=== PATIENT | female | born 1990 | race Caucasian/White ===

== ENCOUNTER 2018-08-28 08:22 | Inpatient (IN) | payer OTHER ==
[2018-08-28 08:51] VITALS: BMI 23.5
--- NOTE | 2018-08-28 10:36 | HP ---
COWS - Scale Resting Pulse: 0= [place] 80 or Below Sweatin= Chills/Flushing Restless Observation: 3= Extraneous Movement Pupil Size: 0= Normal to Room Light Bone or Joint Aches: 4=Acute Joint/Muscle Pain Runny Nose/ Eye Tearin= Runny Nose/Eyes GI Upset > 30mins: 2= Nausea/Diarrhea Tremor Observation: 0= None Yawning Observation: 0= None Anxiety or Irritability: 2=Irritable/Anxious Goose Flesh Skin: 0=Smooth Skin COWS Score: 14 CIWA Score - Admission Criteria OASAS Guidelines: Admission for Medically Managed Detox: Requires at least one of the followin. CIWA greater than 12 2. Seizures within the past 24 hours 3. Delirium tremens within the past 24 hours 4. Hallucinations within the past 24 hours 5. Acute intervention needed for co occurring medical disorder 6. Acute intervention needed for co occurring psychiatric disorder 7. Severe withdrawal that cannot be handled at a lower level of care (continued vomiting, continued diarrhea, abnormal vital signs) requiring intravenous medication and/or fluids 8. Admission ROS [facility] Allergies/Adverse Reactions: Allergies Allergy/AdvReac Type Severity Reaction Status Date / Time No Known Allergies Allergy Verified 08/28/18 09:57 History of Present Illness: patient here requesting detox from heroin use, reports 8 bags/day denies ivdu , first use October 2017 , prior use of Percocet x 4 years taking 10 x 10 mg each daily , switched to heroin this year . Denies other illicits . This is the patient's first detox , not in outpatient program . utox + bzo, + fen, + mop denies benzo , fentanyl use tobacco - denies etoh - denies PMHX : denies PShx : C-sx x 2 ( 9&6 ) , cyrus( 9 yrs ago ) Psych : anxiety , depression , PTSD . SHx : children w/ bio father in [place] . Lives in rented room , 6 weeks ago opiate OD , witnessed by pt . 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 Legal : family court re : custody i-stop : Patient Name: Chiquita Hernandez Date: 1990 Address: [address] [place] [address] Sex: Female Rx Written Rx Dispensed Drug Quantity Days Supply Prescriber Name 03/02/2018 03/04/2018 alprazolam 0.25 mg tablet 10 10 Ella Dodson MD 03/01/2018 03/01/2018 alprazolam 0.25 mg tablet 6 3 Aby Weaver MD Patient Name: Chiquita Hughes Date: 1990 Address: [address] [place] [address] Sex: Female Rx Written Rx Dispensed Drug Quantity Days Supply Prescriber Name 09/08/2017 09/10/2017 oxycodone-acetaminophen 10-325 mg tab 60 30 Shetty, Cy Patient Name: Chiquita Hernandez Date: 1990 Address: [address] [place] [address] Sex: Female Rx Written Rx Dispensed Drug Quantity Days Supply Prescriber Name 09/06/2017 09/06/2017 oxycodone-acetaminophen 10-325 mg tab 60 30 [place], [place]isa, N Exam Limitations: Clinical Condition - Ebola screening Have you traveled outside of the country in the last 21 days: No Have you had contact with anyone from an Ebola affected area: No Have you been sick,other than usual withdrawal symptoms: No - Review of Systems Constitutional: See HPI EENT: reports: Tearing Respiratory: reports: No Symptoms reported Cardiac: reports: No Symptoms Reported GI: reports: Diarrhea, Nausea : reports: No Symptoms Reported Musculoskeletal: reports: Joint Pain, Muscle Pain Integumentary: reports: No Symptoms Reported Neuro: reports: No Symptoms reported Endocrine: reports: No Symptoms Reported Psychiatric: reports: Orientated x3, Agitated, Anxious Patient History - Patient Medical History Hx Asthma: No Hx Chronic Obstructive Pulmonary Disease (COPD): No Hx Cardiac Disorders: No Hx Hypertension: No Hx Seizures: No Hx Diabetes: No Hx Gastrointestinal Disorders: No Hx Genitourinary Disorders: No Hx Sexually Transmitted Disorders: No Hx Renal Disease (ESRD): No Hx Depression: Yes Hx Suicide Attempt: No Hx Schizophrenia: No - Patient Surgical History Past Surgical History: Yes Hx Neurologic Surgery: No Hx Cataract Extraction: No Hx Cardiac Surgery: No Hx Lung Surgery: No Hx Breast Surgery: No Hx Breast Biopsy: No Hx Abdominal Surgery: No Hx Appendectomy: No Hx Cholecystectomy: Yes (in 2010) Hx Genitourinary Surgery: No Hx Section: Yes (x2) Hx Orthopedic Surgery: No Anesthesia Reaction: No - PPD History Previous Implant?: Yes Documented Results: Negative w/o proof Implanted On Prior [facility] Admission?: No - Reproductive History Last Menstrual Period: 08/17/18 Patient : No - Smoking Cessation Smoking history: Never smoked Have you smoked in the past 12 months: No Hx Chewing Tobacco Use: No Initiated information on smoking cessation: No - Substances Abused Heroin Route: Inhalation Frequency: Daily Amount used: 8 bags Age of first use: 27 Date of Last Use: 08/27/18 Family Disease History - Family Disease History Family Disease History: Other: Father (cocaine sober 12 y) Admission Physical Exam BHS - Vital Signs Vital Signs: Vital Signs - 24 hr 08/28/18 08:41 Temperature 97.7 F Pulse Rate 71 Respiratory 18 Rate Blood Pressure 125/78 - Physical General Appearance: Yes: Moderate Distress, Anxious HEENTM: Yes: Hearing grossly Normal, Normocephalic, Normal Voice, Pharynx Normal Respiratory: Yes: Chest Non-Tender, Lungs Clear, Normal Breath Sounds Neck: Yes: No masses,lesions,Nodules, Trachea in good position Breast: Yes: Breast Exam Deferred Cardiology: Yes: Regular Rhythm, Regular Rate, S1, S2 Abdominal: Yes: Normal Bowel Sounds, Soft Genitourinary: Yes: Within Normal Limits Back: Yes: Normal Inspection Musculoskeletal: Yes: full range of Motion, Gait Steady Extremities: Yes: Normal Capillary Refill, Normal Inspection, Normal Range of Motion Neurological: Yes: Fully Oriented, Alert, Motor Strength 5/5 Integumentary: Yes: Normal Color, Dry, Warm - Diagnostic (1) Opiate dependence Current Visit: Yes Status: Acute Qualifiers: Substance use status: in withdrawal Qualified Code(s): F11.23 - Opioid dependence with withdrawal BHS Breath Alcohol Content Breath Alcohol Content: 0 Urine Pregancy Test - Result Urine Test Results: Negative- NO Line Present Urine Drug Screen - Results Drug Screen Negative: No Urine Drug Screen Results: OPI-Opiates, BZO-Benzodiazepines, FEN-Fentanyl
[2018-08-28] MEDS ORDERED: P-EPHED 60MG/TRIPROLIDI 2.5MG TABLET PO PRN (10:43)
[2018-08-28] MEDS ORDERED: MENTHOL/PHENOL 1 EACH UD MM PRN (10:43)
[2018-08-28] MEDS ORDERED: guaiFENesin/D-METHORPHAN HB 10 ML UNIT-DOSE CUPS PO PRN (10:43)
[2018-08-28] MEDS ORDERED: ACETAMINOPHEN 325 MG TABLET (FP) PO PRN (10:43)
[2018-08-28] MEDS ORDERED: MAGNESIUM CITRATE 300 ML BOTTLE PO PRN (10:43)
[2018-08-28] MEDS ORDERED: MAGNESIUM HYDROX 2400MG/30ML ORAL SUSPENSION 30 ML CUP PO PRN (10:43)
[2018-08-28] MEDS ORDERED: MAG HYDROX/AL HYDROX/SIMETH 30 ML UNIT-DOSE CUP PO PRN (10:43)
[2018-08-28] MEDS ORDERED: METHADONE HCL 10 MG TABLET (FOR DETOX USE ONLY) PO ONE ×2 (11:15→23:00)
--- NOTE | 2018-08-28 18:13 | PN ---
S Progress Note Note: pt was assessed and appeared with high anxiety, shakes, sweats. valium 10mg q4hrs for three days ordered. RN was advised to give pt valium prn.
[2018-08-28] MEDS: diazePAM 5 MG TABLET PO PRN ×2 (18:24→22:05)
[2018-08-28] MEDS: THIAMINE HCL 100 MG TABLET (FP) PO SCH (22:04)
[2018-08-28] MEDS: MELATONIN 5 MG TABLETS PO PRN (22:05)
[2018-08-28] MEDS: IBUPROFEN 400 MG TABLET (FP) PO PRN (22:05)
[2018-08-29] MEDS ORDERED: METHADONE HCL 10 MG TABLET (FOR DETOX USE ONLY) PO ONE (10:00)
[2018-08-29 10:01] LABS: HEMATOCRIT 41.5 % (32.4-45.2); HEMOGLOBIN 13.5 GM/dL (10.7-15.3); MCH 27.6 pg (25.7-33.7); MCHC 32.5 g/dl (32.0-36.0); MEAN CELL VOLUME 84.9 fl (80-96); PLATELET COUNT 300 K/MM3 (134-434); RBC 4.89 M/mm3 (3.60-5.2); WHITE BLOOD COUNT 6.3 K/mm3 (4.0-10.0)
[2018-08-29] MEDS: diazePAM 5 MG TABLET PO PRN ×3 (10:37→22:19)
[2018-08-29] MEDS: PRENATAL VITAMINS W/ FOLIC ACID TABLET (FP) PO SCH (10:37)
[2018-08-29 10:52] LABS: ALBUMIN 3.7 g/dl (3.4-5.0); ALK PHOS 66 U/L (45-117); ANION GAP 9 MMOL/L (8-16); BILIRUBIN,TOTAL 0.6 mg/dL (0.2-1); BLOOD UREA NITROGEN 8 mg/dL (7-18); CALCIUM 8.9 mg/dL (8.5-10.1); CHLORIDE 103 mmol/L (98-107); CO2 26 mmol/L (21-32); CREATININE 0.7 mg/dL (0.55-1.3); GLUCOSE,RANDOM 86 mg/dL (74-106); POTASSIUM 3.7 mmol/L (3.5-5.1); SGOT/AST 33 U/L (15-37); SGPT/ALT 36 U/L (13-61); SODIUM 138 mmol/L (136-145); TOT PROT 6.8 g/dl (6.4-8.2)
--- NOTE | 2018-08-29 11:25 | PN ---
BHS COWS - Scale Resting Pulse: 0= [place] 80 or Below Sweatin=Flushed/Facial Moisture Restless Observation: 1= Difficult to Sit Still Pupil Size: 0= Normal to Room Light Bone or Joint Aches: 2= Severe Diffuse Aches Runny Nose/ Eye Tearin= Nasal Congestion GI Upset > 30mins: 0= None Tremor Observation of Outstretched Hands: 2= Slight Tremor Visible Yawning Observation: 2= >3x During Session Anxiety or Irritability: 2=Irritable/Anxious Goose Flesh Skin: 3=Piloerection COWS Score: 15 BHS Progress Note (SOAP) Subjective: depressed sweats shakes anxiety interrupted sleep Objective: 08/29/18 11:26 Vital Signs Temperature 98.4 F 08/29/18 09:21 Pulse Rate 63 08/29/18 09:21 Respiratory Rate 18 08/29/18 09:21 Blood Pressure 115/65 08/29/18 09:21 O2 Sat by Pulse Oximetry (%) Laboratory Tests 08/29/18 08/29/18 08/29/18 07:00 07:00 07:00 WBC 6.3 RBC 4.89 Hgb 13.5 Hct 41.5 MCV 84.9 MCH 27.6 MCHC 32.5 RDW 13.0 Plt Count 300 MPV 10.0 Sodium 138 Potassium 3.7 Chloride 103 Carbon Dioxide 26 Anion Gap 9 BUN 8 Creatinine 0.7 Creat Clearance w eGFR > 60 Random Glucose 86 Calcium 8.9 Total Bilirubin 0.6 AST 33 ALT 36 Alkaline Phosphatase 66 Total Protein 6.8 Albumin 3.7 HIV 1&2 Antibody Screen Negative HIV P24 Antigen Negative labs noted aaox3 ambulating no acute distress Assessment: 08/29/18 11:27 withdrawal sx Plan: continue detox increase fluids psych ordered
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
[2018-08-29] MEDS: hydrOXYzine PAMOATE 50 MG CAPSULE (FP) PO PRN ×2 (14:06→22:19)
[2018-08-29] MEDS: traZODone HCL 100 MG TABLET (FP) PO SCH (22:18)
[2018-08-29] MEDS: THIAMINE HCL 100 MG TABLET (FP) PO SCH (22:18)
[2018-08-30] MEDS ORDERED: METHADONE HCL 5 MG TABLET (FOR DETOX USE ONLY) PO ONE (10:00)
[2018-08-30] MEDS: PRENATAL VITAMINS W/ FOLIC ACID TABLET (FP) PO SCH (10:45)
[2018-08-30] MEDS: diazePAM 5 MG TABLET PO PRN ×3 (10:47→22:04)
[2018-08-30] MEDS: hydrOXYzine PAMOATE 50 MG CAPSULE (FP) PO PRN ×2 (10:48→22:04)
[2018-08-30] MEDS: IBUPROFEN 400 MG TABLET (FP) PO PRN (12:59)
--- NOTE | 2018-08-30 13:06 | PN ---
BHS COWS - Scale Resting Pulse: 0= [place] 80 or Below Sweatin=Flushed/Facial Moisture Restless Observation: 1= Difficult to Sit Still Pupil Size: 0= Normal to Room Light Bone or Joint Aches: 1= Mild Discomfort Runny Nose/ Eye Tearin= Runny Nose/Eyes GI Upset > 30mins: 0= None Tremor Observation of Outstretched Hands: 2= Slight Tremor Visible Yawning Observation: 2= >3x During Session Anxiety or Irritability: 1=Feels Anxious/Irritable Goose Flesh Skin: 0=Smooth Skin COWS Score: 11 BHS Progress Note (SOAP) Subjective: sweats feeling better little anxiety body aches Objective: 08/30/18 13:05 Vital Signs Temperature 96.6 F L 08/30/18 09:27 Pulse Rate 63 08/30/18 09:27 Respiratory Rate 18 08/30/18 09:27 Blood Pressure 112/72 08/30/18 09:27 O2 Sat by Pulse Oximetry (%) Laboratory Tests 08/29/18 08/29/18 08/29/18 07:00 07:00 07:00 WBC 6.3 RBC 4.89 Hgb 13.5 Hct 41.5 MCV 84.9 MCH 27.6 MCHC 32.5 RDW 13.0 Plt Count 300 MPV 10.0 Sodium 138 Potassium 3.7 Chloride 103 Carbon Dioxide 26 Anion Gap 9 BUN 8 Creatinine 0.7 Creat Clearance w eGFR > 60 Random Glucose 86 Calcium 8.9 Total Bilirubin 0.6 AST 33 ALT 36 Alkaline Phosphatase 66 Total Protein 6.8 Albumin 3.7 RPR Titer Nonreactive HIV 1&2 Antibody Screen HIV P24 Antigen 08/29/18 07:00 WBC RBC Hgb Hct MCV MCH MCHC RDW Plt Count MPV Sodium Potassium Chloride Carbon Dioxide Anion Gap BUN Creatinine Creat Clearance w eGFR Random Glucose Calcium Total Bilirubin AST ALT Alkaline Phosphatase Total Protein Albumin RPR Titer HIV 1&2 Antibody Screen Negative HIV P24 Antigen Negative aaox3 ambulating no acute distress Assessment: 08/30/18 13:06 withdrawal sx Plan: continue detox increase fluids
[2018-08-30] MEDS: traZODone HCL 100 MG TABLET (FP) PO SCH (22:04)
[2018-08-30] MEDS: MELATONIN 5 MG TABLETS PO PRN (22:04)
[2018-08-30] MEDS: THIAMINE HCL 100 MG TABLET (FP) PO SCH (22:04)
[2018-08-31 09:23] VITALS: BP 124/58; PULSE 82; TEMP 98.2
[2018-08-31] MEDS ORDERED: METHADONE HCL 10 MG TABLET (FOR DETOX USE ONLY) PO ONE (10:00)
[2018-08-31] MEDS: PRENATAL VITAMINS W/ FOLIC ACID TABLET (FP) PO SCH (10:30)
[2018-08-31] MEDS: hydrOXYzine PAMOATE 50 MG CAPSULE (FP) PO PRN (10:31)
--- NOTE | 2018-08-31 12:05 | PN ---
S Progress Note Note: pt is feeling better; pt has her family picking her up to take her [facility]. pt show no s/s of withdrawals.
--- NOTE | 2018-08-31 12:06 | DS ---
[facility] Detox Discharge Summary Admission Date: 08/28/18 Discharge Date: 08/31/18 - History Present History: Opioid Dependence - Physical Exam Results Vital Signs: Vital Signs Temperature 98.2 F 08/31/18 09:23 Pulse Rate 82 08/31/18 09:23 Respiratory Rate 18 08/31/18 09:23 Blood Pressure 124/58 L 08/31/18 09:23 O2 Sat by Pulse Oximetry (%) - Treatment Hospital Course: Detox Protocol Followed, Detoxed Safely, Responded well, Discharged Condition Good, Rehab Referral Accepted - Medication Discharge Medications: Ambulatory Orders NK [No Known Home Medication] 08/28/18 - Diagnosis (1) Bereavement Current Visit: Yes Status: Chronic (2) Opiate dependence Current Visit: Yes Status: Acute Qualifiers: Substance use status: uncomplicated Qualified Code(s): F11.20 - Opioid dependence, uncomplicated - AMA Did Patient Leave Against Medical Advice: No (pt referred to [facility] )
[2018-09-01] MEDS ORDERED: METHADONE HCL 5 MG TABLET (FOR DETOX USE ONLY) PO ONE (06:00)
== END 2018-08-31 12:27 | disposition home or self-care (01) | DRG 897 ==
LOC: YASAS 08:22 → Y6N 10:58
PROC: HZ2ZZZZ Detoxification Services for Substance Abuse Treatment (ICD-10-PCS; principal; 2018-08-28)
DX: F11.23 Opioid dependence with withdrawal (principal); Z63.4 Disappearance and death of family member
CPT/HCPCS: 36415; 80053; 85027; 86593; 87389

== ENCOUNTER 2019-08-02 08:44 | Inpatient (IN) | payer OTHER ==
[2019-08-02 09:17] VITALS: BMI 24.6
--- NOTE | 2019-08-02 09:50 | HP ---
"COWS - Scale Resting Pulse: 0= [place] 80 or Below Sweatin= Chills/Flushing Restless Observation: 3= Extraneous Movement Pupil Size: 0= Normal to Room Light Bone or Joint Aches: 2= Severe Diffuse Aches Runny Nose/ Eye Tearin= None GI Upset > 30mins: 2= Nausea/Diarrhea Tremor Observation: 0= None Yawning Observation: 0= None Anxiety or Irritability: 4=Extreme Anxiety Goose Flesh Skin: 0=Smooth Skin COWS Score: 12 CIWA Score Nausea/Vomitin Muscle Tremors: None Anxiety: 4-Mod. Anxious/Guarded Agitation: 4-Moderately Restless Paroxysmal Sweats: 2 Orientation: 1-Uncertain about Date Tacttile Disturbances: 0-None Auditory Disturbances: 0-None Visual Disturbances: 0-None Headache: 2-Mild CIWA-Ar Total Score: 15 - Admission Criteria OASAS Guidelines: Admission for Medically Managed Detox: Requires at least one of the followin. CIWA greater than 12 2. Seizures within the past 24 hours 3. Delirium tremens within the past 24 hours 4. Hallucinations within the past 24 hours 5. Acute intervention needed for co occurring medical disorder 6. Acute intervention needed for co occurring psychiatric disorder 7. Severe withdrawal that cannot be handled at a lower level of care (continued vomiting, continued diarrhea, abnormal vital signs) requiring intravenous medication and/or fluids 8. Admitting History and Physical - Past Medical History ...LMP: 11/16/14 - Smoking History Smoking history: Never smoked Have you smoked in the past 12 months: No Aproximately how many cigarettes per day: 4 - Alcohol/Substance Use Hx Alcohol Use: No Admission [facility] Allergies/Adverse Reactions: Allergies Allergy/AdvReac Type Severity Reaction Status Date / Time pineapple Allergy Severe Difficulty Verified 08/02/19 09:10 Breathing History of Present Illness: patient here requesting detox from heroin use, reports 20 bags of heroin/day denies iv, first use October 2017 , relapsed December 2018 , stopped going to outpt program @ [facility] . utox + bzo, + fen, + mop, deidra cocaine : occasional use denies benzo , fentanyl use tobacco - denies etoh: 2 pints liquor/day daily since this year , latest use 2 days ago , + blackouts , denies seizures, + occasional tremors PMHX : denies PShx : C-sx x 2 ( 9&6 ) , cyrus (9 yrs ago ) Psych : anxiety , depression , PTSD . SHx : children w/ bio father in [place] , pt does not have custody lmp 07/01/19 This report was requested by: Savanna Perera | Reference #: [id number] Others' Prescriptions Patient Name: Chiquita Calabrese Date: 1990 Address: [address] [place] [address] [place] [address] Sex: Female Rx Written Rx Dispensed Drug Quantity Days Supply Prescriber Name 01/31/2019 01/31/2019 oxycodone hcl 5 mg tablet 20 3 Spadaccini, Seth PA-Ileana Exam Limitations: Clinical Condition - Ebola screening Have you traveled outside of the country in the last 21 days: No Have you had contact with anyone from an Ebola affected area: No Do you have a fever: No - Review of Systems Constitutional: Loss of Appetite EENT: reports: See HPI Respiratory: reports: No Symptoms reported Cardiac: reports: No Symptoms Reported GI: reports: Diarrhea, Nausea, Poor Appetite, Vomiting : reports: No Symptoms Reported Musculoskeletal: reports: See HPI Integumentary: reports: No Symptoms Reported Neuro: reports: See HPI, Headache Endocrine: reports: No Symptoms Reported Psychiatric: reports: Orientated x3, Agitated, Anxious Patient History - Patient Medical History Hx Asthma: No Hx Chronic Obstructive Pulmonary Disease (COPD): No Hx Cardiac Disorders: No Hx Hypertension: No Hx Seizures: No Hx Diabetes: No Hx Gastrointestinal Disorders: No Hx Genitourinary Disorders: No Hx Sexually Transmitted Disorders: No Hx Renal Disease (ESRD): No Hx Depression: Yes Hx Suicide Attempt: No Hx Schizophrenia: No - Patient Surgical History Past Surgical History: Yes Hx Neurologic Surgery: No Hx Cataract Extraction: No Hx Cardiac Surgery: No Hx Lung Surgery: No Hx Breast Surgery: No Hx Breast Biopsy: No Hx Abdominal Surgery: No Hx Appendectomy: No Hx Cholecystectomy: Yes Hx Genitourinary Surgery: No Hx Section: Yes Hx Orthopedic Surgery: No Anesthesia Reaction: No - PPD History Date: 08/30/18 - Reproductive History Last Menstrual Period: 11/16/14 - Smoking Cessation Smoking history: Never smoked Have you smoked in the past 12 months: No Aproximately how many cigarettes per day: 4 Hx Chewing Tobacco Use: No - Substances abused Alcohol Substance route: Oral Frequency: Daily Amount used: 2 pints of vodka Age of first use: 11 Date of last use: 07/31/19 Heroin Substance route: Inhalation Frequency: Daily Amount used: 20bags Age of first use: 24 Date of last use: 08/01/19 Admission Physical Exam BHS - Vital Signs Vital Signs: Vital Signs - 24 hr 08/02/19 09:12 Temperature 97.5 F L Pulse Rate 70 Respiratory 20 Rate Blood Pressure 118/82 - Physical General Appearance: Yes: Moderate Distress, Anxious HEENTM: Yes: EOMI, Hearing grossly Normal, Normocephalic, Normal Voice Respiratory: Yes: Chest Non-Tender, Lungs Clear, Normal Breath Sounds, No Respiratory Distress, No Accessory Muscle Use Neck: Yes: No masses,lesions,Nodules, Trachea in good position Cardiology: Yes: Regular Rhythm, Regular Rate, S1, S2 Abdominal: Yes: Non Tender, Soft Musculoskeletal: Yes: Gait Steady Extremities: Yes: Normal Range of Motion, Non-Tender, Tremors Neurological: Yes: Fully Oriented, Alert, Motor Strength 5/5, Depressed Affect, Other (anxious) Integumentary: Yes: Warm - Diagnostic (1) Opiate dependence Current Visit: Yes Status: Chronic Qualifiers: Substance use status: uncomplicated Qualified Code(s): F11.20 - Opioid dependence, uncomplicated (2) Cocaine abuse, episodic use Current Visit: Yes Status: Chronic (3) Alcohol use Current Visit: Yes Status: Chronic Breathalyzer - Breathalyzer Breathalyzer: 0 Urine Drug Screen - Test Device Lot number: [id number] Expiration date: 04/10/21 - Control Is test valid?: Yes - Results Drug screen NEGATIVE: No Urine drug screen results: DEIDRA-Cocaine, FEN-Fentanyl, MOP-Opiates, BZO- Benzodiazepines Inpatient Rehab Admission - Rehab Decision to Admit Inpatient rehab admission?: No"
[2019-08-02] MEDS ORDERED: MAG HYDROX/AL HYDROX/SIMETH 30 ML UNIT-DOSE CUP PO PRN (10:09)
[2019-08-02] MEDS ORDERED: ACETAMINOPHEN 325 MG TABLET (FP) PO PRN ×2 (10:09)
[2019-08-02] MEDS ORDERED: MENTHOL/PHENOL 1 EACH UD MM PRN (10:09)
[2019-08-02] MEDS ORDERED: MAGNESIUM CITRATE 300 ML BOTTLE PO PRN (10:09)
[2019-08-02] MEDS ORDERED: IBUPROFEN 400 MG TABLET (FP) PO PRN (10:09)
[2019-08-02] MEDS ORDERED: MELATONIN 5 MG TABLETS PO PRN (10:09)
[2019-08-02] MEDS ORDERED: BISMUTH SUBSALICYLATE 262 MG/15 ML BTL PO PRN (10:09)
[2019-08-02] MEDS ORDERED: MAGNESIUM HYDROX 2400MG/30ML ORAL SUSPENSION 30 ML CUP PO PRN (10:09)
[2019-08-02] MEDS ORDERED: METHADONE HCL 10 MG TABLET (FOR DETOX USE ONLY) PO ONE (10:56)
[2019-08-02] MEDS: hydrOXYzine PAMOATE 25 MG CAPSULE (FP) PO PRN ×2 (12:02→22:11)
--- NOTE | 2019-08-02 12:16 | EKG ---
Test Reason : Blood Pressure : / mmHG Vent. Rate : 055 BPM Atrial Rate : 055 BPM P-R Int : 164 ms QRS Dur : 090 ms QT Int : 456 ms P-R-T Axes : 039 040 019 degrees QTc Int : 436 ms SINUS BRADYCARDIA OTHERWISE NORMAL ECG NO PREVIOUS ECGS AVAILABLE Confirmed by HECTOR PURVIS MD ([id number]) on 08/02/2019 12:16:23 PM Referred By: Confirmed By:HECTOR PURVIS MD
[2019-08-02] MEDS: diazePAM 5 MG TABLET PO SCH ×2 (14:24→22:11)
[2019-08-02 15:02] LABS: HEMOGLOBIN 13.2 GM/dL (10.7-15.3); MCH 28.9 pg (25.7-33.7); MCHC 33.8 g/dl (32.0-36.0); MEAN CELL VOLUME 85.4 fl (80-96); MEAN PLT VOLUME 10.4 fl (7.5-11.1); PLATELET COUNT 305 K/MM3 (134-434); RBC 4.57 M/mm3 (3.60-5.2); RDW 13.5 % (11.6-15.6); WHITE BLOOD COUNT 8.9 K/mm3 (4.0-10.0)
[2019-08-02 15:15] LABS: ALBUMIN 4.1 g/dl (3.4-5.0); BILIRUBIN,TOTAL 0.3 mg/dL (0.2-1); BLOOD UREA NITROGEN 9.7 mg/dL (7-18); CALCIUM 9.6 mg/dL (8.5-10.1); CREATININE 0.6 mg/dL (0.55-1.3); POTASSIUM 3.9 mmol/L (3.5-5.1); TOT PROT 6.9 g/dl (6.4-8.2)
[2019-08-02] MEDS: diazePAM 5 MG TABLET PO PRN (17:46)
[2019-08-02] MEDS: THIAMINE HCL 100 MG TABLET (FP) PO SCH (22:11)
[2019-08-02] MEDS: cloNIDine HCL 0.1 MG TABLET PO PRN (22:11)
[2019-08-02] MEDS: METHOCARBAMOL 500 MG TABLET PO PRN (22:11)
[2019-08-03] MEDS: diazePAM 5 MG TABLET PO SCH ×3 (05:29→21:40)
[2019-08-03] MEDS ORDERED: METHADONE HCL 10 MG TABLET (FOR DETOX USE ONLY) ONE (09:19)
[2019-08-03] MEDS ORDERED: METHADONE HCL 5 MG TABLET (FOR DETOX USE ONLY) ONE (09:19)
[2019-08-03] MEDS ORDERED: METHADONE (DETOX) 20 MG, METHADONE (DETOX) 5 MG PO ONE (10:00)
[2019-08-03] MEDS: diazePAM 5 MG TABLET PO PRN ×2 (10:47→19:09)
[2019-08-03] MEDS: PRENATAL VITAMINS W/ FOLIC ACID TABLET (FP) PO SCH (10:47)
--- NOTE | 2019-08-03 13:24 | PN ---
S CIWA - CIWA Score Nausea/Vomitin Muscle Tremors: None Anxiety: 5 Agitation: 4-Moderately Restless Paroxysmal Sweats: No Perspiration Orientation: 0-Oriented Tacttile Disturbances: 1-Very Mild Itch/Numbness Auditory Disturbances: 0-None Visual Disturbances: 0-None Headache: 0-None Present CIWA-Ar Total Score: 12 BHS COWS - Scale Resting Pulse: 0= [place] 80 or Below Sweatin= No chills or Flushing Restless Observation: 1= Difficult to Sit Still Pupil Size: 0= Normal to Room Light Bone or Joint Aches: 2= Severe Diffuse Aches Runny Nose/ Eye Tearin= None GI Upset > 30mins: 0= None Tremor Observation of Outstretched Hands: 0= None Yawning Observation: 0= None Anxiety or Irritability: 4=Extreme Anxiety Goose Flesh Skin: 3=Piloerection COWS Score: 10 BHS Progress Note (SOAP) Subjective: Nausea, Body Aches, Anxious (Severe). Objective: PATIENT A & O X 3, OBSERVED AMBULATING ON DETOX UNIT UNASSISTED. 08/03/19 13:25 Vital Signs Temperature 97.5 F L 08/03/19 09:09 Pulse Rate 74 08/03/19 09:09 Respiratory Rate 18 08/03/19 09:09 Blood Pressure 113/56 L 08/03/19 09:09 O2 Sat by Pulse Oximetry (%) Laboratory Tests 08/02/19 08/02/19 08/02/19 10:55 10:55 10:55 WBC 8.9 RBC 4.57 Hgb 13.2 Hct 39.0 MCV 85.4 MCH 28.9 MCHC 33.8 RDW 13.5 Plt Count 305 MPV 10.4 Sodium 137 Potassium 3.9 Chloride 104 Carbon Dioxide 27 Anion Gap 6 L BUN 9.7 Creatinine 0.6 Est GFR (CKD-EPI)AfAm 141.76 Est GFR (CKD-EPI)NonAf 122.31 Random Glucose 89 Calcium 9.6 Total Bilirubin 0.3 AST 19 ALT 18 Alkaline Phosphatase 72 Total Protein 6.9 Albumin 4.1 RPR Titer Nonreactive LABS NOTED. Assessment: 08/03/19 13:25 WITHDRAWAL SYMPTOMS. Plan: CONTINUE DETOX. INCREASE DAILY ORAL WATER INTAKE. PRN ORAL VALIUM FOR SEVERE ANXIETY. PRN ROBAXIN FOR BODY ACHES.
[2019-08-03] MEDS: THIAMINE HCL 100 MG TABLET (FP) PO SCH (21:40)
[2019-08-03] MEDS: METHOCARBAMOL 500 MG TABLET PO PRN (21:40)
[2019-08-04] MEDS: diazePAM 5 MG TABLET PO PRN ×4 (01:33→21:17)
[2019-08-04] MEDS: diazePAM 5 MG TABLET PO SCH ×2 (05:28→17:07)
[2019-08-04] MEDS ORDERED: METHADONE HCL 10 MG TABLET (FOR DETOX USE ONLY) PO ONE (10:00)
[2019-08-04] MEDS: PRENATAL VITAMINS W/ FOLIC ACID TABLET (FP) PO SCH (10:26)
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
[2019-08-04] MEDS ORDERED: hydrOXYzine PAMOATE 25 MG CAPSULE (FP) PO PRN ×2 (11:44→12:53)
[2019-08-04] MEDS: cloNIDine HCL 0.1 MG TABLET PO PRN (13:42)
--- NOTE | 2019-08-04 16:56 | PN ---
[facility] CIWA - CIWA Score Nausea/Vomitin-Mild Nausea/No Vomiting Muscle Tremors: 2 Anxiety: 2 Agitation: 2 Paroxysmal Sweats: 2 Orientation: 0-Oriented Tacttile Disturbances: 0-None Auditory Disturbances: 0-None Visual Disturbances: 0-None Headache: 0-None Present CIWA-Ar Total Score: 9 BHS COWS - Scale Resting Pulse: 0= [place] 80 or Below Sweatin= Chills/Flushing Restless Observation: 3= Extraneous Movement Pupil Size: 0= Normal to Room Light Bone or Joint Aches: 2= Severe Diffuse Aches Runny Nose/ Eye Tearin= Nasal Congestion GI Upset > 30mins: 2= Nausea/Diarrhea Tremor Observation of Outstretched Hands: 0= None Yawning Observation: 0= None Anxiety or Irritability: 1=Feels Anxious/Irritable Goose Flesh Skin: 0=Smooth Skin COWS Score: 10 S Progress Note (SOAP) Subjective: Bad anxiety Objective: 08/04/19 16:53 Last Vital Signs Temp Pulse Resp BP Pulse Ox 99.3 F 70 18 121/65 08/04/19 13:46 08/04/19 13:46 08/04/19 13:46 08/04/19 13:46 Laboratory Tests 08/02/19 08/02/19 08/02/19 10:55 10:55 10:55 WBC 8.9 RBC 4.57 Hgb 13.2 Hct 39.0 MCV 85.4 MCH 28.9 MCHC 33.8 RDW 13.5 Plt Count 305 MPV 10.4 Sodium 137 Potassium 3.9 Chloride 104 Carbon Dioxide 27 Anion Gap 6 L BUN 9.7 Creatinine 0.6 Est GFR (CKD-EPI)AfAm 141.76 Est GFR (CKD-EPI)NonAf 122.31 Random Glucose 89 Calcium 9.6 Total Bilirubin 0.3 AST 19 ALT 18 Alkaline Phosphatase 72 Total Protein 6.9 Albumin 4.1 RPR Titer Nonreactive Labs reviewed Assessment: 08/04/19 16:54 Withdrawal sxs Plan: Continue detox Encouraged PO water hydration
[2019-08-04] MEDS: THIAMINE HCL 100 MG TABLET (FP) PO SCH (21:13)
[2019-08-04] MEDS: METHOCARBAMOL 500 MG TABLET PO PRN (21:13)
[2019-08-04] MEDS ORDERED: QUEtiapine FUMARATE 50 MG TABLET PO SCH (22:00)
[2019-08-05] MEDS ORDERED: diazePAM 5 MG TABLET PO ONE (06:00)
[2019-08-05] MEDS: diazePAM 5 MG TABLET PO SCH (06:06)
--- NOTE | 2019-08-05 09:16 | PN ---
[facility] Progress Note Note: pt states she wants to leave because her boyfriend left and she needs to leave right now. Pt was advised to stay to complete her detox and prevent relapse, seizures, DT, OD, and or loss. Pt chose to sign out AMA.
--- NOTE | 2019-08-05 09:20 | DS ---
[facility] Detox Discharge Summary Admission Date: 08/02/19 - History Present History: Alcohol Dependence, Cocaine Dependence, Opioid Dependence - Physical Exam Results Vital Signs: Vital Signs Temperature 98.1 F 08/05/19 06:44 Pulse Rate 72 08/05/19 06:44 Respiratory Rate 18 08/05/19 06:44 Blood Pressure 104/51 L 08/05/19 06:44 O2 Sat by Pulse Oximetry (%) Pertinent Admission Physical Exam Findings: pt arrived in withdrawals Vital Signs Temperature 98.1 F 08/05/19 06:44 Pulse Rate 72 08/05/19 06:44 Respiratory Rate 18 08/05/19 06:44 Blood Pressure 104/51 L 08/05/19 06:44 O2 Sat by Pulse Oximetry (%) Laboratory Tests 08/02/19 08/02/19 08/02/19 10:55 10:55 10:55 WBC 8.9 RBC 4.57 Hgb 13.2 Hct 39.0 MCV 85.4 MCH 28.9 MCHC 33.8 RDW 13.5 Plt Count 305 MPV 10.4 Sodium 137 Potassium 3.9 Chloride 104 Carbon Dioxide 27 Anion Gap 6 L BUN 9.7 Creatinine 0.6 Est GFR (CKD-EPI)AfAm 141.76 Est GFR (CKD-EPI)NonAf 122.31 Random Glucose 89 Calcium 9.6 Total Bilirubin 0.3 AST 19 ALT 18 Alkaline Phosphatase 72 Total Protein 6.9 Albumin 4.1 RPR Titer Nonreactive aaox3 ambulating pt signed out AMA regardless of being encouraged to stay to prevent relapse/ risk of OD, loss. - Treatment Patient has Accepted a Rehab Referral to: pt declined aftercare/referral - Medication Discharge Medications: Ambulatory Orders NK [No Known Home Medication] 08/28/18 - Diagnosis (1) Substance-induced anxiety disorder Current Visit: Yes Status: Acute (2) Substance-induced sleep disorder Current Visit: Yes Status: Acute (3) Cocaine abuse, episodic use Current Visit: Yes Status: Chronic (4) Opiate dependence Current Visit: Yes Status: Chronic Qualifiers: Substance use status: uncomplicated Qualified Code(s): F11.20 - Opioid dependence, uncomplicated (5) Back pain Current Visit: No Status: Acute (6) Chronic back pain Current Visit: No Status: Acute (7) Gastritis Current Visit: No Status: Acute Qualifiers: Gastritis type: unspecified gastritis Chronicity: acute Gastritis bleeding: without bleeding Qualified Code(s): K29.00 - Acute gastritis without bleeding (8) Low back strain Current Visit: No Status: Acute (9) PTSD (post-traumatic stress disorder) Current Visit: No Status: Chronic
[2019-08-05 09:22] VITALS: BP 121/79; PULSE 96; TEMP 97.5
[2019-08-05] MEDS ORDERED: METHADONE (DETOX) 10 MG, METHADONE (DETOX) 5 MG PO ONE (10:00)
[2019-08-06] MEDS ORDERED: diazePAM 5 MG TABLET PO ONE (06:00)
[2019-08-06] MEDS ORDERED: METHADONE HCL 10 MG TABLET (FOR DETOX USE ONLY) PO ONE (10:00)
[2019-08-07] MEDS ORDERED: METHADONE HCL 5 MG TABLET (FOR DETOX USE ONLY) PO ONE (06:00)
== END 2019-08-05 09:18 | disposition left against medical advice (07) | DRG 770 ==
LOC: YASAS 08:44 → Y6N 10:56
PROVIDERS: ADMIT Allergy & Immunology; ATTEND Allergy & Immunology
PROC: HZ2ZZZZ Detoxification Services for Substance Abuse Treatment (ICD-10-PCS; principal; 2019-08-02)
DX: F11.23 Opioid dependence with withdrawal (principal); F10.230 Alcohol dependence with withdrawal, uncomplicated; F14.20 Cocaine dependence, uncomplicated; F19.280 Other psychoactive substance dependence with psychoactive substance-induced anxiety disorder; F19.282 Other psychoactive substance dependence with psychoactive substance-induced sleep disorder; F41.9 Anxiety disorder, unspecified; F43.10 Post-traumatic stress disorder, unspecified; S39.012A Strain of muscle, fascia and tendon of lower back, initial encounter; Z90.49 Acquired absence of other specified parts of digestive tract; Z91.018 Allergy to other foods; X58.XXXA Exposure to other specified factors, initial encounter; Y93.89 Activity, other specified; Y92.89 Other specified places as the place of occurrence of the external cause; Y99.8 Other external cause status
CPT/HCPCS: 36415; 80053; 81025; 85027; 86593; 93005; 93010; J0735

== ENCOUNTER 2019-10-10 15:47 | Inpatient (IN) | payer OTHER ==
[2019-10-10 17:26] VITALS: BMI 24.6
--- NOTE | 2019-10-10 18:16 | HP ---
COWS - Scale Resting Pulse: 0= [place] 80 or Below Sweatin= Chills/Flushing Restless Observation: 1= Difficult to Sit Still Pupil Size: 1= Pupils >than Normal Bone or Joint Aches: 2= Severe Diffuse Aches Runny Nose/ Eye Tearin= Runny Nose/Eyes GI Upset > 30mins: 3= Vomiting/Diarrhea Tremor Observation: 2= Slight Tremor Visible Yawning Observation: 0= None Anxiety or Irritability: 2=Irritable/Anxious Goose Flesh Skin: 0=Smooth Skin COWS Score: 14 CIWA Score Nausea/Vomitin Muscle Tremors: 4-Moderate,w/Arms Extend Anxiety: 4-Mod. Anxious/Guarded Agitation: 2 Paroxysmal Sweats: 2 Orientation: 0-Oriented Tacttile Disturbances: 0-None Auditory Disturbances: 0-None Visual Disturbances: 0-None Headache: 1-Very Mild CIWA-Ar Total Score: 19 - Admission Criteria OASAS Guidelines: Admission for Medically Managed Detox: Requires at least one of the followin. CIWA greater than 12 2. Seizures within the past 24 hours 3. Delirium tremens within the past 24 hours 4. Hallucinations within the past 24 hours 5. Acute intervention needed for co occurring medical disorder 6. Acute intervention needed for co occurring psychiatric disorder 7. Severe withdrawal that cannot be handled at a lower level of care (continued vomiting, continued diarrhea, abnormal vital signs) requiring intravenous medication and/or fluids 8. Admitting History and Physical - Admission History of Present Illness: 29 yo F PMH of hypothyroidism ( non adherent to medication) , polysubstance abuse presents for detox and rehab for heroin and alcohol. Pt was last here for detox in 2018, was sober for 3 weeks and relapsed. Heroin: reports 20 bags of heroin/day denies iv, first use five years ago last use yesterday evening 7-8 bags. Use IH last overdose 1.5 y ago. has OD > 1 x. has narcan kit. stopped going to outpt program @ [facility] . interested in considering a methadone program. cocaine : occasional use . last use 3-4 days ago . 2x week. 1-2 bags. first 22 yo denies benzo , fentanyl use tobacco - denies alcohol: 2 pints tequila or vodka /day daily,first drink at 16 yo latest use 1 day ago , last blackout 2-3 day ago, + withdrwal seizure x 2 - last year. + occasional tremors PShx : C-sx x 2 ( 9&6 ) , cholestectomy (9 yrs), appendectomy Psych : anxiety , depression , PTSD . SHx : children w/ bio father in [place] , pt does not have custody . lives with grandmother. unemployed LMP 09/15/2019 Counselled pt to see helmet binder following DC to further manage her thyroid History Source: Patient Limitations to Obtaining History: No Limitations - Past Medical History ...LMP: 09/15/19 ...: No - Smoking History Smoking history: Never smoked Have you smoked in the past 12 months: No Aproximately how many cigarettes per day: 4 - Alcohol/Substance Use Hx Alcohol Use: No Admission ROS [facility] Allergies/Adverse Reactions: Allergies Allergy/AdvReac Type Severity Reaction Status Date / Time pineapple Allergy Severe Difficulty Verified 08/02/19 09:10 Breathing No Known Drug Allergies Allergy Verified 10/10/19 19:00 Exam Limitations: No Limitations - Ebola screening Do you have a fever: No - Review of Systems Constitutional: Diaphoresis EENT: denies: Difficulty Swallowing Respiratory: denies: Shortness of Breath Cardiac: denies: Chest Pain GI: reports: Nausea, Vomiting Patient History - Patient Medical History Hx Asthma: No Hx Chronic Obstructive Pulmonary Disease (COPD): No Hx Cardiac Disorders: No Hx Hypertension: No Hx Seizures: No Hx Diabetes: No Hx Gastrointestinal Disorders: No Hx Genitourinary Disorders: No Hx Sexually Transmitted Disorders: No Hx Renal Disease (ESRD): No Hx Depression: Yes Hx Suicide Attempt: No Hx Schizophrenia: No - Patient Surgical History Past Surgical History: Yes Hx Neurologic Surgery: No Hx Cataract Extraction: No Hx Cardiac Surgery: No Hx Lung Surgery: No Hx Breast Surgery: No Hx Breast Biopsy: No Hx Abdominal Surgery: No Hx Appendectomy: No Hx Cholecystectomy: Yes Hx Genitourinary Surgery: No Hx Section: Yes Hx Orthopedic Surgery: No Anesthesia Reaction: No - PPD History Previous Implant?: Yes Documented Results: Negative w/proof Date: 08/30/18 Results: 0 MM - Reproductive History Last Menstrual Period: 09/15/19 Patient : No - Smoking Cessation Smoking history: Never smoked Have you smoked in the past 12 months: No Aproximately how many cigarettes per day: 4 Hx Chewing Tobacco Use: No Initiated information on smoking cessation: No - Substances abused Alcohol Substance route: Oral Frequency: Daily Amount used: liquor- 2 pints Age of first use: 17 Date of last use: 10/09/19 Heroin Substance route: Inhalation Frequency: Daily Amount used: 20 bags Age of first use: 23 Date of last use: 10/09/19 Admission Physical Exam BHS - Vital Signs Vital Signs: Vital Signs - 24 hr 10/10/19 17:14 Temperature 98.1 F Pulse Rate 68 Respiratory 16 Rate Blood Pressure 126/78 Breathalyzer - Breathalyzer Breathalyzer: 0 Urine Drug Screen - Test Device Lot number: [id number] Expiration date: 08/10/25 - Control Is test valid?: Yes - Results Drug screen NEGATIVE: No Urine drug screen results: RUPAL-Cocaine, FEN-Fentanyl, MOP-Opiates, MTD-Methadone , BZO-Benzodiazepines Inpatient Rehab Admission - Rehab Decision to Admit Inpatient rehab admission?: No
[2019-10-10] MEDS ORDERED: MENTHOL/PHENOL 1 EACH UD MM PRN (18:49)
[2019-10-10] MEDS ORDERED: ACETAMINOPHEN 325 MG TABLET (FP) PO PRN ×2 (18:49)
[2019-10-10] MEDS ORDERED: MAGNESIUM CITRATE 300 ML BOTTLE PO PRN (18:49)
[2019-10-10] MEDS ORDERED: IBUPROFEN 400 MG TABLET (FP) PO PRN (18:49)
[2019-10-10] MEDS ORDERED: MAGNESIUM HYDROX 2400MG/30ML ORAL SUSPENSION 30 ML CUP PO PRN (18:49)
[2019-10-10] MEDS ORDERED: BISMUTH SUBSALICYLATE 524 MG/30 ML UD PO PRN (18:49)
[2019-10-10] MEDS ORDERED: MAG HYDROX/AL HYDROX/SIMETH 30 ML UNIT-DOSE CUP PO PRN (18:49)
--- NOTE | 2019-10-10 18:51 | PN ---
Teaching Attending Note Name of Resident: Shanna Hsu ATTENDING PHYSICIAN STATEMENT I saw and evaluated the patient. I reviewed the resident's note and discussed the case with the resident. I agree with the resident's findings and plan as documented. SUBJECTIVE: 29 y.o. female pt requesting detox from heroin use, reports 20 bags of heroin/day denies iv recent use , relapsed 3 weeks after leaving detox Jul 2019 , states her grandfather had . cocaine : occasional use tobacco - denies etoh: 2 pints liquor/day, + blackouts , claims she had a seizure 1 yr ago , during previous admission denied seizures, + occasional tremors PMHX : hypothyroidism non- compliant w/ meds > 6 months . PShx : C-sx x 2 ( 9 & 7 ) , cyrus (9 yrs ago ) Psych : anxiety , depression , PTSD . SHx : children w/ bio father in [place] , pt does not have custody [facility] 09/12/2019 OBJECTIVE: anxious Vital Signs - 24 hr 10/10/19 17:14 Temperature 98.1 F Pulse Rate 68 Respiratory 16 Rate Blood Pressure 126/78 ASSESSMENT AND PLAN: OUD - Methadone detox AUD - Valium detox repeat EKG . encouraged pt to consider MMTP .
[2019-10-10] MEDS ORDERED: METHADONE HCL 10 MG TABLET (FOR DETOX USE ONLY) PO ONE (19:15)
[2019-10-10] MEDS: diazePAM 5 MG TABLET PO PRN (19:42)
[2019-10-10] MEDS: THIAMINE HCL 100 MG TABLET (FP) PO SCH (21:50)
[2019-10-10] MEDS: METHOCARBAMOL 500 MG TABLET PO PRN (21:50)
[2019-10-10] MEDS: cloNIDine HCL 0.1 MG TABLET PO PRN (21:50)
[2019-10-10] MEDS: diazePAM 5 MG TABLET PO SCH (21:50)
[2019-10-11] MEDS: diazePAM 5 MG TABLET PO SCH ×3 (06:05→21:44)
[2019-10-11] MEDS: hydrOXYzine PAMOATE 25 MG CAPSULE (FP) PO PRN ×2 (06:05→14:41)
[2019-10-11] MEDS ORDERED: METHADONE HCL 5 MG TABLET (FOR DETOX USE ONLY) ONE (08:58)
[2019-10-11] MEDS ORDERED: METHADONE HCL 10 MG TABLET (FOR DETOX USE ONLY) ONE (08:59)
[2019-10-11] MEDS ORDERED: METHADONE (DETOX) 20 MG, METHADONE (DETOX) 5 MG PO ONE (10:00)
[2019-10-11] MEDS: PRENATAL VITAMINS W/ FOLIC ACID TABLET (FP) PO SCH (10:11)
[2019-10-11 10:18] LABS: HEMATOCRIT 36.9 % (32.4-45.2); HEMOGLOBIN 12.6 GM/dL (10.7-15.3); MCH 28.7 pg (25.7-33.7); MCHC 34.1 g/dl (32.0-36.0); MEAN CELL VOLUME 84.1 fl (80-96); MEAN PLT VOLUME 9.8 fl (7.5-11.1); PLATELET COUNT 322 K/MM3 (134-434); RBC 4.39 M/mm3 (3.60-5.2); RDW 13.3 % (11.6-15.6); WHITE BLOOD COUNT 5.6 K/mm3 (4.0-10.0)
[2019-10-11 10:30] LABS: ALBUMIN 3.6 g/dl (3.4-5.0); BILIRUBIN,TOTAL 0.6 mg/dL (0.2-1); BLOOD UREA NITROGEN 8.1 mg/dL (7-18); CALCIUM 9.1 mg/dL (8.5-10.1); CREATININE 0.5 mg/dL (0.55-1.3); POTASSIUM 4.2 mmol/L (3.5-5.1); TOT PROT 6.4 g/dl (6.4-8.2)
[2019-10-11] MEDS: diazePAM 5 MG TABLET PO PRN ×3 (10:39→18:47)
--- NOTE | 2019-10-11 13:29 | PN ---
[facility] CIWA - CIWA Score Nausea/Vomitin-No Nausea/No Vomiting Muscle Tremors: 2 Anxiety: 2 Agitation: 3 Paroxysmal Sweats: 3 Orientation: 0-Oriented Tacttile Disturbances: 0-None Auditory Disturbances: 0-None Visual Disturbances: 0-None Headache: 0-None Present CIWA-Ar Total Score: 10 BHS COWS - Scale Resting Pulse: 0= [place] 80 or Below Sweatin= Chills/Flushing Restless Observation: 1= Difficult to Sit Still Pupil Size: 0= Normal to Room Light Bone or Joint Aches: 1= Mild Discomfort Runny Nose/ Eye Tearin= Nasal Congestion GI Upset > 30mins: 0= None Tremor Observation of Outstretched Hands: 2= Slight Tremor Visible Yawning Observation: 2= >3x During Session Anxiety or Irritability: 2=Irritable/Anxious Goose Flesh Skin: 0=Smooth Skin COWS Score: 10 S Progress Note (SOAP) Subjective: sweats shakes body aches restless agitation interrupted sleep Objective: 10/11/19 13:28 Vital Signs Temperature 97.1 F L 10/11/19 10:01 Pulse Rate 71 10/11/19 10:01 Respiratory Rate 18 10/11/19 10:01 Blood Pressure 108/61 10/11/19 10:01 O2 Sat by Pulse Oximetry (%) Laboratory Tests 10/10/19 10/11/19 10/11/19 17:49 08:30 08:30 WBC 5.6 RBC 4.39 Hgb 12.6 Hct 36.9 MCV 84.1 MCH 28.7 MCHC 34.1 RDW 13.3 Plt Count 322 MPV 9.8 Sodium 138 Potassium 4.2 Chloride 106 Carbon Dioxide 26 Anion Gap 7 L BUN 8.1 Creatinine 0.5 L Est GFR (CKD-EPI)AfAm 150.52 Est GFR (CKD-EPI)NonAf 129.87 Random Glucose 96 Calcium 9.1 Total Bilirubin 0.6 AST 13 L ALT 23 Alkaline Phosphatase 70 Total Protein 6.4 Albumin 3.6 POC Urine HCG, Qual Negative aaox3 ambulating no acute distress Assessment: 10/11/19 13:28 withdrawals Plan: continue detox increase fluids
[2019-10-11] MEDS: METHOCARBAMOL 500 MG TABLET PO PRN (14:41)
--- NOTE | 2019-10-11 15:08 | EKG ---
Test Reason : Blood Pressure : / mmHG Vent. Rate : 065 BPM Atrial Rate : 065 BPM P-R Int : 150 ms QRS Dur : 086 ms QT Int : 436 ms P-R-T Axes : -07 038 018 degrees QTc Int : 453 ms SINUS RHYTHM WITH MARKED SINUS ARRHYTHMIA WHEN COMPARED WITH ECG OF 02-AUG-2019 11:26, NO SIGNIFICANT CHANGE WAS FOUND Confirmed by HECTOR PURVIS MD ([id number]) on 10/11/2019 3:08:14 PM Referred By: [id number] CARDOSO Confirmed By:HECTOR PURVIS MD
[2019-10-11] MEDS: cloNIDine HCL 0.1 MG TABLET PO PRN ×2 (17:14→21:46)
[2019-10-11] MEDS ORDERED: chlordiazePOXIDE HCL 25 MG CAPSULE PO ONE (19:56)
--- NOTE | 2019-10-11 19:56 | PN ---
[facility] Progress Note Note: pt c/o tremors and feeling uncomfortable w/ Valium Vital Signs - 24 hr 10/10/19 10/11/19 10/11/19 22:01 02:08 03:52 Temperature 97.9 F Pulse Rate 59 L Respiratory 17 16 16 Rate Blood Pressure 115/66 10/11/19 10/11/19 10/11/19 06:40 10:01 14:13 Temperature 98.1 F 97.1 F L 98.1 F Pulse Rate 57 L 71 63 Respiratory 16 18 19 Rate Blood Pressure 103/53 L 108/61 103/61 10/11/19 10/11/19 17:20 18:43 Temperature 98.4 F Pulse Rate 76 76 Respiratory 18 18 Rate Blood Pressure 119/65 106/65 P : librium 50 mg x once , pt agreeable .
[2019-10-11] MEDS: MELATONIN 5 MG TABLETS PO PRN (21:45)
[2019-10-11] MEDS: THIAMINE HCL 100 MG TABLET (FP) PO SCH (21:46)
[2019-10-12] MEDS: diazePAM 5 MG TABLET PO PRN ×4 (03:56→21:34)
[2019-10-12] MEDS: METHOCARBAMOL 500 MG TABLET PO PRN (03:56)
[2019-10-12] MEDS: diazePAM 5 MG TABLET PO SCH ×2 (07:01→21:19)
[2019-10-12] MEDS ORDERED: METHADONE HCL 10 MG TABLET (FOR DETOX USE ONLY) PO ONE (10:00)
[2019-10-12] MEDS: PRENATAL VITAMINS W/ FOLIC ACID TABLET (FP) PO SCH (10:09)
--- NOTE | 2019-10-12 10:47 | PN ---
S CIWA - CIWA Score Nausea/Vomitin-No Nausea/No Vomiting Muscle Tremors: 4-Moderate,w/Arms Extend Anxiety: 5 Agitation: 4-Moderately Restless Paroxysmal Sweats: No Perspiration Orientation: 0-Oriented Tacttile Disturbances: 0-None Auditory Disturbances: 0-None Visual Disturbances: 0-None Headache: 0-None Present CIWA-Ar Total Score: 13 S COWS - Scale Resting Pulse: 0= [place] 80 or Below Sweatin= Chills/Flushing Restless Observation: 3= Extraneous Movement Pupil Size: 0= Normal to Room Light Bone or Joint Aches: 0= None Runny Nose/ Eye Tearin= None GI Upset > 30mins: 0= None Tremor Observation of Outstretched Hands: 2= Slight Tremor Visible Yawning Observation: 0= None Anxiety or Irritability: 4=Extreme Anxiety Goose Flesh Skin: 0=Smooth Skin COWS Score: 10 BHS Progress Note (SOAP) Subjective: C/o Severe Anxiety, irritability/restlessness, crying and states depressed and wants to see the psych. Reports she takes psych meds, last taken 3 weeks ago. Denies s/h/i. Objective: 10/12/19 10:50 Vital Signs - 24 hr 10/11/19 10/11/19 10/11/19 14:13 17:20 18:43 Temperature 98.1 F 98.4 F Pulse Rate 63 76 76 Respiratory 19 18 18 Rate Blood Pressure 103/61 119/65 106/65 10/11/19 10/12/19 10/12/19 21:49 03:30 07:20 Temperature 98.4 F Pulse Rate 74 87 Respiratory 17 16 16 Rate Blood Pressure 127/61 95/56 L 10/12/19 10/12/19 09:37 09:39 Temperature 97.0 F L 97.0 F L Pulse Rate 66 66 Respiratory 16 16 Rate Blood Pressure 104/59 L 104/59 L Laboratory Tests 10/10/19 10/11/19 10/11/19 17:49 08:30 08:30 WBC 5.6 RBC 4.39 Hgb 12.6 Hct 36.9 MCV 84.1 MCH 28.7 MCHC 34.1 RDW 13.3 Plt Count 322 MPV 9.8 Sodium 138 Potassium 4.2 Chloride 106 Carbon Dioxide 26 Anion Gap 7 L BUN 8.1 Creatinine 0.5 L Est GFR (CKD-EPI)AfAm 150.52 Est GFR (CKD-EPI)NonAf 129.87 Random Glucose 96 Calcium 9.1 Total Bilirubin 0.6 AST 13 L ALT 23 Alkaline Phosphatase 70 Total Protein 6.4 Albumin 3.6 POC Urine HCG, Qual Negative RPR Titer 10/11/19 08:30 WBC RBC Hgb Hct MCV MCH MCHC RDW Plt Count MPV Sodium Potassium Chloride Carbon Dioxide Anion Gap BUN Creatinine Est GFR (CKD-EPI)AfAm Est GFR (CKD-EPI)NonAf Random Glucose Calcium Total Bilirubin AST ALT Alkaline Phosphatase Total Protein Albumin POC Urine HCG, Qual RPR Titer Nonreactive 10/12/19 17:39 Alert o x 3 nad oob ambulating with steady gait Assessment: 10/12/19 10:50 withdrawal sx RADAMES Anxiety Hx Depression Plan: Continue detox increase po fluids psych consult ordered today. Vistaril prn
[2019-10-12] MEDS: hydrOXYzine PAMOATE 25 MG CAPSULE (FP) PO PRN (13:18)
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
[2019-10-12] MEDS: THIAMINE HCL 100 MG TABLET (FP) PO SCH (21:33)
[2019-10-12] MEDS: cloNIDine HCL 0.1 MG TABLET PO PRN (21:33)
[2019-10-12] MEDS: MELATONIN 5 MG TABLETS PO PRN (21:33)
[2019-10-13] MEDS: diazePAM 5 MG TABLET PO PRN ×4 (03:23→18:02)
[2019-10-13] MEDS ORDERED: diazePAM 5 MG TABLET PO ONE (06:00)
[2019-10-13] MEDS ORDERED: METHADONE HCL 10 MG TABLET (FOR DETOX USE ONLY) ONE (08:56)
[2019-10-13] MEDS ORDERED: METHADONE HCL 5 MG TABLET (FOR DETOX USE ONLY) ONE (08:56)
[2019-10-13] MEDS: PRENATAL VITAMINS W/ FOLIC ACID TABLET (FP) PO SCH (09:31)
[2019-10-13] MEDS ORDERED: METHADONE (DETOX) 10 MG, METHADONE (DETOX) 5 MG PO ONE (10:00)
--- NOTE | 2019-10-13 12:28 | PN ---
[facility] Progress Note Note: Psychiatric nurse practitioner note: Call received in reference to patient not receiving seroquel last night. Patient seen by Dr. Lawson. Dr. Lawson note read and appreciated. Will order Seroquel 100mg HS.
--- NOTE | 2019-10-13 21:26 | PN ---
BHS COWS - Scale Resting Pulse: 0= MT 80 or Below Sweatin= Chills/Flushing Restless Observation: 1= Difficult to Sit Still Pupil Size: 2= Moderately Dilated Bone or Joint Aches: 2= Severe Diffuse Aches Runny Nose/ Eye Tearin= None GI Upset > 30mins: 0= None Tremor Observation of Outstretched Hands: 2= Slight Tremor Visible Yawning Observation: 0= None Anxiety or Irritability: 2=Irritable/Anxious Goose Flesh Skin: 0=Smooth Skin COWS Score: 10 BHS Progress Note (SOAP) Subjective: OPIOD WITHDRAWAL SX ANXIOUS, SHAKES, SWEATING, RESTLESSNESS, IRRITABLE Objective: 10/13/19 21:27 Laboratory Tests 10/10/19 10/11/19 10/11/19 17:49 08:30 08:30 WBC 5.6 RBC 4.39 Hgb 12.6 Hct 36.9 MCV 84.1 MCH 28.7 MCHC 34.1 RDW 13.3 Plt Count 322 MPV 9.8 Sodium 138 Potassium 4.2 Chloride 106 Carbon Dioxide 26 Anion Gap 7 L BUN 8.1 Creatinine 0.5 L Est GFR (CKD-EPI)AfAm 150.52 Est GFR (CKD-EPI)NonAf 129.87 Random Glucose 96 Calcium 9.1 Total Bilirubin 0.6 AST 13 L ALT 23 Alkaline Phosphatase 70 Total Protein 6.4 Albumin 3.6 POC Urine HCG, Qual Negative RPR Titer 10/11/19 08:30 WBC RBC Hgb Hct MCV MCH MCHC RDW Plt Count MPV Sodium Potassium Chloride Carbon Dioxide Anion Gap BUN Creatinine Est GFR (CKD-EPI)AfAm Est GFR (CKD-EPI)NonAf Random Glucose Calcium Total Bilirubin AST ALT Alkaline Phosphatase Total Protein Albumin POC Urine HCG, Qual RPR Titer Nonreactive Vital Signs Period Temp Pulse Resp BP Sys/Richardson Pulse Ox Last 24 Hr 97.2 F-98.2 F 50-110 16-18 95-148/49-90 PE ALERT AND ORIENTED X 3 SKIN WARM, + SWEATING PUPILS MILDLY DILATED GI NT, ND EXT FULL ROM, + TREMORS ANXIOUS/IRRITABLE Assessment: 10/13/19 21:28 OPIOD WITHDRAWAL SX Plan: CONTINUE DETOX ENCOURAGE FLUIDS MONITOR CLINICALLY
[2019-10-13] MEDS ORDERED: QUEtiapine FUMARATE 100 MG TABLET (FP) PO SCH (22:00)
[2019-10-13] MEDS: THIAMINE HCL 100 MG TABLET (FP) PO SCH (22:08)
[2019-10-13] MEDS: METHOCARBAMOL 500 MG TABLET PO PRN (22:10)
[2019-10-13] MEDS: hydrOXYzine PAMOATE 25 MG CAPSULE (FP) PO PRN (22:10)
[2019-10-14] MEDS ORDERED: diazePAM 5 MG TABLET PO PRN (08:33)
--- NOTE | 2019-10-14 09:34 | PN ---
BHS COWS - Scale Resting Pulse: 1= [place] 81-100 Sweatin= Chills/Flushing Restless Observation: 1= Difficult to Sit Still Pupil Size: 0= Normal to Room Light Bone or Joint Aches: 1= Mild Discomfort Runny Nose/ Eye Tearin= None GI Upset > 30mins: 0= None Tremor Observation of Outstretched Hands: 0= None Yawning Observation: 0= None Anxiety or Irritability: 0= None Goose Flesh Skin: 0=Smooth Skin COWS Score: 4 BHS Progress Note (SOAP) Subjective: anxiety restless Objective: 10/14/19 09:33 Vital Signs Temperature 98.4 F 10/14/19 07:11 Pulse Rate 74 10/14/19 07:11 Respiratory Rate 16 10/14/19 07:11 Blood Pressure 101/55 L 10/14/19 07:11 O2 Sat by Pulse Oximetry (%) aaox3 ambulating no acute distress Assessment: 10/14/19 09:34 withdrawals Plan: continue detox valium 10mg prn x one day d/c in am
[2019-10-14 09:57] VITALS: BP 131/71; PULSE 81; TEMP 97.7
[2019-10-14] MEDS: PRENATAL VITAMINS W/ FOLIC ACID TABLET (FP) PO SCH (09:59)
[2019-10-14] MEDS ORDERED: METHADONE HCL 10 MG TABLET (FOR DETOX USE ONLY) PO ONE (10:00)
--- NOTE | 2019-10-14 13:31 | DS ---
[facility] Detox Discharge Summary Admission Date: 10/10/19 Discharge Date: 10/14/19 - History Present History: Opioid Dependence, Sedative Dependence - Physical Exam Results Vital Signs: Vital Signs Temperature 97.7 F 10/14/19 09:02 Pulse Rate 81 10/14/19 09:02 Respiratory Rate 18 10/14/19 09:02 Blood Pressure 131/71 10/14/19 09:02 O2 Sat by Pulse Oximetry (%) Pertinent Admission Physical Exam Findings: Vital Signs Temperature 97.7 F 10/14/19 09:02 Pulse Rate 81 10/14/19 09:02 Respiratory Rate 18 10/14/19 09:02 Blood Pressure 131/71 10/14/19 09:02 O2 Sat by Pulse Oximetry (%) Laboratory Tests 10/10/19 10/11/19 10/11/19 17:49 08:30 08:30 WBC 5.6 RBC 4.39 Hgb 12.6 Hct 36.9 MCV 84.1 MCH 28.7 MCHC 34.1 RDW 13.3 Plt Count 322 MPV 9.8 Sodium 138 Potassium 4.2 Chloride 106 Carbon Dioxide 26 Anion Gap 7 L BUN 8.1 Creatinine 0.5 L Est GFR (CKD-EPI)AfAm 150.52 Est GFR (CKD-EPI)NonAf 129.87 Random Glucose 96 Calcium 9.1 Total Bilirubin 0.6 AST 13 L ALT 23 Alkaline Phosphatase 70 Total Protein 6.4 Albumin 3.6 POC Urine HCG, Qual Negative RPR Titer 10/11/19 08:30 WBC RBC Hgb Hct MCV MCH MCHC RDW Plt Count MPV Sodium Potassium Chloride Carbon Dioxide Anion Gap BUN Creatinine Est GFR (CKD-EPI)AfAm Est GFR (CKD-EPI)NonAf Random Glucose Calcium Total Bilirubin AST ALT Alkaline Phosphatase Total Protein Albumin POC Urine HCG, Qual RPR Titer Nonreactive aaox3 ambulating no acute distress - Treatment Hospital Course: Detox Protocol Followed, Detoxed Safely, Responded well, Discharged Condition Good, Rehab Referral Accepted - Medication Discharge Medications: Ambulatory Orders NK [No Known Home Medication] 08/28/18 - Diagnosis (1) Back pain Status: Chronic Qualifiers: Back pain location: back pain in unspecified location (2) Chronic back pain Status: Acute (3) Gastritis Status: Chronic Qualifiers: Gastritis type: unspecified gastritis Chronicity: acute Gastritis bleeding: without bleeding Qualified Code(s): K29.00 - Acute gastritis without bleeding (4) Substance-induced anxiety disorder Status: Acute (5) Substance-induced sleep disorder Status: Acute (6) Alcohol use disorder Status: Chronic (7) Cocaine abuse, episodic use Status: Chronic (8) History of bipolar disorder Status: Chronic (9) Insomnia Status: Chronic (10) Nicotine dependence Status: Chronic Qualifiers: Nicotine product type: cigarettes Substance use status: uncomplicated Qualified Code(s): F17.210 - Nicotine dependence, cigarettes, uncomplicated (11) Opiate dependence Status: Chronic Qualifiers: Substance use status: uncomplicated Qualified Code(s): F11.20 - Opioid dependence, uncomplicated (12) PTSD (post-traumatic stress disorder) Status: Chronic (13) Substance induced mood disorder Status: Chronic - AMA Did Patient Leave Against Medical Advice: No
[2019-10-15] MEDS ORDERED: METHADONE HCL 5 MG TABLET (FOR DETOX USE ONLY) PO ONE (06:00)
== END 2019-10-14 10:40 | disposition home or self-care (01) | DRG 773 ==
LOC: YASAS 15:47 → Y6N 18:40
PROVIDERS: ADMIT Allergy & Immunology; ATTEND Allergy & Immunology
PROC: HZ2ZZZZ Detoxification Services for Substance Abuse Treatment (ICD-10-PCS; principal; 2019-10-10)
DX: F11.23 Opioid dependence with withdrawal (principal); F10.230 Alcohol dependence with withdrawal, uncomplicated; F13.20 Sedative, hypnotic or anxiolytic dependence, uncomplicated; F14.20 Cocaine dependence, uncomplicated; F17.210 Nicotine dependence, cigarettes, uncomplicated; F19.24 Other psychoactive substance dependence with psychoactive substance-induced mood disorder; F31.81 Bipolar II disorder; F43.10 Post-traumatic stress disorder, unspecified; F41.9 Anxiety disorder, unspecified; G47.00 Insomnia, unspecified; M54.5 Low back pain; E03.9 Hypothyroidism, unspecified; Z90.49 Acquired absence of other specified parts of digestive tract; Z91.14 Patient's other noncompliance with medication regimen; Z91.19 Patient's noncompliance with other medical treatment and regimen; Z91.018 Allergy to other foods
CPT/HCPCS: 36415; 80053; 81025; 85027; 86593; 93005; 93010; J0735

== ENCOUNTER 2020-03-09 14:45 | Inpatient (IN) | payer OTHER ==
--- NOTE | 2020-03-09 15:29 | BHS.RME ---
Substance Use & Tx History - Substance Use History Alcohol Substance amount: 2 pints Vodka, few beers Frequency of use: Daily Substance route: Oral Date of Last Use: 03/08/20 (First drink age 15 y. Seizure years ago. Blackout years ago. 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 OD x 3 in context of using benzo. last OD Jul 2018) Cocaine- Powder Substance amount: 1-2 bags Frequency of use: Less than 3 times per week Substance route: Inhalation (ex: sniffing or snorting) Date of Last Use: 03/08/20 (First use age 24y) Nicotine Substance amount: one pack Frequency of use: Daily Substance route: Smoking Date of Last Use: 03/09/20 (First use age 15y) - Last Treatment Date of last treatment: 10/10 to 10/14/19 Treatment type: Substance Use Disorder (RADAMES) Where was last treatment: Detox Physical/Psych/Mental Status - Behavior General Behavior: Increased activity (restlessness, agitation) Eye Contact: Normal - Cooperativeness Cooperativeness: Cooperative - Thinking Thought Processes: Tight Thought content: Future oriented - Physical Health Problems Is patient presently having any pain?: No Does patient presently have any injuries (include location): No Does patient currently have a fever: No COWS - Scale Resting Pulse: 1= [place] 81-100 Sweatin= Chills/Flushing Restless Observation: 1= Difficult to Sit Still Pupil Size: 1= Pupils >than Normal Bone or Joint Aches: 1= Mild Discomfort Runny Nose/ Eye Tearin= Runny Nose/Eyes GI Upset > 30mins: 3= Vomiting/Diarrhea Tremor Observation: 2= Slight Tremor Visible Yawning Observation: 0= None Anxiety or Irritability: 2=Irritable/Anxious Goose Flesh Skin: 0=Smooth Skin COWS Score: 14 CIWA Nausea/Vomitin-Int. Nausea w/Dry Heave Muscle Tremors: 4-Moderate,w/Arms Extend Anxiety: 4-Mod. Anxious/Guarded Agitation: 1-Slight > Activity Paroxysmal Sweats: 3 Orientation: 0-Oriented Tacttile Disturbances: 0-None Auditory Disturbances: 0-None Visual Disturbances: 0-None Headache: 3-Moderate CIWA-Ar Total Score: 19
[2020-03-09 16:29] VITALS: BMI 26.6
--- NOTE | 2020-03-09 17:14 | HP ---
COWS - Scale Resting Pulse: 1= [place] 81-100 Sweatin=Flushed/Facial Moisture Restless Observation: 1= Difficult to Sit Still Pupil Size: 2= Moderately Dilated (Pupils = 5 mm) Bone or Joint Aches: 1= Mild Discomfort Runny Nose/ Eye Tearin= Runny Nose/Eyes GI Upset > 30mins: 3= Vomiting/Diarrhea Tremor Observation: 2= Slight Tremor Visible Yawning Observation: 0= None Anxiety or Irritability: 2=Irritable/Anxious Goose Flesh Skin: 0=Smooth Skin COWS Score: 16 CIWA Score Nausea/Vomitin-Int. Nausea w/Dry Heave Muscle Tremors: 4-Moderate,w/Arms Extend Anxiety: 4-Mod. Anxious/Guarded Agitation: 1-Slight > Activity Paroxysmal Sweats: 3 Orientation: 0-Oriented Tacttile Disturbances: 0-None Auditory Disturbances: 0-None Visual Disturbances: 0-None Headache: 2-Mild (Frontal, dull, "4") CIWA-Ar Total Score: 18 - Admission Criteria OASAS Guidelines: Admission for Medically Managed Detox: Requires at least one of the followin. CIWA greater than 12 2. Seizures within the past 24 hours 3. Delirium tremens within the past 24 hours 4. Hallucinations within the past 24 hours 5. Acute intervention needed for co occurring medical disorder 6. Acute intervention needed for co occurring psychiatric disorder 7. Severe withdrawal that cannot be handled at a lower level of care (continued vomiting, continued diarrhea, abnormal vital signs) requiring intravenous medication and/or fluids 8. Admitting History and Physical - Past Medical History ...LMP: 09/15/19 - Smoking History Smoking history: Current every day smoker Have you smoked in the past 12 months: No Aproximately how many cigarettes per day: 20 - Alcohol/Substance Use Hx Alcohol Use: No Admission ROS BHS - HPI Chief Complaint: Here because I want to stop using. I'm experiencing withdrawal. Allergies/Adverse Reactions: Allergies Allergy/AdvReac Type Severity Reaction Status Date / Time pineapple Allergy Severe Difficulty Verified 03/09/20 16:30 Breathing No Known Drug Allergies Allergy Verified 03/09/20 16:30 History of Present Illness: 29 yo patient presents w/ alcohol and opioid withdrawal seeking detox INNA: 0.0 UTox: + FEN/RUPAL Patient PDMP results show Subtex. Patient states hasn't been taking because it causes withdrawal. Reviewed relationship of bupe w/ opioid use and associated symptoms. Patient informed will be started back on own subtex once in complete withdrawal, and verbalizes an understanding. Heroin use began at age 24. Uses 30 bags/day/nasally. Last used last night. Alcohol use began at age 15. Currently drinks 2 pints vodka/day. Last drink last night. Cocaine use began at age 27. Currently uses 1-2 bags/wk. sniffs Nicotine use began at age 14. Smokes 1 PPD. PMHx: Denies States PCP told her in past thyroid levels elevated - never given a diagnosis or started on meds MHHx: Bipolar -not on meds x 1 month. Sees a community MH Provider. Insomnia. Denies thoughts of harming self or others SHx: Domiciled. SSD. Denies current legal issues. Patient Name: Chiquita Calabrese Date: 1990 Address: [address] [place] [address] [place] [address] Sex: Female Rx Written Rx Dispensed Drug Quantity Days Supply Prescriber Name Payment Method Dispenser 03/02/2020 03/02/2020 buprenorphine 8 mg tablet sl 87 29 WildApple MD Medicaid [facility] #[id number] 02/12/2020 02/19/2020 buprenorphine 8 mg tablet sl 21 7 WildApple gerrad MD Medicaid [facility] #[id number] 01/22/2020 01/31/2020 buprenorphine 8 mg tablet sl 60 20 WildApple gerard MD Medicaid [facility] #[id number] 12/25/2019 01/03/2020 buprenorphine 8 mg tablet sl 90 30 WildApple MD Medicaid [facility] #[id number] 12/02/2019 12/20/2019 buprenorphine 8 mg tablet sl 42 14 WildApple gerard MD Medicaid [facility] #[id number] 12/02/2019 12/02/2019 buprenorphine 8 mg tablet sl 48 16 WildApple gerard MD Medicaid [facility] #[id number] 11/18/2019 11/19/2019 buprenorphine 8 mg tablet sl 42 14 WildApple gerard MD Medicaid [facility] #[id number] 11/13/2019 11/15/2019 buprenorphine 2 mg tablet sl 56 14 WildApple gerard MD Medicaid [facility] #[id number] 11/01/2019 11/01/2019 clonazepam 1 mg tablet 12 6 Miranda Bethea MD Other [facility] #[id number] Exam Limitations: No Limitations - Ebola screening Have you traveled outside of the country in the last 21 days: No (Denies COVID exposure. ) Have you had contact with anyone from an Ebola affected area: No Have you been sick,other than usual withdrawal symptoms: No Do you have a fever: No - Review of Systems Constitutional: Chills, Diaphoresis, Changes in sleep (Difficulty falling and staying asleep) EENT: reports: Dental Problems (Missing/crask teeth. Chews and swallows ok) Respiratory: reports: No Symptoms reported Cardiac: reports: No Symptoms Reported GI: reports: Diarrhea (loose/watery/greenish 2 hrs ago), Nausea, Vomiting (x 1 at 12 noon), Abdominal cramping : reports: No Symptoms Reported Musculoskeletal: reports: Joint Pain (achy - states r/t withdrawal) Integumentary: reports: No Symptoms Reported Neuro: reports: Headache (Frontal, dull, "4") Endocrine: reports: No Symptoms Reported Hematology: reports: No Symptoms Reported Psychiatric: reports: Orientated x3, Agitated, Anxious, Depressed (Denies thoughts of harming self or others) Patient History - Patient Medical History Hx Asthma: No Hx Chronic Obstructive Pulmonary Disease (COPD): No Hx Cardiac Disorders: No Hx Hypertension: No Hx Seizures: Yes (R/T ALCOHOL WITHDRAWALS 2 YEARS AGO) Hx Diabetes: No Hx Gastrointestinal Disorders: No Hx Genitourinary Disorders: No Hx Sexually Transmitted Disorders: No Hx Renal Disease (ESRD): No Hx Depression: Yes Hx Suicide Attempt: No Hx Schizophrenia: No - Patient Surgical History Past Surgical History: Yes Hx Neurologic Surgery: No Hx Cataract Extraction: No Hx Cardiac Surgery: No Hx Lung Surgery: No Hx Breast Surgery: No Hx Breast Biopsy: No Hx Abdominal Surgery: No Hx Appendectomy: Yes Hx Cholecystectomy: Yes Hx Genitourinary Surgery: No Hx Section: Yes (X2) Hx Orthopedic Surgery: No Anesthesia Reaction: No - PPD History Previous Implant?: Yes Documented Results: Negative w/proof Implanted On Prior R Admission?: Yes PPD to be Administered?: Yes - Reproductive History Patient is a Female of Child Bearing Age (11 -55 yrs old): Yes Last Menstrual Period: 01/17/20 (irregular) Patient : No (HCG neg) - Smoking Cessation Smoking history: Current every day smoker Have you smoked in the past 12 months: Yes Aproximately how many cigarettes per day: 20 Hx Chewing Tobacco Use: No Initiated information on smoking cessation: Yes 'Breaking Loose' booklet given: 03/09/20 - Substance & Tx. History Hx Alcohol Use: Yes Hx Substance Use: Yes Substance Use Type: Alcohol, Cocaine, Heroin Hx Substance Use Treatment: Yes (detox, rehab, currently on Subutex) - Substances abused Alcohol Substance route: Oral Frequency: Daily Amount used: 2 PINTS OF VODKA Age of first use: 15 Date of last use: 03/08/20 Heroin Substance route: Inhalation Frequency: Daily Amount used: 3 BUNDLES Age of first use: 24 Date of last use: 03/08/20 Cocaine Substance route: Inhalation Frequency: 1-2 times per week Amount used: 1-2 BAGS Age of first use: 24 Date of last use: 03/08/20 Admission Physical Exam S - Vital Signs Vital Signs: Vital Signs - 24 hr 03/09/20 16:27 Temperature 97.6 F Pulse Rate 81 Respiratory 20 Rate Blood Pressure 128/88 - Physical General Appearance: Yes: Nourished, Mild Distress, Tremorous, Sweating (Increased facial moisture), Anxious HEENTM: Yes: EOMI, Hearing grossly Normal, Normocephalic, MARYURI (Pupils = 5 mm), Pharynx Normal Respiratory: Yes: Lungs Clear (Pulse Ox = 99%), Normal Breath Sounds, No Respiratory Distress Neck: Yes: No masses,lesions,Nodules, Supple Breast: Yes: Breast Exam Deferred Cardiology: Yes: Regular Rhythm, Regular Rate, S1, S2 Abdominal: Yes: Normal Bowel Sounds, Non Tender, Flat, Soft Genitourinary: Yes: Within Normal Limits Back: Yes: Normal Inspection Musculoskeletal: Yes: full range of Motion, Gait Steady Extremities: Yes: Normal Capillary Refill, Tremors (Gross tremors) Neurological: Yes: dental prosthetist II-XII NML intact, Fully Oriented, Alert, Motor Strength 5/5, Normal Response Integumentary: Yes: Normal Color, Warm, Moist (Increased facial moisture) Lymphatic: Yes: Within Normal Limits - Diagnostic (1) Alcohol dependence with withdrawal, uncomplicated Status: Acute Comment: . (2) Cocaine abuse, episodic use Status: Chronic Comment: . (3) Insomnia Status: Chronic Qualifiers: Insomnia type: unspecified Qualified Code(s): G47.00 - Insomnia, unspecified Comment: . (4) Nicotine dependence Status: Chronic Qualifiers: Nicotine product type: cigarettes Substance use status: uncomplicated Qualified Code(s): F17.210 - Nicotine dependence, cigarettes, uncomplicated Comment: . (5) Opioid dependence on agonist therapy Status: Chronic Cleared for Admission S - Detox or Rehab [facility] Level of Care: Medically Managed Detox Regimen/Protocol: Ativan Claeared for Rehab Admission: No Breathalyzer - Breathalyzer Breathalyzer: 0 Urine Drug Screen - Test Device Lot number: [id number] Expiration date: 05/11/21 - Control Is test valid?: Yes - Results Drug screen NEGATIVE: No Urine drug screen results: RUPAL-Cocaine, FEN-Fentanyl Inpatient Rehab Admission - Rehab Decision to Admit Inpatient rehab admission?: No
[2020-03-09] MEDS ORDERED: NICOTINE POLACRILEX 2 MG GUM BUC PRN (17:34)
[2020-03-09] MEDS ORDERED: guaiFENesin 200 MG/10 ML 10 ML UNIT-DOSE CUPS PO PRN (17:34)
[2020-03-09] MEDS ORDERED: ACETAMINOPHEN 325 MG TABLET (FP) PO PRN ×2 (17:34)
[2020-03-09] MEDS ORDERED: METHOCARBAMOL 500 MG TABLET PO PRN (17:34)
[2020-03-09] MEDS ORDERED: ONDANSETRON *ODT* 4 MG TABLET SL ONE (17:34)
[2020-03-09] MEDS ORDERED: MAG HYDROX/AL HYDROX/SIMETH 30 ML UNIT-DOSE CUP PO PRN (17:34)
[2020-03-09] MEDS ORDERED: MENTHOL/PHENOL 1 EACH UD MM PRN (17:34)
[2020-03-09] MEDS ORDERED: MAGNESIUM CITRATE 300 ML BOTTLE PO PRN (17:34)
[2020-03-09] MEDS ORDERED: IBUPROFEN 400 MG TABLET (FP) PO PRN (17:34)
[2020-03-09] MEDS ORDERED: BISMUTH SUBSALICYLATE 524 MG/30 ML UD PO PRN (17:34)
[2020-03-09] MEDS ORDERED: MAGNESIUM HYDROX 2400MG/30ML ORAL SUSPENSION 30 ML CUP PO PRN (17:34)
[2020-03-09] MEDS ORDERED: LORazepam 1 MG TABLET PO PRN (17:58)
[2020-03-09] MEDS ORDERED: cloNIDine HCL 0.1 MG TABLET PO PRN (18:01)
[2020-03-09] MEDS: hydrOXYzine PAMOATE 25 MG CAPSULE (FP) PO PRN ×2 (18:41→22:25)
[2020-03-09] MEDS: LORazepam 2 MG TABLET PO SCH (22:25)
[2020-03-09] MEDS: THIAMINE HCL 100 MG TABLET (FP) PO SCH (22:25)
[2020-03-09] MEDS: MELATONIN 5 MG TABLETS PO SCH (22:25)
[2020-03-09] MEDS ORDERED: QUEtiapine FUMARATE 100 MG TABLET (FP) PO ONE ×2 (23:00)
[2020-03-10] MEDS: LORazepam 2 MG TABLET PO SCH ×4 (04:35→22:20)
[2020-03-10] MEDS: hydrOXYzine PAMOATE 25 MG CAPSULE (FP) PO PRN ×2 (09:18→15:13)
[2020-03-10] MEDS: NICOTINE 21 MG/24 HOURS TOPICAL PATCH TD SCH (10:21)
[2020-03-10] MEDS: PRENATAL VITAMINS W/ FOLIC ACID TABLET (FP) PO SCH (10:21)
[2020-03-10] MEDS ORDERED: METHADONE HCL 10 MG TABLET (FOR DETOX USE ONLY) PO ONE (10:50)
[2020-03-10] MEDS ORDERED: NALOXONE HCL 0.4 MG/ML VIAL IM PRN (10:50)
--- NOTE | 2020-03-10 10:55 | PN ---
[facility] CIWA - CIWA Score Nausea/Vomitin-Mild Nausea/No Vomiting Muscle Tremors: 4-Moderate,w/Arms Extend Anxiety: 3 Agitation: 2 Paroxysmal Sweats: 1-Minimal Palms Moist Orientation: 0-Oriented Tacttile Disturbances: 1-Very Mild Itch/Numbness Auditory Disturbances: 0-None Visual Disturbances: 2-Mild Sensitivity Headache: 0-None Present CIWA-Ar Total Score: 14 BHS COWS - Scale Resting Pulse: 1= [place] 81-100 Sweatin= Chills/Flushing Restless Observation: 0= Sits Still Pupil Size: 1= Pupils >than Normal Bone or Joint Aches: 2= Severe Diffuse Aches Runny Nose/ Eye Tearin= None GI Upset > 30mins: 2= Nausea/Diarrhea Tremor Observation of Outstretched Hands: 2= Slight Tremor Visible Yawning Observation: 0= None Anxiety or Irritability: 2=Irritable/Anxious Goose Flesh Skin: 3=Piloerection COWS Score: 14 [facility] Progress Note (SOAP) Subjective: 29 years old female admitted on 03/09/20 for alcohol and opiate withdrawal sx management ms coronel is taking subutex 8 mg sl tid as medication assisted treatment for opiate addiction [facility] pharmacy dose not have subutex at this time initiates methadone detox regiment for fentyl abuse cows of 16 upon admission methadone regiment is necessary to avoid opiate withdrawal discomfort ms coronel will be seen by a psychiatrist and resume psychotropic medication when necessary Objective: 03/10/20 10:59 Vital Signs - 24 hr 03/09/20 03/09/20 03/09/20 16:27 18:41 20:54 Temperature 97.6 F 97.1 F L 97.5 F L Pulse Rate 81 61 83 Respiratory 20 18 18 Rate Blood Pressure 128/88 128/89 114/76 O2 Sat by Pulse 100 100 Oximetry (%) 03/10/20 03/10/20 03/10/20 00:24 03:25 06:08 Temperature 97.3 F L Pulse Rate 70 Respiratory 18 16 18 Rate Blood Pressure 110/66 O2 Sat by Pulse 100 Oximetry (%) 03/10/20 08:40 Temperature 97.7 F Pulse Rate 100 H Respiratory 18 Rate Blood Pressure 103/80 O2 Sat by Pulse Oximetry (%) 03/10/20 10:59 lab pending Assessment: 03/10/20 10:59 alcohol and opiate withdrawal Plan: ativan and methadone regiment s
[2020-03-10 11:32] LABS: ALBUMIN 3.7 g/dl (3.4-5.0); BILIRUBIN,TOTAL 0.5 mg/dL (0.2-1); BLOOD UREA NITROGEN 10.6 mg/dL (7-18); CALCIUM 9.2 mg/dL (8.5-10.1); CREATININE 0.7 mg/dL (0.55-1.3); POTASSIUM 3.9 mmol/L (3.5-5.1); TOT PROT 6.6 g/dl (6.4-8.2)
[2020-03-10 11:35] LABS: HEMATOCRIT 39.4 % (32.4-45.2); MCH 28.7 pg (25.7-33.7); MEAN CELL VOLUME 86.8 fl (80-96); MEAN PLT VOLUME 10.4 fl (7.5-11.1); PLATELET COUNT 308 K/MM3 (134-434); RBC 4.54 M/mm3 (3.60-5.2); RDW 13.3 % (11.6-15.6); WHITE BLOOD COUNT 8.3 K/mm3 (4.0-10.0)
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
[2020-03-10 16:54] LABS: URINE APPEARANCE CLEAR; URINE BILIRUBIN NEGATIVE (NEGATIVE); URINE COLOR YELLOW; URINE GLUCOSE (UA) NEGATIVE (NEGATIVE); URINE KETONE NEGATIVE (NEGATIVE); URINE LEUK ESTERASE NEGATIVE (NEGATIVE); URINE NITRITE NEGATIVE (NEGATIVE); URINE PROTEIN NEGATIVE (NEGATIVE); URINE UROBILINOGEN 0.2 mg/dL (0.2-1.0)
[2020-03-10] MEDS ORDERED: QUEtiapine FUMARATE 100 MG TABLET (FP) PO SCH (22:00)
[2020-03-10] MEDS ORDERED: AMITRIPTYLINE HCL 25 MG TABLET PO SCH (22:00)
[2020-03-10] MEDS: THIAMINE HCL 100 MG TABLET (FP) PO SCH (22:20)
[2020-03-10] MEDS: MELATONIN 5 MG TABLETS PO SCH (22:21)
[2020-03-11] MEDS: LORazepam 1 MG TABLET PO SCH ×2 (05:36→10:05)
[2020-03-11 08:54] VITALS: BP 107/66; PULSE 72; TEMP 97.8
--- NOTE | 2020-03-11 09:22 | PN ---
S CIWA - CIWA Score Nausea/Vomitin-Mild Nausea/No Vomiting Muscle Tremors: 2 Anxiety: 2 Agitation: 1-Slight > Activity Paroxysmal Sweats: No Perspiration Orientation: 0-Oriented Tacttile Disturbances: 1-Very Mild Itch/Numbness Auditory Disturbances: 0-None Visual Disturbances: 2-Mild Sensitivity Headache: 0-None Present CIWA-Ar Total Score: 9 BHS COWS - Scale Resting Pulse: 0= [place] 80 or Below Sweatin= No chills or Flushing Restless Observation: 0= Sits Still Pupil Size: 1= Pupils >than Normal Bone or Joint Aches: 1= Mild Discomfort Runny Nose/ Eye Tearin= None GI Upset > 30mins: 2= Nausea/Diarrhea Tremor Observation of Outstretched Hands: 2= Slight Tremor Visible Yawning Observation: 1= 1-2x During Session Anxiety or Irritability: 2=Irritable/Anxious Goose Flesh Skin: 0=Smooth Skin COWS Score: 9 S Progress Note (SOAP) Subjective: 29 years old female admitted on 03/09/20 for alcohol and opiate withdrawal sx management treating with ativan and methadone detox regiments reports not returning to subutex program consider methadone program "I get them but not taking them" reports anxiety that psychotropic dosages are 1/8 of strength as "I take them at home" psychiatrist referral Objective: 03/11/20 09:22 Vital Signs - 24 hr 03/10/20 03/10/20 03/10/20 12:33 12:58 16:45 Temperature 98.1 F 97.8 F Pulse Rate 85 84 Respiratory 16 16 Rate Blood Pressure 107/66 123/75 O2 Sat by Pulse 99 Oximetry (%) 03/10/20 03/10/20 03/11/20 20:30 22:30 00:46 Temperature 97.3 F L Pulse Rate 79 97 H Respiratory 18 16 18 Rate Blood Pressure 108/77 144/97 O2 Sat by Pulse 100 Oximetry (%) 03/11/20 03/11/20 03/11/20 03:26 06:17 08:40 Temperature 97.7 F 97.8 F Pulse Rate 66 72 Respiratory 18 18 18 Rate Blood Pressure 100/63 107/66 O2 Sat by Pulse 97 Oximetry (%) Laboratory Tests 03/09/20 03/10/20 03/10/20 17:18 08:15 08:15 WBC 8.3 RBC 4.54 Hgb 13.0 Hct 39.4 MCV 86.8 MCH 28.7 MCHC 33.0 RDW 13.3 Plt Count 308 MPV 10.4 Sodium Potassium Chloride Carbon Dioxide Anion Gap BUN Creatinine Est GFR (CKD-EPI)AfAm Est GFR (CKD-EPI)NonAf Random Glucose Calcium Total Bilirubin AST ALT Alkaline Phosphatase Total Protein Albumin Urine Color Urine Appearance Urine pH Ur Specific [place] Urine Protein Urine Glucose (UA) Urine Ketones Urine Blood Urine Nitrite Urine Bilirubin Urine Urobilinogen Ur Leukocyte Esterase POC Urine HCG, Qual Negative Syphilis Serology Non-reactive 03/10/20 03/10/20 08:15 13:40 WBC RBC Hgb Hct MCV MCH MCHC RDW Plt Count MPV Sodium 141 Potassium 3.9 Chloride 106 Carbon Dioxide 26 Anion Gap 8 BUN 10.6 Creatinine 0.7 Est GFR (CKD-EPI)AfAm 134.75 Est GFR (CKD-EPI)NonAf 116.26 Random Glucose 91 Calcium 9.2 Total Bilirubin 0.5 AST 7 L ALT 19 Alkaline Phosphatase 73 Total Protein 6.6 Albumin 3.7 Urine Color Yellow Urine Appearance Clear Urine pH 8.0 Ur Specific [place] 1.015 Urine Protein Negative Urine Glucose (UA) Negative Urine Ketones Negative Urine Blood Negative Urine Nitrite Negative Urine Bilirubin Negative Urine Urobilinogen 0.2 Ur Leukocyte Esterase Negative POC Urine HCG, Qual Syphilis Serology lab noted Assessment: 03/11/20 09:23 alcohol and opiate withdrawal 03/11/20 09:24 anxiety Plan: ativan and methadone regiments amitrypline seroquel
[2020-03-11] MEDS ORDERED: METHADONE HCL 5 MG TABLET (FOR DETOX USE ONLY) PO ONE (10:00)
[2020-03-11] MEDS: NICOTINE 21 MG/24 HOURS TOPICAL PATCH TD SCH (10:05)
[2020-03-11] MEDS: PRENATAL VITAMINS W/ FOLIC ACID TABLET (FP) PO SCH (10:07)
--- NOTE | 2020-03-11 12:09 | PN ---
Psychiatric Progress Note Vital Signs: Vital Signs Period Temp Pulse Resp BP Sys/Richardson Pulse Ox Last 24 Hr 97.3 F-98.1 F 66-97 16-18 100-144/63-97 97-100 Date of Session: 03/11/20 Chief Complaint:: " I feel anxious. My daughter tested positive for COVID-19. I can't sleep." HPI: Day 3 of detoxification treatment. Patient was evaluated by narrative writer on 03/10/20 for mental status and medication management. Hospital course was unremarkable until the patient got informed that her 10 year-old daughter (currently in custody of biological father) tested positive for COVID-19. Ms Calabrese became apprehensive and tense. Insomnia worsened, which prompted psyc hiatric re-consultation for reassurance + adjustment of medications. ROS: Patient is noted as alert, fully oriented, anxious and concerned. She is ambulatory. Steady gait. No physical distress. Current Medications: Active Medications Generic Name Dose Route Start Last Admin Trade Name Freq PRN Reason Stop Dose Admin Acetaminophen 650 mg 03/09/20 17:34 Tylenol - PO Q6H PRN PAIN LEVEL 4 - 6 Acetaminophen 650 mg 03/09/20 17:34 Tylenol - PO Q6H PRN FEVER Al Hydroxide/Mg Hydroxide 30 ml 03/09/20 17:34 Mylanta Oral Suspension - PO Q6H PRN DYSPEPSIA Amitriptyline HCl 25 mg 03/10/20 22:00 03/10/20 22:20 Elavil - PO 25 mg HS DARYL Administration Bismuth Subsalicylate 524 mg 03/09/20 17:34 Pepto-Bismol - PO Q1H PRN DIARRHEA Clonidine 0.1 mg 03/09/20 18:01 03/10/20 22:29 Catapres - PO 0.1 mg BID PRN Administration WITHDRAWAL(CONT SUBST) Eucalyptus/Menthol/Phenol/Sorbitol 1 each 03/09/20 17:34 Cepastat Lozenge - MM 03/15/20 17:34 Q4H PRN SORE THROAT Guaifenesin 10 ml 03/09/20 17:34 Robitussin - PO Q6H PRN COUGH Hydroxyzine Pamoate 25 mg 03/09/20 18:12 03/10/20 15:13 Vistaril - PO 03/11/20 18:11 25 mg Q4HWA PRN Administration ANXIETY Ibuprofen 400 mg 03/09/20 17:34 Motrin - PO Q6H PRN PAIN LEVEL 1 - 3 Lorazepam 1 mg 03/11/20 05:00 03/11/20 10:05 Ativan - PO 03/11/20 23:01 1 mg 0500,1100,1700,2300 DARYL Administration Lorazepam 1 mg 03/09/20 17:58 03/09/20 18:41 Ativan - PO 03/11/20 23:59 1 mg Q4H PRN Administration Symptoms of Withdrawal Lorazepam 0.5 mg 03/12/20 05:00 Ativan - PO 03/12/20 23:01 Q6H DARYL Lorazepam 0.5 mg 03/12/20 00:00 Ativan - PO 03/12/20 23:59 Q4H PRN Symptoms of Withdrawal Magnesium Citrate 300 ml 03/09/20 17:34 Citroma - PO Q48H PRN CONSTIPATION Magnesium Hydroxide 30 ml 03/09/20 17:34 Milk Of Magnesia - PO PRN PRN CONSTIPATION Melatonin 5 mg 03/09/20 22:00 03/10/20 22:21 Melatonin PO 5 mg HS DARYL Administration Methadone HCl 10 mg 03/12/20 10:00 Dolophine - PO 03/12/20 10:01 ONCE ONE Methadone HCl 5 mg 03/13/20 06:00 Dolophine - PO 03/13/20 06:01 ONCE ONE Methocarbamol 500 mg 03/09/20 17:34 Robaxin - PO 03/15/20 17:34 Q6H PRN MUSCLE SPASMS Naloxone HCl 0.4 mg 03/10/20 10:50 Narcan - IM PRN PRN RESPIRATORY DEPRESSION Nicotine 21 mg 03/10/20 10:00 03/11/20 10:05 Nicoderm Patch - TD 21 mg DAILY DARYL Administration Nicotine Polacrilex 2 mg 03/09/20 17:34 03/09/20 19:08 Nicorette Gum - BUC 2 mg Q2H PRN Administration NICOTINE REPLACEMENT RX Multivit/Folic Acid/Iron 1 tab 03/10/20 10:00 03/11/20 10:07 Vitamins (Sjr) - PO 1 tab DAILY DARYL Administration Quetiapine Fumarate 100 mg 03/10/20 22:00 03/10/20 22:21 Seroquel - PO 100 mg HS DARYL Administration Thiamine HCl 100 mg 03/09/20 22:00 03/10/20 22:20 Vitamin B1 - PO 100 mg HS DARYL Administration Medication(s) Change(s): Medications revisited. Discussed, in detail, with the patient. Seroquel is optimized to 200 mg po hs (from 100 mg/hs) and elavil raised to 75 mg po hs (patient used to be prescribed 100 mg/hs by a community provider). Side effects/benefits of these medications are reviewed in this session. Patient is able to negotiate with MD and she consents to follow this plan of care. Informed consent (verbal) granted to MD. Current Side Effect: No Lab tests ordered: No Lab tests reviewed: Yes Provider note:: Case discussed in morning multidisciplinary rounds. Chart reviewed. Met with the patient in the presence of nurse Padmini Chakraborty. Ms Calabrese is upset upon learning that her 10 y/o daughter has tested positive for COVID-19. Patient expresses considerable concern and apprehension. She feels anxious and ambivalent about continuing detoxification treatment. " I am torn between two choices. I want to be with my daughter on one hand and I also feel that I have to complete my treatment on the other hand. I don't want to leave the program. It gives me a lot of anxiety." Patient is also complaining of insomnia and she requests that the amitryptiline dose be raised to the usual 100 mg at bedtime. She insists on more seroquel as well. Complaints and concerns are validated. Patient is made aware that her apprehension is justified by this turn of events (daughter's covid status + current admission of patient's to [facility] rehabilitation unit). Ms Calabrese expresses concern about jeopardizing her 's recovery by stopping her detoxification. " I know that he will stop his rehab if I leave. That will not be fair to him." She also reasons that " leaving will not allow me to be any good to my child because, now that she is covid-positive, she is in quarantine." Briefing on covid-19 is provided to patient (by this narrative writer). Reassurance given. Patient responded positively to teaching. She has also consented to doses adjustments brought to her medications (she participated actively in the process). She is reminded of rules/regulations governing telephone communications between patients admitted to different units at [facility]. Patient understood. Ms Calabrese is cooperative, well-controlled, conversant, neatly groomed, friendly on approach and appropriate. Detoxification is progressing safely. Patient is clearly improved in terms of general functtioning, quality of affect, energy level, motivation and impulse control. Mental status is stable. See MSE report for details. Patient offers a good response to this crisis intervention. She comments that she has come to terms with the situation and chosen a reasonable course of action (to complete her treatment protocol). No indication for further psychiatric intervention. Total face to face time:: 45 Mental Status Exam - Mental Status Exam Alert and Oriented to: Time, Place, Person Cognitive Function: Good Patient Appearance: Well Groomed Mood: Hopeful Affect: Appropriate, Normal Range Patient Behavior: Appropriate, Cooperative Speech Pattern: Clear, Appropriate Voice Loudness: Normal Thought Process: Intact, Goal Oriented Thought Disorder: Not Present Hallucinations: Denies Suicidal Ideation: Denies Insight/Judgement: Fair Sleep: Poorly, Difficulty falling asleep Appetite: Good Gait/Station: Normal Psychiatric Treatment Plan - Problem List (1) Alcohol dependence with withdrawal, uncomplicated Comment: . (2) Opioid use disorder Comment: . (3) Cocaine abuse, episodic use Comment: . (4) Nicotine dependence Qualifiers: Nicotine product type: cigarettes Substance use status: in withdrawal Qualified Code(s): F17.213 - Nicotine dependence, cigarettes, with withdrawal Comment: . (5) Substance induced mood disorder Comment: . (6) History of bipolar disorder Comment: . (7) PTSD (post-traumatic stress disorder) Comment: . (8) Insomnia Comment: . (9) Non-compliance Comment: .
--- NOTE | 2020-03-11 13:24 | DS ---
[facility] Detox Discharge Summary Admission Date: 03/09/20 Discharge Date: 03/11/20 - History Present History: Alcohol Dependence, Opioid Dependence Additional Comments: 29 years old female admitted on 03/09/20 for alcohol and opiate withdrawal sx management treated with ativan and methadone detox regiments ms coronel insists to leave the detox unit today that is waiting down stair to take her home for their daughter who is covid positive the location of the daughter is unknown seen by psychiatrist today continue seroquel and amitrypline alert oriented x 3 speech clearly coherently ambulating steady gaits respiratory clear lung sounds bilaterally on auscultation abdomen soft no rebound tenderness extremities full range of motion Pertinent Past History: time for discharge 48 minutes ms coronel hesitates aftercare discussing with the staff however medication assisted treatment [facility] ms coronel considers returning to subutex program strong recommend the patient picking up narcan from pharmacy team met with the patient against medical advice is appropriated due to alcohol and opiate withdrawal sx presentation with little interesting in aftercare program "I am going to the meeting" - Physical Exam Results Vital Signs: Vital Signs Temperature 97.8 F 03/11/20 08:40 Pulse Rate 72 03/11/20 08:40 Respiratory Rate 18 03/11/20 08:40 Blood Pressure 107/66 03/11/20 08:40 O2 Sat by Pulse Oximetry (%) 97 03/11/20 06:17 Pertinent Admission Physical Exam Findings: alcohol and opiate withdrawal Laboratory Tests 03/09/20 03/10/20 03/10/20 17:18 08:15 08:15 WBC 8.3 RBC 4.54 Hgb 13.0 Hct 39.4 MCV 86.8 MCH 28.7 MCHC 33.0 RDW 13.3 Plt Count 308 MPV 10.4 Sodium Potassium Chloride Carbon Dioxide Anion Gap BUN Creatinine Est GFR (CKD-EPI)AfAm Est GFR (CKD-EPI)NonAf Random Glucose Calcium Total Bilirubin AST ALT Alkaline Phosphatase Total Protein Albumin Urine Color Urine Appearance Urine pH Ur Specific [place] Urine Protein Urine Glucose (UA) Urine Ketones Urine Blood Urine Nitrite Urine Bilirubin Urine Urobilinogen Ur Leukocyte Esterase POC Urine HCG, Qual Negative Syphilis Serology Non-reactive 03/10/20 03/10/20 08:15 13:40 WBC RBC Hgb Hct MCV MCH MCHC RDW Plt Count MPV Sodium 141 Potassium 3.9 Chloride 106 Carbon Dioxide 26 Anion Gap 8 BUN 10.6 Creatinine 0.7 Est GFR (CKD-EPI)AfAm 134.75 Est GFR (CKD-EPI)NonAf 116.26 Random Glucose 91 Calcium 9.2 Total Bilirubin 0.5 AST 7 L ALT 19 Alkaline Phosphatase 73 Total Protein 6.6 Albumin 3.7 Urine Color Yellow Urine Appearance Clear Urine pH 8.0 Ur Specific [place] 1.015 Urine Protein Negative Urine Glucose (UA) Negative Urine Ketones Negative Urine Blood Negative Urine Nitrite Negative Urine Bilirubin Negative Urine Urobilinogen 0.2 Ur Leukocyte Esterase Negative POC Urine HCG, Qual Syphilis Serology lab noted - Treatment Hospital Course: Detox Protocol Followed, Detoxed Safely, Responded well, Rehab Referral Accepted Patient has Accepted a Rehab Referral to: [facility] - Medication Discharge Medications: Ambulatory Orders Buprenorphine HCl [Subutex -] 8 mg SL TID 03/09/20 Fluoxetine HCl [Prozac -] 80 mg PO DAILY 03/09/20 Quetiapine Fumarate [Seroquel -] 300 mg PO HS 03/09/20 Zolpidem Tartrate [Ambien] 10 mg PO HS 03/09/20 Naloxone HCl [Narcan] 4 mg NS ASDIR PRN #1 spray 03/11/20 - Diagnosis (1) Alcohol dependence with withdrawal, uncomplicated Status: Acute (2) Opioid use disorder Status: Acute (3) Nicotine dependence Status: Acute Qualifiers: Nicotine product type: cigarettes Substance use status: in withdrawal Qualified Code(s): F17.213 - Nicotine dependence, cigarettes, with withdrawal (4) Substance induced mood disorder Status: Suspected - AMA Did Patient Leave Against Medical Advice: Yes CIWA Score - CIWA Score Nausea/Vomitin-No Nausea/No Vomiting Muscle Tremors: 2 Anxiety: 2 Agitation: 2 Paroxysmal Sweats: 1-Minimal Palms Moist Orientation: 0-Oriented Tacttile Disturbances: 1-Very Mild Itch/Numbness Auditory Disturbances: 0-None Visual Disturbances: 1-Very Mild Sensitivity Headache: 0-None Present CIWA-Ar Total Score: 9 COWS (PN) - Opiate Withdrawal Resting Pulse: 0= [place] 80 or Below Sweatin= Chills/Flushing Restless Observation: 0= Sits Still Pupil Size: 1= Pupils >than Normal Bone or Joint Aches: 0= None Runny Nose/ Eye Tearin= None GI Upset > 30mins: 1= Stomach Cramp Tremor Observation of Outstretched Hands: 2= Slight Tremor Visible Yawning Observation: 0= None Anxiety or Irritability: 4=Extreme Anxiety Goose Flesh Skin: 0=Smooth Skin COWS Score: 9
[2020-03-11] MEDS ORDERED: QUEtiapine FUMARATE 200 MG TABLET PO SCH (22:00)
[2020-03-11] MEDS ORDERED: AMITRIPTYLINE HCL 25 MG TABLET PO SCH (22:00)
[2020-03-12] MEDS ORDERED: LORazepam 0.5 MG TABLET PO PRN
[2020-03-12] MEDS ORDERED: LORazepam 0.5 MG TABLET PO SCH (05:00)
[2020-03-12] MEDS ORDERED: METHADONE HCL 10 MG TABLET (FOR DETOX USE ONLY) PO ONE (10:00)
[2020-03-13] MEDS ORDERED: METHADONE HCL 5 MG TABLET (FOR DETOX USE ONLY) PO ONE (06:00)
== END 2020-03-11 13:02 | disposition left against medical advice (07) | DRG 770 ==
LOC: YASAS 14:45 → Y3N 17:29
PROVIDERS: ADMIT Allergy & Immunology; ATTEND Allergy & Immunology
PROC: HZ2ZZZZ Detoxification Services for Substance Abuse Treatment (ICD-10-PCS; principal; 2020-03-09)
DX: F10.230 Alcohol dependence with withdrawal, uncomplicated (principal); F11.23 Opioid dependence with withdrawal; F13.20 Sedative, hypnotic or anxiolytic dependence, uncomplicated; F14.10 Cocaine abuse, uncomplicated; F17.210 Nicotine dependence, cigarettes, uncomplicated; F19.24 Other psychoactive substance dependence with psychoactive substance-induced mood disorder; F31.9 Bipolar disorder, unspecified; F43.10 Post-traumatic stress disorder, unspecified; G47.00 Insomnia, unspecified; M54.5 Low back pain; G89.29 Other chronic pain; Z56.0 Unemployment, unspecified; Z86.69 Personal history of other diseases of the nervous system and sense organs; Z90.49 Acquired absence of other specified parts of digestive tract; Z91.19 Patient's noncompliance with other medical treatment and regimen; Z91.018 Allergy to other foods
CPT/HCPCS: 36415; 80053; 81003; 81025; 85027; 86780; J0735; Q0162; U0003

== ENCOUNTER 2020-08-22 11:10 | Inpatient (IN) | payer OTHER ==
[2020-08-22 12:56] VITALS: BMI 25.3
[2020-08-22] MEDS ORDERED: chlordiazePOXIDE HCL 25 MG CAPSULE PO SCH (17:00)
[2020-08-22] MEDS ORDERED: ACETAMINOPHEN 325 MG TABLET (FP) PO PRN ×2 (17:07)
[2020-08-22] MEDS ORDERED: IBUPROFEN 400 MG TABLET (FP) PO PRN (17:07)
[2020-08-22] MEDS ORDERED: MAGNESIUM HYDROX 2400MG/30ML ORAL SUSPENSION 30 ML CUP PO PRN (17:07)
[2020-08-22] MEDS ORDERED: ONDANSETRON *ODT* 4 MG TABLET SL PRN (17:07)
[2020-08-22] MEDS ORDERED: MAG HYDROX/AL HYDROX/SIMETH 30 ML UNIT-DOSE CUP PO PRN (17:07)
[2020-08-22] MEDS ORDERED: BISMUTH SUBSALICYLATE 524 MG/30 ML UD PO PRN (17:07)
[2020-08-22] MEDS ORDERED: NICOTINE POLACRILEX 2 MG GUM BUC PRN (17:07)
[2020-08-22] MEDS ORDERED: MAGNESIUM CITRATE 300 ML BOTTLE PO PRN (17:07)
[2020-08-22] MEDS ORDERED: MELATONIN 5 MG TABLETS PO PRN (17:07)
[2020-08-22] MEDS ORDERED: MENTHOL/PHENOL 1 EACH UD MM PRN (17:07)
[2020-08-22] MEDS ORDERED: METHADONE HCL 10 MG TABLET (FOR DETOX USE ONLY) PO ONE (17:09)
[2020-08-22] MEDS ORDERED: chlordiazePOXIDE HCL 25 MG CAPSULE PO PRN (17:09)
[2020-08-22] MEDS ORDERED: cloNIDine HCL 0.1 MG TABLET PO PRN (17:09)
[2020-08-22] MEDS ORDERED: METHADONE HCL 10 MG TABLET (FOR DETOX USE ONLY) ONE (20:37)
[2020-08-22] MEDS ORDERED: LORazepam 1 MG TABLET ONE (20:55)
[2020-08-22] MEDS: LORazepam 1 MG TABLET PO PRN (20:59)
[2020-08-22] MEDS: hydrOXYzine PAMOATE 25 MG CAPSULE (FP) PO PRN (22:46)
[2020-08-22] MEDS: LORazepam 2 MG TABLET PO SCH (22:46)
[2020-08-22] MEDS: THIAMINE HCL 100 MG TABLET (FP) PO SCH (22:46)
[2020-08-22] MEDS: METHOCARBAMOL 500 MG TABLET PO PRN (22:46)
[2020-08-23] MEDS: LORazepam 2 MG TABLET PO SCH ×4 (05:21→21:59)
[2020-08-23] MEDS ORDERED: METHADONE HCL 10 MG TABLET (FOR DETOX USE ONLY) ONE (09:15)
[2020-08-23] MEDS ORDERED: METHADONE HCL 5 MG TABLET (FOR DETOX USE ONLY) ONE (09:15)
[2020-08-23 09:20] LABS: HEMATOCRIT 39.3 % (32.4-45.2); MCH 28.5 pg (25.7-33.7); MCHC 32.9 g/dl (32.0-36.0); MEAN CELL VOLUME 86.5 fl (80-96); MEAN PLT VOLUME 10.2 fl (7.5-11.1); PLATELET COUNT 286 K/MM3 (134-434); POTASSIUM 3.6 mmol/L (3.5-5.1); RBC 4.55 M/mm3 (3.60-5.2); RDW 13.2 % (11.6-15.6); WHITE BLOOD COUNT 7.3 K/mm3 (4.0-10.0)
[2020-08-23 09:26] LABS: ALBUMIN 3.8 g/dl (3.4-5.0); CALCIUM 9.1 mg/dL (8.5-10.1)
[2020-08-23 09:27] LABS: BLOOD UREA NITROGEN 9.4 mg/dL (7-18)
[2020-08-23 09:30] LABS: CREATININE 0.9 mg/dL (0.55-1.3)
[2020-08-23 09:31] LABS: BILIRUBIN,TOTAL 1.1 mg/dL (0.2-1); TOT PROT 6.8 g/dl (6.4-8.2)
[2020-08-23] MEDS ORDERED: METHADONE (DETOX) 20 MG, METHADONE (DETOX) 5 MG PO ONE (10:00)
[2020-08-23] MEDS: PRENATAL VITAMINS W/ FOLIC ACID TABLET (FP) PO SCH (10:20)
[2020-08-23] MEDS: hydrOXYzine PAMOATE 25 MG CAPSULE (FP) PO PRN (10:21)
[2020-08-23] MEDS: FLUoxetine HCL 20 MG CAPSULE PO SCH (10:21)
[2020-08-23] MEDS ORDERED: NICOTINE POLACRILEX 2 MG GUM BUC PRN (10:27)
[2020-08-23] MEDS: NICOTINE 21 MG/24 HOURS TOPICAL PATCH TD SCH (10:35)
[2020-08-23] MEDS: LORazepam 1 MG TABLET PO PRN (13:58)
[2020-08-23] MEDS: THIAMINE HCL 100 MG TABLET (FP) PO SCH (21:55)
[2020-08-23] MEDS: QUEtiapine FUMARATE 200 MG TABLET PO SCH (21:55)
[2020-08-23] MEDS: METHOCARBAMOL 500 MG TABLET PO PRN (21:56)
[2020-08-23] MEDS ORDERED: traZODone HCL 100 MG TABLET (FP) PO SCH (22:00)
[2020-08-23] MEDS ORDERED: AMITRIPTYLINE HCL 100 MG TABLET PO SCH (22:00)
[2020-08-23] MEDS ORDERED: AMITRIPTYLINE HCL PO SCH (22:45)
[2020-08-23] MEDS ORDERED: AMITRIPTYLINE HCL 25 MG TABLET PO SCH (22:45)
[2020-08-24] MEDS: hydrOXYzine PAMOATE 25 MG CAPSULE (FP) PO PRN (02:30)
[2020-08-24] MEDS ORDERED: chlordiazePOXIDE HCL 25 MG CAPSULE PO SCH (05:00)
[2020-08-24] MEDS: LORazepam 1 MG TABLET PO SCH ×4 (05:50→22:05)
[2020-08-24] MEDS ORDERED: METHADONE HCL 10 MG TABLET (FOR DETOX USE ONLY) PO ONE (10:00)
[2020-08-24] MEDS: FLUoxetine HCL 20 MG CAPSULE PO SCH (10:01)
[2020-08-24] MEDS: NICOTINE 21 MG/24 HOURS TOPICAL PATCH TD SCH (10:02)
[2020-08-24] MEDS: PRENATAL VITAMINS W/ FOLIC ACID TABLET (FP) PO SCH (10:02)
[2020-08-24] MEDS ORDERED: hydrOXYzine PAMOATE 50 MG CAPSULE (FP) PO ONE (12:31)
[2020-08-24] MEDS: LORazepam 1 MG TABLET PO PRN (14:22)
[2020-08-24] MEDS ORDERED: AMITRIPTYLINE HCL 100 MG TABLET PO SCH (22:00)
[2020-08-24] MEDS: THIAMINE HCL 100 MG TABLET (FP) PO SCH (22:05)
[2020-08-24] MEDS: QUEtiapine FUMARATE 200 MG TABLET PO SCH (22:05)
[2020-08-24] MEDS: METHOCARBAMOL 500 MG TABLET PO PRN (22:06)
[2020-08-25] MEDS ORDERED: LORazepam 0.5 MG TABLET PO PRN
[2020-08-25] MEDS ORDERED: chlordiazePOXIDE HCL 10 MG CAPSULE PO PRN
[2020-08-25] MEDS: hydrOXYzine PAMOATE 25 MG CAPSULE (FP) PO PRN ×2 (01:32→12:39)
[2020-08-25] MEDS ORDERED: chlordiazePOXIDE HCL 10 MG CAPSULE PO SCH (05:00)
[2020-08-25] MEDS: LORazepam 0.5 MG TABLET PO SCH ×4 (05:42→22:06)
[2020-08-25] MEDS ORDERED: METHADONE HCL 5 MG TABLET (FOR DETOX USE ONLY) ONE (08:19)
[2020-08-25] MEDS ORDERED: METHADONE HCL 10 MG TABLET (FOR DETOX USE ONLY) ONE (08:19)
[2020-08-25] MEDS ORDERED: METHADONE (DETOX) 10 MG, METHADONE (DETOX) 5 MG PO ONE (10:00)
[2020-08-25] MEDS: FLUoxetine HCL 20 MG CAPSULE PO SCH (10:10)
[2020-08-25] MEDS: PRENATAL VITAMINS W/ FOLIC ACID TABLET (FP) PO SCH (10:11)
[2020-08-25] MEDS: NICOTINE 21 MG/24 HOURS TOPICAL PATCH TD SCH (10:13)
[2020-08-25] MEDS ORDERED: MELATONIN 5 MG TABLETS PO PRN (11:53)
[2020-08-25] MEDS ORDERED: AMITRIPTYLINE HCL 25 MG TABLET PO SCH (21:15)
[2020-08-25] MEDS: THIAMINE HCL 100 MG TABLET (FP) PO SCH (22:05)
[2020-08-25] MEDS: QUEtiapine FUMARATE 200 MG TABLET PO SCH (22:05)
[2020-08-26] MEDS ORDERED: chlordiazePOXIDE HCL 10 MG CAPSULE PO SCH (05:00)
[2020-08-26] MEDS ORDERED: LORazepam 0.5 MG TABLET PO ONE (05:00)
[2020-08-26 09:03] VITALS: BP 109/72; PULSE 72; TEMP 98.4
[2020-08-26] MEDS: NICOTINE 21 MG/24 HOURS TOPICAL PATCH TD SCH (09:14)
[2020-08-26] MEDS: PRENATAL VITAMINS W/ FOLIC ACID TABLET (FP) PO SCH (09:14)
[2020-08-26] MEDS: FLUoxetine HCL 20 MG CAPSULE PO SCH (09:15)
[2020-08-26] MEDS ORDERED: METHADONE HCL 5 MG TABLET (FOR DETOX USE ONLY) PO ONE (10:00)
[2020-08-26] MEDS ORDERED: METHADONE HCL 10 MG TABLET (FOR DETOX USE ONLY) PO ONE (10:00)
[2020-08-27] MEDS ORDERED: chlordiazePOXIDE HCL 10 MG CAPSULE PO ONE (05:00)
[2020-08-27] MEDS ORDERED: METHADONE HCL 5 MG TABLET (FOR DETOX USE ONLY) PO ONE (06:00)
== END 2020-08-26 09:36 | disposition home or self-care (01) | DRG 773 ==
LOC: YASAS 11:10 → Y3N 22:08
PROVIDERS: ADMIT Allergy & Immunology; ATTEND Allergy & Immunology
PROC: HZ2ZZZZ Detoxification Services for Substance Abuse Treatment (ICD-10-PCS; principal; 2020-08-22)
DX: F11.23 Opioid dependence with withdrawal (principal); F14.10 Cocaine abuse, uncomplicated; F17.213 Nicotine dependence, cigarettes, with withdrawal; F19.24 Other psychoactive substance dependence with psychoactive substance-induced mood disorder; F19.280 Other psychoactive substance dependence with psychoactive substance-induced anxiety disorder; F19.282 Other psychoactive substance dependence with psychoactive substance-induced sleep disorder; F31.9 Bipolar disorder, unspecified; R73.09 Other abnormal glucose; M54.5 Low back pain; G89.29 Other chronic pain; R00.0 Tachycardia, unspecified; Z86.69 Personal history of other diseases of the nervous system and sense organs
CPT/HCPCS: 36415; 80053; 81025; 82962; 85027; 86780; 93005; 93010; C9803; U0003

== ENCOUNTER 2020-10-11 09:24 | Inpatient (IN) | payer OTHER ==
[2020-10-11 09:54] VITALS: BMI 22.2
[2020-10-11] MEDS ORDERED: cloNIDine HCL 0.1 MG TABLET PO PRN (11:46)
[2020-10-11] MEDS ORDERED: METHOCARBAMOL 500 MG TABLET PO PRN (11:46)
[2020-10-11] MEDS ORDERED: NICOTINE POLACRILEX 2 MG GUM BUC PRN (11:46)
[2020-10-11] MEDS ORDERED: IBUPROFEN 400 MG TABLET (FP) PO PRN (11:46)
[2020-10-11] MEDS ORDERED: diazePAM 5 MG TABLET PO PRN (11:46)
[2020-10-11] MEDS ORDERED: ONDANSETRON *ODT* 4 MG TABLET SL PRN (11:46)
[2020-10-11] MEDS ORDERED: BISMUTH SUBSALICYLATE 524 MG/30 ML UD PO PRN (11:46)
[2020-10-11] MEDS ORDERED: ACETAMINOPHEN 325 MG TABLET (FP) PO PRN ×2 (11:46)
[2020-10-11] MEDS ORDERED: MAGNESIUM CITRATE 300 ML BOTTLE PO PRN (11:46)
[2020-10-11] MEDS ORDERED: MAG HYDROX/AL HYDROX/SIMETH 30 ML UNIT-DOSE CUP PO PRN (11:46)
[2020-10-11] MEDS ORDERED: MAGNESIUM HYDROX 2400MG/30ML ORAL SUSPENSION 30 ML CUP PO PRN (11:46)
[2020-10-11] MEDS ORDERED: MENTHOL/PHENOL 1 EACH UD MM PRN (11:46)
[2020-10-11] MEDS ORDERED: METHADONE HCL 10 MG TABLET (FOR DETOX USE ONLY) PO ONE (11:46)
[2020-10-11] MEDS ORDERED: NICOTINE 21 MG/24 HOURS TOPICAL PATCH TD SCH (12:00)
[2020-10-11] MEDS: hydrOXYzine PAMOATE 25 MG CAPSULE (FP) PO SCH ×2 (13:01→18:34)
[2020-10-11] MEDS ORDERED: diazePAM 5 MG TABLET PO SCH (17:00)
[2020-10-11 18:57] VITALS: TEMP 97.8
[2020-10-11 18:59] VITALS: BP 135/78; PULSE 90
[2020-10-11] MEDS ORDERED: AMITRIPTYLINE HCL 25 MG TABLET PO SCH (22:00)
[2020-10-11] MEDS ORDERED: MELATONIN 5 MG TABLETS PO SCH (22:00)
[2020-10-11] MEDS ORDERED: QUEtiapine FUMARATE 200 MG TABLET PO SCH (22:00)
[2020-10-11] MEDS ORDERED: THIAMINE HCL 100 MG TABLET (FP) PO SCH (22:00)
[2020-10-12] MEDS ORDERED: PRENATAL VITAMINS W/ FOLIC ACID TABLET (FP) PO SCH (10:00)
[2020-10-12] MEDS ORDERED: METHADONE (DETOX) 20 MG, METHADONE (DETOX) 5 MG PO ONE (10:00)
[2020-10-13] MEDS ORDERED: diazePAM 5 MG TABLET PO SCH (06:00)
[2020-10-13] MEDS ORDERED: METHADONE HCL 10 MG TABLET (FOR DETOX USE ONLY) PO ONE (10:00)
[2020-10-14] MEDS ORDERED: diazePAM 5 MG TABLET PO SCH (06:00)
[2020-10-14] MEDS ORDERED: METHADONE (DETOX) 10 MG, METHADONE (DETOX) 5 MG PO ONE (10:00)
[2020-10-15] MEDS ORDERED: diazePAM 5 MG TABLET PO ONE (06:00)
[2020-10-15] MEDS ORDERED: METHADONE HCL 10 MG TABLET (FOR DETOX USE ONLY) PO ONE (10:00)
[2020-10-16] MEDS ORDERED: METHADONE HCL 5 MG TABLET (FOR DETOX USE ONLY) PO ONE (06:00)
== END 2020-10-11 19:19 | disposition left against medical advice (07) | DRG 770 ==
LOC: YASAS 09:24 → Y6N 12:04
PROVIDERS: ADMIT Allergy & Immunology; ATTEND Allergy & Immunology
PROC: HZ2ZZZZ Detoxification Services for Substance Abuse Treatment (ICD-10-PCS; principal; 2020-10-11)
DX: F11.23 Opioid dependence with withdrawal (principal); F10.230 Alcohol dependence with withdrawal, uncomplicated; F13.10 Sedative, hypnotic or anxiolytic abuse, uncomplicated; F17.210 Nicotine dependence, cigarettes, uncomplicated; F19.282 Other psychoactive substance dependence with psychoactive substance-induced sleep disorder; F31.81 Bipolar II disorder; F43.10 Post-traumatic stress disorder, unspecified; M54.89 Other dorsalgia; Z86.69 Personal history of other diseases of the nervous system and sense organs; Z90.49 Acquired absence of other specified parts of digestive tract; Z91.013 Allergy to seafood; Z91.018 Allergy to other foods
CPT/HCPCS: C9803; U0003

== ENCOUNTER 2020-10-28 17:37 | Inpatient (IN) | payer OTHER ==
[2020-10-28 19:24] VITALS: BMI 29.7
[2020-10-29] MEDS ORDERED: ONDANSETRON *ODT* 4 MG TABLET SL PRN (01:24)
[2020-10-29] MEDS ORDERED: MAGNESIUM HYDROX 2400MG/30ML ORAL SUSPENSION 30 ML CUP PO PRN (01:24)
[2020-10-29] MEDS ORDERED: MENTHOL/PHENOL 1 EACH UD MM PRN (01:24)
[2020-10-29] MEDS ORDERED: MAGNESIUM CITRATE 300 ML BOTTLE PO PRN (01:24)
[2020-10-29] MEDS ORDERED: BISMUTH SUBSALICYLATE 524 MG/30 ML UD PO PRN (01:24)
[2020-10-29] MEDS ORDERED: IBUPROFEN 400 MG TABLET (FP) PO PRN (01:24)
[2020-10-29] MEDS ORDERED: METHADONE HCL 10 MG TABLET (FOR DETOX USE ONLY) PO ONE ×2 (01:24→18:39)
[2020-10-29] MEDS ORDERED: MAG HYDROX/AL HYDROX/SIMETH 30 ML UNIT-DOSE CUP PO PRN (01:24)
[2020-10-29] MEDS ORDERED: ACETAMINOPHEN 325 MG TABLET (FP) PO PRN ×2 (01:24)
[2020-10-29] MEDS ORDERED: NICOTINE POLACRILEX 2 MG GUM BUC PRN (01:24)
[2020-10-29] MEDS ORDERED: METHOCARBAMOL 500 MG TABLET ONE (02:07)
[2020-10-29] MEDS ORDERED: METHADONE HCL 10 MG TABLET (FOR DETOX USE ONLY) ONE (02:07)
[2020-10-29] MEDS: METHOCARBAMOL 500 MG TABLET PO PRN ×2 (02:08→11:01)
[2020-10-29] MEDS: hydrOXYzine PAMOATE 25 MG CAPSULE (FP) PO PRN ×3 (09:15→22:00)
[2020-10-29] MEDS ORDERED: hydrOXYzine PAMOATE 25 MG CAPSULE (FP) PO ONE ×2 (09:38→09:48)
[2020-10-29] MEDS: cloNIDine HCL 0.1 MG TABLET PO PRN (11:01)
[2020-10-29] MEDS: NICOTINE 21 MG/24 HOURS TOPICAL PATCH TD SCH (11:01)
[2020-10-29] MEDS: PRENATAL VITAMINS W/ FOLIC ACID TABLET (FP) PO SCH (11:02)
[2020-10-29] MEDS: diazePAM 5 MG TABLET PO PRN ×4 (11:28→23:40)
[2020-10-29 15:43] LABS: ALBUMIN 4.1 g/dl (3.4-5.0); BLOOD UREA NITROGEN 17.2 mg/dL (7-18); CALCIUM 9.3 mg/dL (8.5-10.1)
[2020-10-29 15:45] LABS: HEMATOCRIT 38.7 % (32.4-45.2); HEMOGLOBIN 13.2 GM/dL (10.7-15.3); MCH 28.6 pg (25.7-33.7); MCHC 34.1 g/dl (32.0-36.0); MEAN CELL VOLUME 84.1 fl (80-96); MEAN PLT VOLUME 9.7 fl (7.5-11.1); PLATELET COUNT 417 K/MM3 (134-434); RBC 4.61 M/mm3 (3.60-5.2); RDW 13.5 % (11.6-15.6); WHITE BLOOD COUNT 7.5 K/mm3 (4.0-10.0)
[2020-10-29 15:46] LABS: CREATININE 0.6 mg/dL (0.55-1.3)
[2020-10-29 15:48] LABS: BILIRUBIN,TOTAL 0.6 mg/dL (0.2-1); TOT PROT 7.6 g/dl (6.4-8.2)
[2020-10-29 16:27] LABS: HIV INTERPRETATION NEGATIVE (NEGATIVE)
[2020-10-29] MEDS ORDERED: MASKS NR ONE (18:16)
[2020-10-29] MEDS: THIAMINE HCL 100 MG TABLET (FP) PO SCH (22:00)
[2020-10-29] MEDS: QUEtiapine FUMARATE 200 MG TABLET PO SCH (22:00)
[2020-10-29] MEDS ORDERED: AMITRIPTYLINE HCL 25 MG TABLET PO SCH (22:00)
[2020-10-29] MEDS: MELATONIN 5 MG TABLETS PO SCH (22:00)
[2020-10-30] MEDS: METHOCARBAMOL 500 MG TABLET PO PRN ×2 (00:36→09:54)
[2020-10-30] MEDS: cloNIDine HCL 0.1 MG TABLET PO PRN (00:36)
[2020-10-30] MEDS: diazePAM 5 MG TABLET PO PRN ×4 (08:51→22:06)
[2020-10-30] MEDS ORDERED: MASKS NR ONE (09:13)
[2020-10-30] MEDS ORDERED: METHADONE HCL 5 MG TABLET (FOR DETOX USE ONLY) ONE (09:28)
[2020-10-30] MEDS ORDERED: METHADONE HCL 10 MG TABLET (FOR DETOX USE ONLY) ONE (09:28)
[2020-10-30] MEDS: NICOTINE 21 MG/24 HOURS TOPICAL PATCH TD SCH (09:54)
[2020-10-30] MEDS: PRENATAL VITAMINS W/ FOLIC ACID TABLET (FP) PO SCH (09:54)
[2020-10-30] MEDS: hydrOXYzine PAMOATE 25 MG CAPSULE (FP) PO PRN (09:54)
[2020-10-30] MEDS ORDERED: METHADONE (DETOX) 20 MG, METHADONE (DETOX) 5 MG PO ONE (10:00)
[2020-10-30] MEDS: MELATONIN 5 MG TABLETS PO SCH (22:04)
[2020-10-30] MEDS: THIAMINE HCL 100 MG TABLET (FP) PO SCH (22:05)
[2020-10-30] MEDS: QUEtiapine FUMARATE 200 MG TABLET PO SCH (22:05)
[2020-10-30] MEDS: AMITRIPTYLINE HCL 100 MG TABLET PO SCH (23:46)
[2020-10-31] MEDS: diazePAM 5 MG TABLET PO PRN ×4 (04:16→22:28)
[2020-10-31] MEDS ORDERED: METHADONE HCL 10 MG TABLET (FOR DETOX USE ONLY) PO ONE (10:00)
[2020-10-31] MEDS: NICOTINE 21 MG/24 HOURS TOPICAL PATCH TD SCH (10:09)
[2020-10-31] MEDS: PRENATAL VITAMINS W/ FOLIC ACID TABLET (FP) PO SCH (10:10)
[2020-10-31] MEDS: THIAMINE HCL 100 MG TABLET (FP) PO SCH (22:28)
[2020-10-31] MEDS: QUEtiapine FUMARATE 200 MG TABLET PO SCH (22:28)
[2020-10-31] MEDS: MELATONIN 5 MG TABLETS PO SCH (22:28)
[2020-10-31] MEDS: AMITRIPTYLINE HCL 100 MG TABLET PO SCH (22:28)
[2020-11-01] MEDS ORDERED: METHADONE HCL 10 MG TABLET (FOR DETOX USE ONLY) ONE (08:55)
[2020-11-01] MEDS ORDERED: METHADONE HCL 5 MG TABLET (FOR DETOX USE ONLY) ONE (08:55)
[2020-11-01] MEDS: diazePAM 5 MG TABLET PO PRN (09:13)
[2020-11-01] MEDS: PRENATAL VITAMINS W/ FOLIC ACID TABLET (FP) PO SCH (09:14)
[2020-11-01] MEDS: NICOTINE 21 MG/24 HOURS TOPICAL PATCH TD SCH (09:14)
[2020-11-01] MEDS ORDERED: METHADONE (DETOX) 10 MG, METHADONE (DETOX) 5 MG PO ONE (10:00)
[2020-11-01] MEDS: MELATONIN 5 MG TABLETS PO SCH (21:59)
[2020-11-01] MEDS: AMITRIPTYLINE HCL 100 MG TABLET PO SCH (21:59)
[2020-11-01] MEDS: QUEtiapine FUMARATE 200 MG TABLET PO SCH (21:59)
[2020-11-01] MEDS: THIAMINE HCL 100 MG TABLET (FP) PO SCH (21:59)
[2020-11-02 07:56] VITALS: BP 103/64; PULSE 64; TEMP 97.9
[2020-11-02] MEDS: PRENATAL VITAMINS W/ FOLIC ACID TABLET (FP) PO SCH (09:04)
[2020-11-02] MEDS: NICOTINE 21 MG/24 HOURS TOPICAL PATCH TD SCH (09:05)
[2020-11-02] MEDS ORDERED: METHADONE HCL 10 MG TABLET (FOR DETOX USE ONLY) PO ONE (10:00)
[2020-11-03] MEDS ORDERED: METHADONE HCL 5 MG TABLET (FOR DETOX USE ONLY) PO ONE (06:00)
== END 2020-11-02 09:09 | disposition home or self-care (01) | DRG 773 ==
LOC: YASAS 17:37 → Y3N 10-29 09:54
PROVIDERS: ADMIT Allergy & Immunology; ATTEND Allergy & Immunology
PROC: HZ2ZZZZ Detoxification Services for Substance Abuse Treatment (ICD-10-PCS; principal; 2020-10-29)
DX: F11.23 Opioid dependence with withdrawal (principal); F17.210 Nicotine dependence, cigarettes, uncomplicated; F19.282 Other psychoactive substance dependence with psychoactive substance-induced sleep disorder; F31.9 Bipolar disorder, unspecified; F41.8 Other specified anxiety disorders; F43.10 Post-traumatic stress disorder, unspecified; K29.70 Gastritis, unspecified, without bleeding; M54.5 Low back pain; G89.29 Other chronic pain; R56.9 Unspecified convulsions; Z91.013 Allergy to seafood; Z91.018 Allergy to other foods; Z91.410 Personal history of adult physical and sexual abuse; Z56.0 Unemployment, unspecified; Z59.0 Homelessness
CPT/HCPCS: 36415; 80053; 85027; 86780; 87389; 93005; 93010; C9803; J0735; U0003

== ENCOUNTER 2021-01-16 14:48 | Inpatient (IN) | payer MEDICARE, OTHER ==
[2021-01-16 15:52] VITALS: BMI 28.6
[2021-01-16] MEDS ORDERED: MENTHOL/PHENOL 1 EACH UD MM PRN (18:34)
[2021-01-16] MEDS ORDERED: ONDANSETRON *ODT* 4 MG TABLET SL PRN (18:34)
[2021-01-16] MEDS ORDERED: METHADONE HCL 10 MG TABLET (FOR DETOX USE ONLY) PO ONE (18:34)
[2021-01-16] MEDS ORDERED: cloNIDine HCL 0.1 MG TABLET PO PRN (18:34)
[2021-01-16] MEDS ORDERED: MAG HYDROX/AL HYDROX/SIMETH 30 ML UNIT-DOSE CUP PO PRN (18:34)
[2021-01-16] MEDS ORDERED: ACETAMINOPHEN 325 MG TABLET (FP) PO PRN (18:34)
[2021-01-16] MEDS ORDERED: BISMUTH SUBSALICYLATE 524 MG/30 ML UD PO PRN (18:34)
[2021-01-16] MEDS ORDERED: MAGNESIUM HYDROX 2400MG/30ML ORAL SUSPENSION 30 ML CUP PO PRN (18:34)
[2021-01-16] MEDS ORDERED: MAGNESIUM CITRATE 300 ML BOTTLE PO PRN (18:34)
[2021-01-16] MEDS ORDERED: NICOTINE POLACRILEX 2 MG GUM BUC PRN (18:34)
[2021-01-16] MEDS: NICOTINE 21 MG/24 HOURS TOPICAL PATCH TD SCH (21:30)
[2021-01-16] MEDS: THIAMINE HCL 100 MG TABLET (FP) PO SCH (22:42)
[2021-01-16] MEDS: hydrOXYzine PAMOATE 25 MG CAPSULE (FP) PO SCH (22:42)
[2021-01-16] MEDS: MELATONIN 5 MG TABLETS PO SCH (22:42)
[2021-01-16] MEDS: diazePAM 5 MG TABLET PO SCH (22:43)
[2021-01-17] MEDS: hydrOXYzine PAMOATE 25 MG CAPSULE (FP) PO SCH ×5 (06:20→21:55)
[2021-01-17] MEDS: diazePAM 5 MG TABLET PO SCH ×4 (06:20→22:25)
[2021-01-17] MEDS ORDERED: METHADONE HCL 5 MG TABLET (FOR DETOX USE ONLY) ONE (09:34)
[2021-01-17] MEDS ORDERED: METHADONE HCL 10 MG TABLET (FOR DETOX USE ONLY) ONE (09:34)
[2021-01-17] MEDS ORDERED: METHADONE (DETOX) 20 MG, METHADONE (DETOX) 5 MG PO ONE (10:00)
[2021-01-17] MEDS: PRENATAL VITAMINS W/ FOLIC ACID TABLET (FP) PO SCH (10:48)
[2021-01-17] MEDS: NICOTINE 21 MG/24 HOURS TOPICAL PATCH TD SCH (10:49)
[2021-01-17 12:16] LABS: CALCIUM 8.9 mg/dL (8.5-10.1)
[2021-01-17 12:17] LABS: ALBUMIN 3.5 g/dl (3.4-5.0); BLOOD UREA NITROGEN 7.5 mg/dL (7-18)
[2021-01-17 12:20] LABS: CREATININE 0.6 mg/dL (0.55-1.3); HEMATOCRIT 35.8 % (32.4-45.2); HEMOGLOBIN 12.3 GM/dL (10.7-15.3); MCH 29.1 pg (25.7-33.7); MCHC 34.4 g/dl (32.0-36.0); MEAN CELL VOLUME 84.4 fl (80-96); MEAN PLT VOLUME 10.8 fl (7.5-11.1); PLATELET COUNT 262 K/MM3 (134-434); RBC 4.24 M/mm3 (3.60-5.2); RDW 14.2 % (11.6-15.6); WHITE BLOOD COUNT 7.2 K/mm3 (4.0-10.0)
[2021-01-17 12:21] LABS: BILIRUBIN,TOTAL 0.4 mg/dL (0.2-1); TOT PROT 6.8 g/dl (6.4-8.2)
[2021-01-17] MEDS: MELATONIN 5 MG TABLETS PO SCH (21:55)
[2021-01-17] MEDS: lamoTRIgine 25 MG TABLET PO SCH (21:55)
[2021-01-17] MEDS: AMITRIPTYLINE HCL 100 MG TABLET PO SCH (21:55)
[2021-01-17] MEDS: THIAMINE HCL 100 MG TABLET (FP) PO SCH (21:55)
[2021-01-17] MEDS ORDERED: QUEtiapine FUMARATE 100 MG TABLET (FP) PO SCH (22:00)
[2021-01-18] MEDS: hydrOXYzine PAMOATE 25 MG CAPSULE (FP) PO SCH ×5 (06:06→22:02)
[2021-01-18] MEDS: diazePAM 5 MG TABLET PO SCH ×3 (06:07→22:01)
[2021-01-18] MEDS ORDERED: METHADONE HCL 10 MG TABLET (FOR DETOX USE ONLY) PO ONE (10:00)
[2021-01-18] MEDS: NICOTINE 21 MG/24 HOURS TOPICAL PATCH TD SCH (10:18)
[2021-01-18] MEDS: PRENATAL VITAMINS W/ FOLIC ACID TABLET (FP) PO SCH (10:19)
[2021-01-18] MEDS: diazePAM 5 MG TABLET PO PRN ×2 (10:19→17:25)
[2021-01-18] MEDS: FLUoxetine HCL 20 MG CAPSULE PO SCH (10:20)
[2021-01-18] MEDS: IBUPROFEN 400 MG TABLET (FP) PO PRN (11:53)
[2021-01-18] MEDS: lamoTRIgine 25 MG TABLET PO SCH ×2 (12:18→22:00)
[2021-01-18] MEDS: THIAMINE HCL 100 MG TABLET (FP) PO SCH (22:00)
[2021-01-18] MEDS: QUEtiapine FUMARATE 200 MG TABLET PO SCH (22:00)
[2021-01-18] MEDS: AMITRIPTYLINE HCL 100 MG TABLET PO SCH (22:01)
[2021-01-18] MEDS: ACETAMINOPHEN 325 MG TABLET (FP) PO PRN (22:02)
[2021-01-18] MEDS: SUVOREXANT 10 MG TABLET PO PRN (22:05)
[2021-01-19] MEDS: ACETAMINOPHEN 325 MG TABLET (FP) PO PRN (05:43)
[2021-01-19] MEDS: hydrOXYzine PAMOATE 25 MG CAPSULE (FP) PO SCH ×5 (05:44→22:13)
[2021-01-19] MEDS: diazePAM 5 MG TABLET PO SCH ×2 (05:44→17:49)
[2021-01-19 08:08] LABS: SARS-CoV-2 NAA Not Detected (Not Detected)
[2021-01-19] MEDS ORDERED: METHADONE HCL 5 MG TABLET (FOR DETOX USE ONLY) ONE (09:00)
[2021-01-19] MEDS ORDERED: METHADONE HCL 10 MG TABLET (FOR DETOX USE ONLY) ONE (09:00)
[2021-01-19] MEDS ORDERED: METHADONE (DETOX) 10 MG, METHADONE (DETOX) 5 MG PO ONE (10:00)
[2021-01-19] MEDS: FLUoxetine HCL 20 MG CAPSULE PO SCH (10:13)
[2021-01-19] MEDS: PRENATAL VITAMINS W/ FOLIC ACID TABLET (FP) PO SCH (10:14)
[2021-01-19] MEDS: lamoTRIgine 25 MG TABLET PO SCH ×2 (10:14→22:13)
[2021-01-19] MEDS: NICOTINE 21 MG/24 HOURS TOPICAL PATCH TD SCH (10:14)
[2021-01-19] MEDS: METHOCARBAMOL 500 MG TABLET PO PRN (10:17)
[2021-01-19] MEDS: IBUPROFEN 400 MG TABLET (FP) PO PRN ×2 (10:17→22:15)
[2021-01-19] MEDS: diazePAM 5 MG TABLET PO PRN ×2 (10:18→14:24)
[2021-01-19] MEDS: SUVOREXANT 10 MG TABLET PO PRN (22:13)
[2021-01-19] MEDS: QUEtiapine FUMARATE 200 MG TABLET PO SCH (22:13)
[2021-01-19] MEDS: AMITRIPTYLINE HCL 100 MG TABLET PO SCH (22:13)
[2021-01-19] MEDS: THIAMINE HCL 100 MG TABLET (FP) PO SCH (22:13)
[2021-01-20] MEDS: hydrOXYzine PAMOATE 25 MG CAPSULE (FP) PO SCH ×5 (05:37→22:01)
[2021-01-20] MEDS ORDERED: diazePAM 5 MG TABLET PO ONE (06:00)
[2021-01-20] MEDS ORDERED: METHADONE HCL 10 MG TABLET (FOR DETOX USE ONLY) PO ONE (10:00)
[2021-01-20] MEDS: PRENATAL VITAMINS W/ FOLIC ACID TABLET (FP) PO SCH (10:17)
[2021-01-20] MEDS: METHOCARBAMOL 500 MG TABLET PO PRN ×2 (10:17→18:42)
[2021-01-20] MEDS: FLUoxetine HCL 20 MG CAPSULE PO SCH (10:17)
[2021-01-20] MEDS: NICOTINE 21 MG/24 HOURS TOPICAL PATCH TD SCH (10:18)
[2021-01-20] MEDS: lamoTRIgine 25 MG TABLET PO SCH ×2 (10:19→22:01)
[2021-01-20] MEDS: IBUPROFEN 400 MG TABLET (FP) PO PRN (10:21)
[2021-01-20] MEDS: ACETAMINOPHEN 325 MG TABLET (FP) PO PRN (14:07)
[2021-01-20] MEDS: QUEtiapine FUMARATE 200 MG TABLET PO SCH (22:01)
[2021-01-20] MEDS: AMITRIPTYLINE HCL 100 MG TABLET PO SCH (22:02)
[2021-01-20] MEDS: SUVOREXANT 10 MG TABLET PO PRN (22:05)
[2021-01-20] MEDS: THIAMINE HCL 100 MG TABLET (FP) PO SCH (22:05)
[2021-01-21] MEDS ORDERED: METHADONE HCL 5 MG TABLET (FOR DETOX USE ONLY) PO ONE (06:00)
[2021-01-21] MEDS: hydrOXYzine PAMOATE 25 MG CAPSULE (FP) PO SCH ×2 (06:21→10:18)
[2021-01-21 09:09] VITALS: BP 125/64; PULSE 58; TEMP 97.3
[2021-01-21] MEDS: FLUoxetine HCL 20 MG CAPSULE PO SCH (10:18)
[2021-01-21] MEDS: lamoTRIgine 25 MG TABLET PO SCH (10:19)
[2021-01-21] MEDS: METHOCARBAMOL 500 MG TABLET PO PRN (10:19)
[2021-01-21] MEDS: PRENATAL VITAMINS W/ FOLIC ACID TABLET (FP) PO SCH (10:19)
[2021-01-21] MEDS: NICOTINE 21 MG/24 HOURS TOPICAL PATCH TD SCH (10:20)
== END 2021-01-21 11:36 | disposition other institution (70) | DRG 897 ==
LOC: YASAS 14:48 → Y6N 18:58
PROVIDERS: ADMIT Allergy & Immunology; ATTEND Allergy & Immunology
PROC: HZ2ZZZZ Detoxification Services for Substance Abuse Treatment (ICD-10-PCS; principal; 2021-01-16)
DX: F11.23 Opioid dependence with withdrawal (principal); F19.282 Other psychoactive substance dependence with psychoactive substance-induced sleep disorder; F31.81 Bipolar II disorder; F10.230 Alcohol dependence with withdrawal, uncomplicated; F14.10 Cocaine abuse, uncomplicated; F13.10 Sedative, hypnotic or anxiolytic abuse, uncomplicated; F17.210 Nicotine dependence, cigarettes, uncomplicated; F19.24 Other psychoactive substance dependence with psychoactive substance-induced mood disorder; F41.9 Anxiety disorder, unspecified; M54.5 Low back pain; G89.29 Other chronic pain; R74.01 Elevation of levels of liver transaminase levels; Z86.69 Personal history of other diseases of the nervous system and sense organs; Z91.018 Allergy to other foods; Z91.013 Allergy to seafood
CPT/HCPCS: 36415; 80053; 81025; 85027; 86780; C9803; U0003; U0005

== ENCOUNTER 2021-01-21 11:46 | Inpatient (IN) | payer MEDICARE, OTHER ==
[2021-01-21] MEDS ORDERED: ACETAMINOPHEN 325 MG TABLET (FP) PO PRN (12:24)
[2021-01-21] MEDS ORDERED: MAG HYDROX/AL HYDROX/SIMETH 30 ML UNIT-DOSE CUP PO PRN (12:24)
[2021-01-21] MEDS ORDERED: P-EPHED 60MG/TRIPROLIDI 2.5MG TABLET PO PRN (12:24)
[2021-01-21] MEDS ORDERED: MAGNESIUM CITRATE 300 ML BOTTLE PO PRN (12:24)
[2021-01-21] MEDS ORDERED: MAGNESIUM HYDROX 2400MG/30ML ORAL SUSPENSION 30 ML CUP PO PRN (12:24)
[2021-01-21] MEDS ORDERED: MENTHOL/PHENOL 1 EACH UD MM PRN (12:24)
[2021-01-21] MEDS ORDERED: hydrOXYzine PAMOATE 25 MG CAPSULE (FP) PO PRN (12:24)
[2021-01-21] MEDS ORDERED: guaiFENesin 200 MG/10 ML 10 ML UNIT-DOSE CUPS PO PRN (12:24)
[2021-01-21] MEDS ORDERED: NICOTINE POLACRILEX 2 MG GUM BUC PRN (12:24)
[2021-01-21] MEDS ORDERED: LOPERAMIDE HCL 2 MG CAPSULE PO PRN (12:24)
[2021-01-21] MEDS: hydrOXYzine PAMOATE 50 MG CAPSULE (FP) PO PRN (16:34)
[2021-01-21] MEDS: IBUPROFEN 400 MG TABLET (FP) PO PRN (16:34)
[2021-01-21] MEDS: busPIRone HCL 10 MG TABLET (FP) PO SCH (16:34)
[2021-01-21] MEDS ORDERED: TUBERCULIN PPD 5 TU/0.1ML VIAL ID ONE (16:52)
[2021-01-21] MEDS ORDERED: PT OWN MED DRAWER 7, Y5N ONE (20:50)
[2021-01-21] MEDS: QUEtiapine FUMARATE 200 MG TABLET PO SCH (21:59)
[2021-01-21] MEDS: lamoTRIgine 25 MG TABLET PO SCH (21:59)
[2021-01-21] MEDS: AMITRIPTYLINE HCL 100 MG TABLET PO SCH (22:00)
[2021-01-21] MEDS: THIAMINE HCL 100 MG TABLET (FP) PO SCH (22:00)
[2021-01-21] MEDS: MELATONIN 5 MG TABLETS PO SCH (22:02)
[2021-01-21] MEDS: SUVOREXANT 10 MG TABLET PO PRN (22:03)
[2021-01-22] MEDS ORDERED: NICOTINE 7 MG/24 HOURS TOPICAL PATCH TD SCH (10:00)
[2021-01-22] MEDS: PRENATAL VITAMINS W/ FOLIC ACID TABLET (FP) PO SCH (10:32)
[2021-01-22] MEDS: lamoTRIgine 25 MG TABLET PO SCH ×2 (10:33→21:15)
[2021-01-22] MEDS: busPIRone HCL 10 MG TABLET (FP) PO SCH ×2 (10:35→17:32)
[2021-01-22] MEDS: FLUoxetine HCL 20 MG CAPSULE PO SCH (10:35)
[2021-01-22] MEDS: IBUPROFEN 400 MG TABLET (FP) PO PRN (10:36)
[2021-01-22] MEDS: hydrOXYzine PAMOATE 50 MG CAPSULE (FP) PO PRN (15:36)
[2021-01-22] MEDS ORDERED: PT OWN MED DRAWER 7, Y5N ONE (20:35)
[2021-01-22] MEDS: THIAMINE HCL 100 MG TABLET (FP) PO SCH (21:15)
[2021-01-22] MEDS: QUEtiapine FUMARATE 200 MG TABLET PO SCH (21:15)
[2021-01-22] MEDS: AMITRIPTYLINE HCL 100 MG TABLET PO SCH (21:16)
[2021-01-22] MEDS: MELATONIN 5 MG TABLETS PO SCH (21:18)
[2021-01-22] MEDS: SUVOREXANT 10 MG TABLET PO PRN (21:18)
[2021-01-23] MEDS: busPIRone HCL 10 MG TABLET (FP) PO SCH ×2 (10:02→17:54)
[2021-01-23] MEDS: FLUoxetine HCL 20 MG CAPSULE PO SCH (10:02)
[2021-01-23] MEDS: PRENATAL VITAMINS W/ FOLIC ACID TABLET (FP) PO SCH (10:02)
[2021-01-23] MEDS: lamoTRIgine 25 MG TABLET PO SCH ×2 (10:03→22:01)
[2021-01-23] MEDS: IBUPROFEN 400 MG TABLET (FP) PO PRN (10:04)
[2021-01-23] MEDS: hydrOXYzine PAMOATE 50 MG CAPSULE (FP) PO PRN ×2 (10:04→22:01)
[2021-01-23] MEDS: NICOTINE 7 MG/24 HOURS TOPICAL PATCH TD SCH (11:12)
[2021-01-23] MEDS ORDERED: PT OWN MED DRAWER 7, Y5N ONE ×3 (17:45→22:02)
[2021-01-23] MEDS: SUVOREXANT 10 MG TABLET PO PRN (22:00)
[2021-01-23] MEDS: AMITRIPTYLINE HCL 100 MG TABLET PO SCH (22:00)
[2021-01-23] MEDS: MELATONIN 5 MG TABLETS PO SCH (22:01)
[2021-01-23] MEDS: QUEtiapine FUMARATE 200 MG TABLET PO SCH (22:01)
[2021-01-23] MEDS: THIAMINE HCL 100 MG TABLET (FP) PO SCH (22:01)
[2021-01-24] MEDS: PRENATAL VITAMINS W/ FOLIC ACID TABLET (FP) PO SCH (10:37)
[2021-01-24] MEDS: FLUoxetine HCL 20 MG CAPSULE PO SCH (10:38)
[2021-01-24] MEDS: NICOTINE 7 MG/24 HOURS TOPICAL PATCH TD SCH (10:38)
[2021-01-24] MEDS: hydrOXYzine PAMOATE 50 MG CAPSULE (FP) PO PRN ×2 (10:38→21:15)
[2021-01-24] MEDS: busPIRone HCL 10 MG TABLET (FP) PO SCH ×2 (10:38→17:07)
[2021-01-24] MEDS: lamoTRIgine 25 MG TABLET PO SCH ×2 (10:39→21:15)
[2021-01-24] MEDS: IBUPROFEN 400 MG TABLET (FP) PO PRN (12:22)
[2021-01-24] MEDS ORDERED: PT OWN MED DRAWER 7, Y5N ONE (20:09)
[2021-01-24] MEDS: SUVOREXANT 10 MG TABLET PO PRN (21:14)
[2021-01-24] MEDS: THIAMINE HCL 100 MG TABLET (FP) PO SCH (21:15)
[2021-01-24] MEDS: QUEtiapine FUMARATE 200 MG TABLET PO SCH (21:15)
[2021-01-24] MEDS: AMITRIPTYLINE HCL 100 MG TABLET PO SCH (21:15)
[2021-01-24] MEDS: MELATONIN 5 MG TABLETS PO SCH (21:15)
[2021-01-24] MEDS ORDERED: SUVOREXANT 10 MG TABLET PO PRN (22:00)
[2021-01-25] MEDS: busPIRone HCL 10 MG TABLET (FP) PO SCH ×2 (10:25→18:13)
[2021-01-25] MEDS: FLUoxetine HCL 20 MG CAPSULE PO SCH (10:25)
[2021-01-25] MEDS: lamoTRIgine 25 MG TABLET PO SCH ×2 (10:26→21:54)
[2021-01-25] MEDS: PRENATAL VITAMINS W/ FOLIC ACID TABLET (FP) PO SCH (10:26)
[2021-01-25] MEDS: hydrOXYzine PAMOATE 50 MG CAPSULE (FP) PO PRN ×2 (10:27→18:14)
[2021-01-25] MEDS ORDERED: NICOTINE 21 MG/24 HOURS TOPICAL PATCH TD SCH (10:43)
[2021-01-25] MEDS: NICOTINE 7 MG/24 HOURS TOPICAL PATCH TD SCH (10:46)
[2021-01-25] MEDS: NICOTINE 21 MG/24 HOURS TOPICAL PATCH TD SCH (10:46)
[2021-01-25] MEDS: METHOCARBAMOL 500 MG TABLET PO SCH ×2 (13:33→21:54)
[2021-01-25] MEDS: IBUPROFEN 600 MG TABLET (FP) PO PRN (18:14)
[2021-01-25] MEDS: QUEtiapine FUMARATE 200 MG TABLET PO SCH (21:54)
[2021-01-25] MEDS: THIAMINE HCL 100 MG TABLET (FP) PO SCH (21:54)
[2021-01-25] MEDS: MELATONIN 5 MG TABLETS PO SCH (21:55)
[2021-01-25] MEDS: AMITRIPTYLINE HCL 100 MG TABLET PO SCH (21:55)
[2021-01-26] MEDS: METHOCARBAMOL 500 MG TABLET PO SCH ×2 (06:43→14:07)
[2021-01-26] MEDS: NICOTINE 21 MG/24 HOURS TOPICAL PATCH TD SCH (10:18)
[2021-01-26] MEDS: PRENATAL VITAMINS W/ FOLIC ACID TABLET (FP) PO SCH (10:18)
[2021-01-26] MEDS: FLUoxetine HCL 20 MG CAPSULE PO SCH (10:19)
[2021-01-26] MEDS: busPIRone HCL 10 MG TABLET (FP) PO SCH (10:19)
[2021-01-26] MEDS: lamoTRIgine 25 MG TABLET PO SCH ×2 (10:20→21:19)
[2021-01-26] MEDS: hydrOXYzine PAMOATE 50 MG CAPSULE (FP) PO PRN (10:20)
[2021-01-26 12:59] LABS: SARS-CoV-2 NAA Not Detected
[2021-01-26] MEDS ORDERED: PT OWN MED DRAWER 7, Y5N ONE ×3 (13:57→21:22)
[2021-01-26] MEDS: AMITRIPTYLINE HCL 100 MG TABLET PO SCH (21:19)
[2021-01-26] MEDS: THIAMINE HCL 100 MG TABLET (FP) PO SCH (21:19)
[2021-01-26] MEDS: QUEtiapine FUMARATE 300 MG TABLET PO SCH (21:19)
[2021-01-26] MEDS: SUVOREXANT 10 MG TABLET PO PRN (21:22)
[2021-01-26] MEDS: MELATONIN 5 MG TABLETS PO SCH (21:22)
[2021-01-27] MEDS: METHOCARBAMOL 500 MG TABLET PO PRN (07:11)
[2021-01-27] MEDS ORDERED: PT OWN MED DRAWER 7, Y5N ONE ×2 (09:03→20:54)
[2021-01-27] MEDS: PRENATAL VITAMINS W/ FOLIC ACID TABLET (FP) PO SCH (09:41)
[2021-01-27] MEDS: lamoTRIgine 25 MG TABLET PO SCH ×2 (09:42→21:40)
[2021-01-27] MEDS: NICOTINE 21 MG/24 HOURS TOPICAL PATCH TD SCH (09:42)
[2021-01-27] MEDS: FLUoxetine HCL 20 MG CAPSULE PO SCH (09:42)
[2021-01-27] MEDS ORDERED: COVID-19 VAC,AD26(JANSSEN)/PF 0.5 ML IM ONE (10:00)
[2021-01-27] MEDS: hydrOXYzine PAMOATE 50 MG CAPSULE (FP) PO PRN (17:31)
[2021-01-27] MEDS: QUEtiapine FUMARATE 300 MG TABLET PO SCH (21:40)
[2021-01-27] MEDS: THIAMINE HCL 100 MG TABLET (FP) PO SCH (21:40)
[2021-01-27] MEDS: AMITRIPTYLINE HCL 100 MG TABLET PO SCH (21:40)
[2021-01-27] MEDS: MELATONIN 5 MG TABLETS PO SCH (21:41)
[2021-01-27] MEDS: SUVOREXANT 10 MG TABLET PO PRN (21:42)
[2021-01-27] MEDS: IBUPROFEN 600 MG TABLET (FP) PO PRN (21:42)
[2021-01-28] MEDS: FLUoxetine HCL 20 MG CAPSULE PO SCH (10:04)
[2021-01-28] MEDS: PRENATAL VITAMINS W/ FOLIC ACID TABLET (FP) PO SCH (10:04)
[2021-01-28] MEDS: NICOTINE 21 MG/24 HOURS TOPICAL PATCH TD SCH (10:04)
[2021-01-28] MEDS: lamoTRIgine 25 MG TABLET PO SCH ×2 (10:05→21:17)
[2021-01-28] MEDS: hydrOXYzine PAMOATE 50 MG CAPSULE (FP) PO PRN ×2 (11:59→18:08)
[2021-01-28] MEDS: IBUPROFEN 600 MG TABLET (FP) PO PRN (13:14)
[2021-01-28] MEDS: METHOCARBAMOL 500 MG TABLET PO PRN (18:08)
[2021-01-28] MEDS: MELATONIN 5 MG TABLETS PO SCH (21:17)
[2021-01-28] MEDS: SUVOREXANT 10 MG TABLET PO PRN (21:17)
[2021-01-28] MEDS: AMITRIPTYLINE HCL 100 MG TABLET PO SCH (21:17)
[2021-01-28] MEDS: THIAMINE HCL 100 MG TABLET (FP) PO SCH (21:17)
[2021-01-28] MEDS: QUEtiapine FUMARATE 300 MG TABLET PO SCH (21:17)
[2021-01-29] MEDS: FLUoxetine HCL 20 MG CAPSULE PO SCH (10:24)
[2021-01-29] MEDS: lamoTRIgine 25 MG TABLET PO SCH ×2 (10:26→21:46)
[2021-01-29] MEDS: NICOTINE 21 MG/24 HOURS TOPICAL PATCH TD SCH (10:27)
[2021-01-29] MEDS: PRENATAL VITAMINS W/ FOLIC ACID TABLET (FP) PO SCH (10:27)
[2021-01-29] MEDS: hydrOXYzine PAMOATE 50 MG CAPSULE (FP) PO PRN ×2 (10:29→16:44)
[2021-01-29] MEDS: METHOCARBAMOL 500 MG TABLET PO PRN (16:44)
[2021-01-29] MEDS: AMITRIPTYLINE HCL 100 MG TABLET PO SCH (21:45)
[2021-01-29] MEDS ORDERED: PT OWN MED DRAWER 7, Y5N ONE (21:46)
[2021-01-29] MEDS: MELATONIN 5 MG TABLETS PO SCH (21:46)
[2021-01-29] MEDS: THIAMINE HCL 100 MG TABLET (FP) PO SCH (21:46)
[2021-01-29] MEDS: QUEtiapine FUMARATE 300 MG TABLET PO SCH (21:47)
[2021-01-30] MEDS: FLUoxetine HCL 20 MG CAPSULE PO SCH (10:11)
[2021-01-30] MEDS: PRENATAL VITAMINS W/ FOLIC ACID TABLET (FP) PO SCH (10:11)
[2021-01-30] MEDS: NICOTINE 21 MG/24 HOURS TOPICAL PATCH TD SCH (10:11)
[2021-01-30] MEDS: METHOCARBAMOL 500 MG TABLET PO PRN (10:11)
[2021-01-30] MEDS: lamoTRIgine 25 MG TABLET PO SCH ×2 (10:12→21:23)
[2021-01-30] MEDS: hydrOXYzine PAMOATE 50 MG CAPSULE (FP) PO PRN (10:12)
[2021-01-30] MEDS ORDERED: PT OWN MED DRAWER 7, Y5N ONE (19:31)
[2021-01-30] MEDS: THIAMINE HCL 100 MG TABLET (FP) PO SCH (21:23)
[2021-01-30] MEDS: QUEtiapine FUMARATE 300 MG TABLET PO SCH (21:23)
[2021-01-30] MEDS: MELATONIN 5 MG TABLETS PO SCH (21:23)
[2021-01-30] MEDS: AMITRIPTYLINE HCL 100 MG TABLET PO SCH (21:24)
[2021-01-30] MEDS: SUVOREXANT 10 MG TABLET PO PRN (21:25)
[2021-01-31] MEDS: PRENATAL VITAMINS W/ FOLIC ACID TABLET (FP) PO SCH (10:19)
[2021-01-31] MEDS: lamoTRIgine 25 MG TABLET PO SCH ×2 (10:20→21:53)
[2021-01-31] MEDS: NICOTINE 21 MG/24 HOURS TOPICAL PATCH TD SCH (10:20)
[2021-01-31] MEDS: FLUoxetine HCL 20 MG CAPSULE PO SCH (10:21)
[2021-01-31] MEDS: hydrOXYzine PAMOATE 50 MG CAPSULE (FP) PO PRN ×2 (14:56→21:55)
[2021-01-31] MEDS ORDERED: PT OWN MED DRAWER 7, Y5N ONE (20:45)
[2021-01-31] MEDS: THIAMINE HCL 100 MG TABLET (FP) PO SCH (21:52)
[2021-01-31] MEDS: QUEtiapine FUMARATE 300 MG TABLET PO SCH (21:52)
[2021-01-31] MEDS: AMITRIPTYLINE HCL 100 MG TABLET PO SCH (21:53)
[2021-01-31] MEDS: SUVOREXANT 10 MG TABLET PO PRN (21:53)
[2021-01-31] MEDS: MELATONIN 5 MG TABLETS PO SCH (21:54)
[2021-02-01] MEDS ORDERED: PT OWN MED DRAWER 7, Y5N ONE (08:49)
[2021-02-01] MEDS: IBUPROFEN 600 MG TABLET (FP) PO PRN ×2 (08:57→21:22)
[2021-02-01] MEDS: PRENATAL VITAMINS W/ FOLIC ACID TABLET (FP) PO SCH (10:28)
[2021-02-01] MEDS: NICOTINE 21 MG/24 HOURS TOPICAL PATCH TD SCH (10:29)
[2021-02-01] MEDS: lamoTRIgine 25 MG TABLET PO SCH ×2 (10:29→21:22)
[2021-02-01] MEDS: FLUoxetine HCL 20 MG CAPSULE PO SCH (10:29)
[2021-02-01] MEDS: SUVOREXANT 10 MG TABLET PO PRN (21:21)
[2021-02-01] MEDS: THIAMINE HCL 100 MG TABLET (FP) PO SCH (21:23)
[2021-02-01] MEDS: METHOCARBAMOL 500 MG TABLET PO PRN (21:23)
[2021-02-01] MEDS: hydrOXYzine PAMOATE 50 MG CAPSULE (FP) PO PRN (21:23)
[2021-02-01] MEDS: AMITRIPTYLINE HCL 100 MG TABLET PO SCH (21:23)
[2021-02-01] MEDS: QUEtiapine FUMARATE 300 MG TABLET PO SCH (21:23)
[2021-02-01] MEDS: MELATONIN 5 MG TABLETS PO SCH (21:24)
[2021-02-02 06:51] VITALS: BP 137/80; PULSE 92; TEMP 97.5
[2021-02-02] MEDS ORDERED: PT OWN MED DRAWER 7, Y5N ONE (08:17)
== END 2021-02-02 08:05 | disposition home or self-care (01) | DRG 895 ==
LOC: YASAS 11:46 → Y5N 11:48
PROVIDERS: ADMIT Allergy & Immunology; ATTEND Allergy & Immunology
PROC: HZ42ZZZ Group Counseling for Substance Abuse Treatment, Cognitive-Behavioral (ICD-10-PCS; principal; 2021-01-21)
DX: F11.20 Opioid dependence, uncomplicated (principal); F14.20 Cocaine dependence, uncomplicated; F13.20 Sedative, hypnotic or anxiolytic dependence, uncomplicated; F31.81 Bipolar II disorder; F19.280 Other psychoactive substance dependence with psychoactive substance-induced anxiety disorder; F10.20 Alcohol dependence, uncomplicated; F17.210 Nicotine dependence, cigarettes, uncomplicated; F19.24 Other psychoactive substance dependence with psychoactive substance-induced mood disorder; H57.11 Ocular pain, right eye; M54.5 Low back pain; G89.29 Other chronic pain; Z86.69 Personal history of other diseases of the nervous system and sense organs; Z91.410 Personal history of adult physical and sexual abuse; Z91.018 Allergy to other foods
CPT/HCPCS: 0031A; 91303; C9803; U0003; U0005

== ENCOUNTER 2021-07-22 20:45 | Inpatient (IN) | payer MEDICARE, OTHER ==
[2021-07-22 20:55] VITALS: BMI 26.2
[2021-07-22] MEDS ORDERED: MAGNESIUM CITRATE 300 ML BOTTLE PO PRN (22:02)
[2021-07-22] MEDS ORDERED: MENTHOL/PHENOL 1 EACH UD MM PRN (22:02)
[2021-07-22] MEDS ORDERED: MAGNESIUM HYDROX 2400MG/30ML ORAL SUSPENSION 30 ML CUP PO PRN (22:02)
[2021-07-22] MEDS ORDERED: BISMUTH SUBSALICYLATE 524 MG/30 ML PO PRN (22:02)
[2021-07-22] MEDS ORDERED: ACETAMINOPHEN 325 MG TABLET (FP) PO PRN ×2 (22:02)
[2021-07-22] MEDS ORDERED: NICOTINE 10 MG CARTRIDGE (INHALER) IH PRN (22:02)
[2021-07-22] MEDS ORDERED: MAG HYDROX/AL HYDROX/SIMETH 30 ML UNIT-DOSE CUP PO PRN (22:02)
[2021-07-22] MEDS ORDERED: methaDONE HCL 10 MG TABLET (FOR DETOX USE ONLY) PO ONE (22:07)
[2021-07-22] MEDS: hydrOXYzine PAMOATE 25 MG CAPSULE (FP) PO PRN (23:55)
[2021-07-22] MEDS: ONDANSETRON *ODT* 4 MG TABLET SL PRN (23:55)
[2021-07-23] MEDS: METHOCARBAMOL 500 MG TABLET PO PRN ×3 (00:45→22:22)
[2021-07-23] MEDS: cloNIDine HCL 0.1 MG TABLET PO PRN ×2 (01:03→07:17)
[2021-07-23] MEDS ORDERED: methaDONE HCL 10 MG TABLET (FOR DETOX USE ONLY) ONE (09:37)
[2021-07-23] MEDS ORDERED: SIMETHICONE 80 MG TAB.CHEW (FP) PO PRN (09:54)
[2021-07-23 10:29] LABS: ALBUMIN 3.9 g/dl (3.4-5.0); BLOOD UREA NITROGEN 8.1 mg/dL (7-18); CALCIUM 9.6 mg/dL (8.5-10.1)
[2021-07-23 10:32] LABS: CREATININE 0.7 mg/dL (0.55-1.3)
[2021-07-23 10:33] LABS: HEMATOCRIT 37.6 % (32.4-45.2); HEMOGLOBIN 12.5 GM/dL (10.7-15.3); MCH 26.8 pg (25.7-33.7); MCHC 33.2 g/dl (32.0-36.0); MEAN CELL VOLUME 80.9 fl (80-96); MEAN PLT VOLUME 10.5 fl (7.5-11.1); PLATELET COUNT 333 10^3/uL (134-434); RBC 4.65 M/mm3 (3.60-5.2); RDW 14.5 % (11.6-15.6); WHITE BLOOD COUNT 13.3 K/mm3 (4.0-10.0)
[2021-07-23 10:34] LABS: BILIRUBIN,TOTAL 0.6 mg/dL (0.2-1); TOT PROT 6.9 g/dl (6.4-8.2)
[2021-07-23] MEDS: CLOTRIMAZOLE/BETAMET DIPROP 15 GM TUBE TP SCH ×2 (10:50→22:19)
[2021-07-23] MEDS: PRENATAL VITAMINS W/ FOLIC ACID TABLET (FP) PO SCH (10:51)
[2021-07-23] MEDS: hydrOXYzine PAMOATE 25 MG CAPSULE (FP) PO PRN (10:51)
[2021-07-23] MEDS: [UNRECOGNIZED DRUG - OTHER] PO SCH ×2 (10:57→22:17)
[2021-07-23] MEDS: PATIENT'S OWN MEDICATION (NON-FORMULARY) (Potassium Chloride [Potassium Chloride] 20 MEQ T PO SCH ×2 (10:57→22:17)
[2021-07-23] MEDS: LIDOCAINE 5% TOPICAL PATCH TP SCH (10:57)
[2021-07-23] MEDS: NICOTINE 21 MG/24 HOURS TOPICAL PATCH TD SCH (10:58)
[2021-07-23] MEDS: ONDANSETRON *ODT* 4 MG TABLET SL PRN (11:31)
[2021-07-23] MEDS: diazePAM 5 MG TABLET PO PRN ×3 (11:31→22:22)
[2021-07-23] MEDS ORDERED: MELATONIN 5 MG TABLETS PO SCH (22:00)
[2021-07-23] MEDS: THIAMINE HCL 100 MG TABLET (FP) PO SCH (22:17)
[2021-07-23] MEDS: LIDOCAINE PATCH REMOVAL MC SCH ×2 (22:18→22:54)
[2021-07-23] MEDS: AMITRIPTYLINE HCL 100 MG TABLET PO SCH (22:18)
[2021-07-23] MEDS: QUEtiapine FUMARATE 200 MG TABLET PO SCH (22:20)
[2021-07-24] MEDS: diazePAM 5 MG TABLET PO PRN ×4 (05:20→22:24)
[2021-07-24] MEDS ORDERED: methaDONE HCL 10 MG TABLET (FOR DETOX USE ONLY) PO ONE (10:00)
[2021-07-24] MEDS: PRENATAL VITAMINS W/ FOLIC ACID TABLET (FP) PO SCH (10:07)
[2021-07-24] MEDS: LIDOCAINE 5% TOPICAL PATCH TP SCH (10:07)
[2021-07-24] MEDS: hydrOXYzine PAMOATE 25 MG CAPSULE (FP) PO PRN ×2 (10:08→14:00)
[2021-07-24] MEDS: FLUoxetine HCL 20 MG CAPSULE PO SCH (10:08)
[2021-07-24] MEDS: METHOCARBAMOL 500 MG TABLET PO PRN (10:08)
[2021-07-24] MEDS: PATIENT'S OWN MEDICATION (NON-FORMULARY) (Potassium Chloride [Potassium Chloride] 20 MEQ T PO SCH ×2 (10:09→22:26)
[2021-07-24] MEDS: [UNRECOGNIZED DRUG - OTHER] PO SCH ×2 (10:09→23:44)
[2021-07-24] MEDS: NICOTINE 21 MG/24 HOURS TOPICAL PATCH TD SCH (10:11)
[2021-07-24] MEDS: CLOTRIMAZOLE/BETAMET DIPROP 15 GM TUBE TP SCH ×2 (10:11→22:31)
[2021-07-24] MEDS: THIAMINE HCL 100 MG TABLET (FP) PO SCH (22:24)
[2021-07-24] MEDS: QUEtiapine FUMARATE 200 MG TABLET PO SCH (22:26)
[2021-07-24] MEDS: LIDOCAINE PATCH REMOVAL MC SCH (22:30)
[2021-07-24] MEDS: AMITRIPTYLINE HCL 100 MG TABLET PO SCH (22:30)
[2021-07-25] MEDS: diazePAM 5 MG TABLET PO PRN ×4 (07:57→22:35)
[2021-07-25] MEDS ORDERED: methaDONE HCL 10 MG TABLET (FOR DETOX USE ONLY) ONE (09:50)
[2021-07-25] MEDS: LIDOCAINE 5% TOPICAL PATCH TP SCH (10:13)
[2021-07-25] MEDS: PRENATAL VITAMINS W/ FOLIC ACID TABLET (FP) PO SCH (10:13)
[2021-07-25] MEDS: FLUoxetine HCL 20 MG CAPSULE PO SCH (10:15)
[2021-07-25] MEDS: METHOCARBAMOL 500 MG TABLET PO PRN ×2 (10:15→17:31)
[2021-07-25] MEDS: hydrOXYzine PAMOATE 25 MG CAPSULE (FP) PO PRN ×5 (10:15→22:36)
[2021-07-25] MEDS: NICOTINE 21 MG/24 HOURS TOPICAL PATCH TD SCH (10:17)
[2021-07-25] MEDS: CLOTRIMAZOLE/BETAMET DIPROP 15 GM TUBE TP SCH ×2 (10:17→22:37)
[2021-07-25 19:56] LABS: EPI CELLS >36 /uL (0-25.1); HYALINE CASTS 45 /uL (0-3.1); PH,URINE 7.5 (5.0-8.0); URINE APPEARANCE TURBID; URINE BACTERIA 6417 /uL (0-1359); URINE BILIRUBIN NEGATIVE (NEGATIVE); URINE COLOR YELLOW; URINE GLUCOSE (UA) NEGATIVE (NEGATIVE); URINE KETONE TRACE (NEGATIVE); URINE LEUK ESTERASE 3+ (NEGATIVE); URINE NITRITE NEGATIVE (NEGATIVE); URINE PROTEIN 2+ (NEGATIVE); URINE WBC 18501 /uL (0-25.8)
[2021-07-25] MEDS ORDERED: PHENAZOPYRIDINE HCL 100 MG TABLET (FP) PO ONE (20:12)
[2021-07-25 20:31] LABS: URINE RBC 1091.8 /uL (0-23.9)
[2021-07-25] MEDS: THIAMINE HCL 100 MG TABLET (FP) PO SCH (22:36)
[2021-07-25] MEDS: QUEtiapine FUMARATE 200 MG TABLET PO SCH (22:37)
[2021-07-25] MEDS: LIDOCAINE PATCH REMOVAL MC SCH (22:45)
[2021-07-25] MEDS: AMITRIPTYLINE HCL 100 MG TABLET PO SCH (22:53)
[2021-07-26] MEDS: diazePAM 5 MG TABLET PO PRN ×2 (05:38→10:05)
[2021-07-26] MEDS: METHOCARBAMOL 500 MG TABLET PO PRN (05:42)
[2021-07-26] MEDS ORDERED: methaDONE HCL 10 MG TABLET (FOR DETOX USE ONLY) PO ONE (10:00)
[2021-07-26] MEDS: LIDOCAINE 5% TOPICAL PATCH TP SCH (10:06)
[2021-07-26] MEDS: FLUoxetine HCL 20 MG CAPSULE PO SCH (10:06)
[2021-07-26] MEDS: PRENATAL VITAMINS W/ FOLIC ACID TABLET (FP) PO SCH (10:07)
[2021-07-26] MEDS: CLOTRIMAZOLE/BETAMET DIPROP 15 GM TUBE TP SCH ×2 (10:07→22:14)
[2021-07-26] MEDS: NICOTINE 21 MG/24 HOURS TOPICAL PATCH TD SCH (10:09)
[2021-07-26 10:14] LABS: BASO % 1.2 % (0-2.0); EOS % 2.2 % (0-4.5); HEMOGLOBIN 13.9 GM/dL (10.7-15.3); MCH 27.6 pg (25.7-33.7); MCHC 33.1 g/dl (32.0-36.0); MEAN CELL VOLUME 83.4 fl (80-96); MEAN PLT VOLUME 10.6 fl (7.5-11.1); MONO % 11.4 % (3.8-10.2); NEUT % 60.2 % (42.8-82.8); PLATELET COUNT 322 10^3/uL (134-434); RBC 5.03 M/mm3 (3.60-5.2); RDW 14.4 % (11.6-15.6); WHITE BLOOD COUNT 7.2 K/mm3 (4.0-10.0)
[2021-07-26 11:16] LABS: HIV INTERPRETATION NEGATIVE (NEGATIVE)
[2021-07-26] MEDS ORDERED: diazePAM 5 MG TABLET PO ONE ×2 (15:00→22:56)
[2021-07-26] MEDS: IBUPROFEN 400 MG TABLET (FP) PO PRN (20:15)
[2021-07-26] MEDS ORDERED: PHENAZOPYRIDINE HCL 100 MG TABLET (FP) PO ONE (21:12)
[2021-07-26] MEDS ORDERED: SULFAMETHOXAZOLE/TRIMETHOPRIM 800MG/160MG D.S. TABLET PO SCH (22:00)
[2021-07-26] MEDS: AMITRIPTYLINE HCL 100 MG TABLET PO SCH (22:13)
[2021-07-26] MEDS: LIDOCAINE PATCH REMOVAL MC SCH (22:14)
[2021-07-26] MEDS: THIAMINE HCL 100 MG TABLET (FP) PO SCH (22:14)
[2021-07-26] MEDS: QUEtiapine FUMARATE 200 MG TABLET PO SCH (22:14)
[2021-07-27] MEDS: METHOCARBAMOL 500 MG TABLET PO PRN (06:05)
[2021-07-27] MEDS: IBUPROFEN 400 MG TABLET (FP) PO PRN (10:09)
[2021-07-27] MEDS: FLUoxetine HCL 20 MG CAPSULE PO SCH (10:09)
[2021-07-27] MEDS: PRENATAL VITAMINS W/ FOLIC ACID TABLET (FP) PO SCH (10:09)
[2021-07-27] MEDS: hydrOXYzine PAMOATE 25 MG CAPSULE (FP) PO PRN (10:11)
[2021-07-27] MEDS: LIDOCAINE 5% TOPICAL PATCH TP SCH (10:12)
[2021-07-27] MEDS: NICOTINE 21 MG/24 HOURS TOPICAL PATCH TD SCH (10:12)
[2021-07-27] MEDS: CLOTRIMAZOLE/BETAMET DIPROP 15 GM TUBE TP SCH (10:13)
[2021-07-27 11:26] VITALS: BP 132/76; PULSE 98; TEMP 98.2
== END 2021-07-27 11:26 | disposition other institution (70) | DRG 897 ==
LOC: YASAS 20:45 → Y6N 22:32
PROVIDERS: ADMIT Allergy & Immunology; ATTEND Allergy & Immunology
PROC: HZ2ZZZZ Detoxification Services for Substance Abuse Treatment (ICD-10-PCS; principal; 2021-07-22)
DX: F11.23 Opioid dependence with withdrawal (principal); F14.20 Cocaine dependence, uncomplicated; F19.280 Other psychoactive substance dependence with psychoactive substance-induced anxiety disorder; F19.282 Other psychoactive substance dependence with psychoactive substance-induced sleep disorder; N39.0 Urinary tract infection, site not specified; F17.213 Nicotine dependence, cigarettes, with withdrawal; F31.9 Bipolar disorder, unspecified; F41.8 Other specified anxiety disorders; B95.7 Other staphylococcus as the cause of diseases classified elsewhere; D72.829 Elevated white blood cell count, unspecified; Z91.013 Allergy to seafood; Z91.018 Allergy to other foods
CPT/HCPCS: 36415; 80053; 81003; 81025; 82962; 85025; 85027; 86780; 87086; 87186; 87389; 93005; 93010; C9803; J0735; Q0162; U0003; U0005

== ENCOUNTER 2021-07-27 11:38 | Inpatient (IN) | payer MEDICARE, OTHER ==
[2021-07-27] MEDS ORDERED: MAGNESIUM HYDROX 2400MG/30ML ORAL SUSPENSION 30 ML CUP PO PRN (11:43)
[2021-07-27] MEDS ORDERED: LOPERAMIDE HCL 2 MG CAPSULE PO PRN (11:43)
[2021-07-27] MEDS ORDERED: NICOTINE POLACRILEX 4 MG GUM BUC PRN (11:43)
[2021-07-27] MEDS ORDERED: MAGNESIUM CITRATE 300 ML BOTTLE PO PRN (11:43)
[2021-07-27] MEDS ORDERED: ACETAMINOPHEN 325 MG TABLET (FP) PO PRN (11:43)
[2021-07-27] MEDS ORDERED: hydrOXYzine PAMOATE 25 MG CAPSULE (FP) PO PRN (11:43)
[2021-07-27] MEDS ORDERED: MAG HYDROX/AL HYDROX/SIMETH 30 ML UNIT-DOSE CUP PO PRN (11:43)
[2021-07-27] MEDS ORDERED: P-EPHED 60MG/TRIPROLIDI 2.5MG TABLET PO PRN (11:43)
[2021-07-27] MEDS ORDERED: guaiFENesin 200 MG/10 ML 10 ML UNIT-DOSE CUPS PO PRN (11:43)
[2021-07-27] MEDS: METHOCARBAMOL 500 MG TABLET PO PRN (16:45)
[2021-07-27] MEDS: cloNIDine HCL 0.1 MG TABLET PO SCH (21:56)
[2021-07-27] MEDS: THIAMINE HCL 100 MG TABLET (FP) PO SCH (21:56)
[2021-07-27] MEDS: SULFAMETHOXAZOLE/TRIMETHOPRIM 800MG/160MG D.S. TABLET PO SCH (21:56)
[2021-07-27] MEDS: QUEtiapine FUMARATE 200 MG TABLET PO SCH (21:56)
[2021-07-27] MEDS: LIDOCAINE PATCH REMOVAL MC SCH (21:59)
[2021-07-27] MEDS: AMITRIPTYLINE HCL 100 MG TABLET PO SCH (21:59)
[2021-07-27] MEDS ORDERED: MELATONIN 5 MG TABLETS PO SCH (22:00)
[2021-07-28] MEDS: SULFAMETHOXAZOLE/TRIMETHOPRIM 800MG/160MG D.S. TABLET PO SCH ×2 (10:38→21:27)
[2021-07-28] MEDS: NICOTINE 10 MG CARTRIDGE (INHALER) IH PRN ×3 (10:38→22:29)
[2021-07-28] MEDS: LIDOCAINE 5% TOPICAL PATCH TP SCH (10:38)
[2021-07-28] MEDS: NICOTINE 21 MG/24 HOURS TOPICAL PATCH TD SCH (10:38)
[2021-07-28] MEDS: PRENATAL VITAMINS W/ FOLIC ACID TABLET (FP) PO SCH (10:38)
[2021-07-28] MEDS: FLUoxetine HCL 20 MG CAPSULE PO SCH (10:38)
[2021-07-28] MEDS: METHOCARBAMOL 500 MG TABLET PO PRN ×2 (10:39→21:28)
[2021-07-28] MEDS: cloNIDine HCL 0.1 MG TABLET PO SCH ×2 (10:40→21:29)
[2021-07-28] MEDS: hydrOXYzine PAMOATE 50 MG CAPSULE (FP) PO PRN ×2 (13:47→21:28)
[2021-07-28] MEDS: AMITRIPTYLINE HCL 100 MG TABLET PO SCH (21:27)
[2021-07-28] MEDS: SUVOREXANT 10 MG TABLET PO PRN (21:27)
[2021-07-28] MEDS: LIDOCAINE PATCH REMOVAL MC SCH (21:28)
[2021-07-28] MEDS: QUEtiapine FUMARATE 200 MG TABLET PO SCH (21:28)
[2021-07-28] MEDS: THIAMINE HCL 100 MG TABLET (FP) PO SCH (21:28)
[2021-07-29] MEDS: NICOTINE 10 MG CARTRIDGE (INHALER) IH PRN ×3 (08:34→17:49)
[2021-07-29] MEDS: FLUoxetine HCL 20 MG CAPSULE PO SCH (09:40)
[2021-07-29] MEDS: SULFAMETHOXAZOLE/TRIMETHOPRIM 800MG/160MG D.S. TABLET PO SCH ×2 (09:40→21:38)
[2021-07-29] MEDS: NICOTINE 21 MG/24 HOURS TOPICAL PATCH TD SCH (09:40)
[2021-07-29] MEDS: PRENATAL VITAMINS W/ FOLIC ACID TABLET (FP) PO SCH (09:40)
[2021-07-29] MEDS: hydrOXYzine PAMOATE 50 MG CAPSULE (FP) PO PRN ×2 (09:41→21:38)
[2021-07-29] MEDS: METHOCARBAMOL 500 MG TABLET PO PRN ×2 (09:42→21:38)
[2021-07-29] MEDS: LIDOCAINE 5% TOPICAL PATCH TP SCH (09:43)
[2021-07-29] MEDS: IBUPROFEN 400 MG TABLET (FP) PO PRN (10:31)
[2021-07-29] MEDS: guaiFENesin 600 MG TABLET.ER (FP) PO SCH ×2 (12:53→21:38)
[2021-07-29] MEDS: cloNIDine HCL 0.1 MG TABLET PO PRN (17:56)
[2021-07-29] MEDS: SUVOREXANT 10 MG TABLET PO PRN (21:38)
[2021-07-29] MEDS: AMITRIPTYLINE HCL 100 MG TABLET PO SCH (21:38)
[2021-07-29] MEDS: QUEtiapine FUMARATE 200 MG TABLET PO SCH (21:38)
[2021-07-29] MEDS: THIAMINE HCL 100 MG TABLET (FP) PO SCH (21:38)
[2021-07-29] MEDS: LIDOCAINE PATCH REMOVAL MC SCH (21:39)
[2021-07-30] MEDS ORDERED: PT OWN MED DRAWER 7, Y5N ONE (08:32)
[2021-07-30] MEDS: SULFAMETHOXAZOLE/TRIMETHOPRIM 800MG/160MG D.S. TABLET PO SCH ×2 (10:03→21:23)
[2021-07-30] MEDS: FLUoxetine HCL 20 MG CAPSULE PO SCH (10:03)
[2021-07-30] MEDS: guaiFENesin 600 MG TABLET.ER (FP) PO SCH ×2 (10:03→21:24)
[2021-07-30] MEDS: PRENATAL VITAMINS W/ FOLIC ACID TABLET (FP) PO SCH (10:03)
[2021-07-30] MEDS: LIDOCAINE 5% TOPICAL PATCH TP SCH (10:03)
[2021-07-30] MEDS: NICOTINE 21 MG/24 HOURS TOPICAL PATCH TD SCH (10:03)
[2021-07-30] MEDS: METHOCARBAMOL 500 MG TABLET PO PRN ×2 (10:04→21:23)
[2021-07-30] MEDS: hydrOXYzine PAMOATE 50 MG CAPSULE (FP) PO PRN (10:04)
[2021-07-30] MEDS: NICOTINE 10 MG CARTRIDGE (INHALER) IH PRN ×3 (10:05→21:51)
[2021-07-30] MEDS: IBUPROFEN 400 MG TABLET (FP) PO PRN (11:41)
[2021-07-30] MEDS: cloNIDine HCL 0.1 MG TABLET PO PRN (16:58)
[2021-07-30] MEDS: SUVOREXANT 10 MG TABLET PO PRN (21:22)
[2021-07-30] MEDS: QUEtiapine FUMARATE 200 MG TABLET PO SCH (21:23)
[2021-07-30] MEDS: AMITRIPTYLINE HCL 100 MG TABLET PO SCH (21:23)
[2021-07-30] MEDS: LIDOCAINE PATCH REMOVAL MC SCH (21:23)
[2021-07-30] MEDS: THIAMINE HCL 100 MG TABLET (FP) PO SCH (21:24)
[2021-07-31] MEDS: NICOTINE 10 MG CARTRIDGE (INHALER) IH PRN ×3 (07:17→17:38)
[2021-07-31] MEDS: SULFAMETHOXAZOLE/TRIMETHOPRIM 800MG/160MG D.S. TABLET PO SCH ×2 (10:10→21:24)
[2021-07-31] MEDS: FLUoxetine HCL 20 MG CAPSULE PO SCH (10:10)
[2021-07-31] MEDS: LIDOCAINE 5% TOPICAL PATCH TP SCH (10:11)
[2021-07-31] MEDS: PRENATAL VITAMINS W/ FOLIC ACID TABLET (FP) PO SCH (10:11)
[2021-07-31] MEDS: METHOCARBAMOL 500 MG TABLET PO PRN ×2 (10:14→21:24)
[2021-07-31] MEDS: hydrOXYzine PAMOATE 50 MG CAPSULE (FP) PO PRN (10:14)
[2021-07-31] MEDS: NICOTINE 21 MG/24 HOURS TOPICAL PATCH TD SCH (10:15)
[2021-07-31] MEDS: guaiFENesin 600 MG TABLET.ER (FP) PO SCH ×2 (11:27→21:25)
[2021-07-31 15:19] LABS: URINE APPEARANCE CLOUDY; URINE BILIRUBIN NEGATIVE (NEGATIVE); URINE COLOR YELLOW; URINE GLUCOSE (UA) NEGATIVE (NEGATIVE); URINE KETONE NEGATIVE (NEGATIVE); URINE LEUK ESTERASE NEGATIVE (NEGATIVE); URINE NITRITE NEGATIVE (NEGATIVE); URINE PROTEIN NEGATIVE (NEGATIVE); URINE UROBILINOGEN 0.2 mg/dL (0.2-1.0)
[2021-07-31] MEDS: cloNIDine HCL 0.1 MG TABLET PO PRN (17:37)
[2021-07-31] MEDS: QUEtiapine FUMARATE 200 MG TABLET PO SCH (21:24)
[2021-07-31] MEDS: THIAMINE HCL 100 MG TABLET (FP) PO SCH (21:24)
[2021-07-31] MEDS: AMITRIPTYLINE HCL 100 MG TABLET PO SCH (21:24)
[2021-07-31] MEDS: LIDOCAINE PATCH REMOVAL MC SCH (21:25)
[2021-07-31] MEDS: SUVOREXANT 10 MG TABLET PO PRN (21:26)
[2021-08-01] MEDS: NICOTINE 10 MG CARTRIDGE (INHALER) IH PRN ×2 (08:29→14:40)
[2021-08-01] MEDS: SULFAMETHOXAZOLE/TRIMETHOPRIM 800MG/160MG D.S. TABLET PO SCH ×2 (09:57→21:29)
[2021-08-01] MEDS: guaiFENesin 600 MG TABLET.ER (FP) PO SCH ×2 (09:57→21:29)
[2021-08-01] MEDS: NICOTINE 21 MG/24 HOURS TOPICAL PATCH TD SCH (09:58)
[2021-08-01] MEDS: FLUoxetine HCL 20 MG CAPSULE PO SCH (09:58)
[2021-08-01] MEDS: LIDOCAINE 5% TOPICAL PATCH TP SCH (09:58)
[2021-08-01] MEDS: hydrOXYzine PAMOATE 50 MG CAPSULE (FP) PO PRN (10:00)
[2021-08-01] MEDS: PRENATAL VITAMINS W/ FOLIC ACID TABLET (FP) PO SCH (10:09)
[2021-08-01] MEDS: cloNIDine HCL 0.1 MG TABLET PO PRN (18:02)
[2021-08-01] MEDS: SUVOREXANT 10 MG TABLET PO PRN (21:27)
[2021-08-01] MEDS: QUEtiapine FUMARATE 200 MG TABLET PO SCH (21:29)
[2021-08-01] MEDS: AMITRIPTYLINE HCL 100 MG TABLET PO SCH (21:29)
[2021-08-01] MEDS: THIAMINE HCL 100 MG TABLET (FP) PO SCH (21:29)
[2021-08-01] MEDS: LIDOCAINE PATCH REMOVAL MC SCH (21:30)
[2021-08-02] MEDS: NICOTINE 10 MG CARTRIDGE (INHALER) IH PRN ×4 (07:24→22:31)
[2021-08-02] MEDS: PRENATAL VITAMINS W/ FOLIC ACID TABLET (FP) PO SCH (10:09)
[2021-08-02] MEDS: SULFAMETHOXAZOLE/TRIMETHOPRIM 800MG/160MG D.S. TABLET PO SCH ×2 (10:09→21:32)
[2021-08-02] MEDS: METHOCARBAMOL 500 MG TABLET PO PRN ×2 (10:10→21:32)
[2021-08-02] MEDS: hydrOXYzine PAMOATE 50 MG CAPSULE (FP) PO PRN ×2 (10:10→16:05)
[2021-08-02] MEDS: FLUoxetine HCL 20 MG CAPSULE PO SCH (10:10)
[2021-08-02] MEDS: LIDOCAINE 5% TOPICAL PATCH TP SCH (10:11)
[2021-08-02] MEDS: NICOTINE 21 MG/24 HOURS TOPICAL PATCH TD SCH (10:11)
[2021-08-02] MEDS: guaiFENesin 600 MG TABLET.ER (FP) PO SCH ×2 (10:12→21:32)
[2021-08-02] MEDS: IBUPROFEN 400 MG TABLET (FP) PO PRN (18:57)
[2021-08-02] MEDS: QUEtiapine FUMARATE 200 MG TABLET PO SCH (21:32)
[2021-08-02] MEDS: AMITRIPTYLINE HCL 100 MG TABLET PO SCH (21:32)
[2021-08-02] MEDS: THIAMINE HCL 100 MG TABLET (FP) PO SCH (21:32)
[2021-08-02] MEDS: SUVOREXANT 10 MG TABLET PO PRN (21:32)
[2021-08-02] MEDS: LIDOCAINE PATCH REMOVAL MC SCH (21:33)
[2021-08-03] MEDS: PRENATAL VITAMINS W/ FOLIC ACID TABLET (FP) PO SCH (09:08)
[2021-08-03] MEDS: SULFAMETHOXAZOLE/TRIMETHOPRIM 800MG/160MG D.S. TABLET PO SCH (09:08)
[2021-08-03] MEDS: FLUoxetine HCL 20 MG CAPSULE PO SCH (09:08)
[2021-08-03] MEDS: LIDOCAINE 5% TOPICAL PATCH TP SCH (09:08)
[2021-08-03] MEDS: NICOTINE 21 MG/24 HOURS TOPICAL PATCH TD SCH (09:09)
[2021-08-03] MEDS: hydrOXYzine PAMOATE 50 MG CAPSULE (FP) PO PRN ×4 (09:10→21:24)
[2021-08-03] MEDS: METHOCARBAMOL 500 MG TABLET PO PRN ×2 (09:10→21:24)
[2021-08-03] MEDS: guaiFENesin 600 MG TABLET.ER (FP) PO SCH ×2 (12:47→21:24)
[2021-08-03] MEDS: LACTOBACILLUS ACIDOPHILUS 1 TABLET PO SCH (14:17)
[2021-08-03] MEDS: NICOTINE 10 MG CARTRIDGE (INHALER) IH PRN (14:18)
[2021-08-03] MEDS: cloNIDine HCL 0.1 MG TABLET PO PRN (17:32)
[2021-08-03] MEDS: QUEtiapine FUMARATE 200 MG TABLET PO SCH (21:24)
[2021-08-03] MEDS: THIAMINE HCL 100 MG TABLET (FP) PO SCH (21:24)
[2021-08-03] MEDS: AMITRIPTYLINE HCL 100 MG TABLET PO SCH (21:25)
[2021-08-03] MEDS: SUVOREXANT 10 MG TABLET PO PRN (21:26)
[2021-08-03] MEDS: LIDOCAINE PATCH REMOVAL MC SCH (21:50)
[2021-08-04] MEDS: NICOTINE 10 MG CARTRIDGE (INHALER) IH PRN ×3 (06:45→16:34)
[2021-08-04] MEDS: METHOCARBAMOL 500 MG TABLET PO PRN ×2 (10:16→21:34)
[2021-08-04] MEDS: hydrOXYzine PAMOATE 50 MG CAPSULE (FP) PO PRN ×2 (10:16→16:53)
[2021-08-04] MEDS: PRENATAL VITAMINS W/ FOLIC ACID TABLET (FP) PO SCH (10:16)
[2021-08-04] MEDS: FLUoxetine HCL 20 MG CAPSULE PO SCH (10:16)
[2021-08-04] MEDS: LACTOBACILLUS ACIDOPHILUS 1 TABLET PO SCH (10:16)
[2021-08-04] MEDS: NICOTINE 21 MG/24 HOURS TOPICAL PATCH TD SCH (10:16)
[2021-08-04] MEDS: LIDOCAINE 5% TOPICAL PATCH TP SCH (10:17)
[2021-08-04] MEDS: guaiFENesin 600 MG TABLET.ER (FP) PO SCH ×2 (10:17→21:35)
[2021-08-04] MEDS: cloNIDine HCL 0.1 MG TABLET PO PRN (17:44)
[2021-08-04] MEDS: QUEtiapine FUMARATE 200 MG TABLET PO SCH (21:34)
[2021-08-04] MEDS: THIAMINE HCL 100 MG TABLET (FP) PO SCH (21:34)
[2021-08-04] MEDS: AMITRIPTYLINE HCL 100 MG TABLET PO SCH (21:35)
[2021-08-04] MEDS: LIDOCAINE PATCH REMOVAL MC SCH (21:35)
[2021-08-04] MEDS: SUVOREXANT 10 MG TABLET PO PRN (21:37)
[2021-08-05] MEDS: NICOTINE 10 MG CARTRIDGE (INHALER) IH PRN ×3 (07:53→19:47)
[2021-08-05] MEDS: FLUoxetine HCL 20 MG CAPSULE PO SCH (10:05)
[2021-08-05] MEDS: PRENATAL VITAMINS W/ FOLIC ACID TABLET (FP) PO SCH (10:05)
[2021-08-05] MEDS: LIDOCAINE 5% TOPICAL PATCH TP SCH (10:06)
[2021-08-05] MEDS: LACTOBACILLUS ACIDOPHILUS 1 TABLET PO SCH (10:06)
[2021-08-05] MEDS: guaiFENesin 600 MG TABLET.ER (FP) PO SCH ×2 (10:07→21:29)
[2021-08-05] MEDS: NICOTINE 21 MG/24 HOURS TOPICAL PATCH TD SCH (10:07)
[2021-08-05] MEDS: METHOCARBAMOL 500 MG TABLET PO PRN ×2 (10:09→21:32)
[2021-08-05] MEDS: hydrOXYzine PAMOATE 50 MG CAPSULE (FP) PO PRN ×2 (10:09→21:32)
[2021-08-05] MEDS: cloNIDine HCL 0.1 MG TABLET PO PRN (17:41)
[2021-08-05] MEDS: QUEtiapine FUMARATE 200 MG TABLET PO SCH (21:28)
[2021-08-05] MEDS: THIAMINE HCL 100 MG TABLET (FP) PO SCH (21:28)
[2021-08-05] MEDS: LIDOCAINE PATCH REMOVAL MC SCH (21:29)
[2021-08-05] MEDS: AMITRIPTYLINE HCL 100 MG TABLET PO SCH (21:32)
[2021-08-05] MEDS: SUVOREXANT 10 MG TABLET PO PRN (21:32)
[2021-08-06] MEDS: NICOTINE 10 MG CARTRIDGE (INHALER) IH PRN ×3 (07:03→20:41)
[2021-08-06] MEDS: FLUoxetine HCL 20 MG CAPSULE PO SCH (10:06)
[2021-08-06] MEDS: NICOTINE 21 MG/24 HOURS TOPICAL PATCH TD SCH (10:06)
[2021-08-06] MEDS: PRENATAL VITAMINS W/ FOLIC ACID TABLET (FP) PO SCH (10:06)
[2021-08-06] MEDS: LACTOBACILLUS ACIDOPHILUS 1 TABLET PO SCH (10:07)
[2021-08-06] MEDS: LIDOCAINE 5% TOPICAL PATCH TP SCH (10:07)
[2021-08-06] MEDS: guaiFENesin 600 MG TABLET.ER (FP) PO SCH ×2 (10:07→21:33)
[2021-08-06] MEDS: hydrOXYzine PAMOATE 50 MG CAPSULE (FP) PO PRN ×2 (10:08→21:36)
[2021-08-06] MEDS: METHOCARBAMOL 500 MG TABLET PO PRN ×2 (10:08→21:33)
[2021-08-06] MEDS: cloNIDine HCL 0.1 MG TABLET PO PRN (18:04)
[2021-08-06] MEDS: QUEtiapine FUMARATE 200 MG TABLET PO SCH (21:33)
[2021-08-06] MEDS: AMITRIPTYLINE HCL 100 MG TABLET PO SCH (21:33)
[2021-08-06] MEDS: THIAMINE HCL 100 MG TABLET (FP) PO SCH (21:33)
[2021-08-06] MEDS: LIDOCAINE PATCH REMOVAL MC SCH (21:34)
[2021-08-06] MEDS: SUVOREXANT 10 MG TABLET PO PRN (21:35)
[2021-08-07] MEDS: LIDOCAINE 5% TOPICAL PATCH TP SCH (10:03)
[2021-08-07] MEDS: NICOTINE 21 MG/24 HOURS TOPICAL PATCH TD SCH (10:03)
[2021-08-07] MEDS: PRENATAL VITAMINS W/ FOLIC ACID TABLET (FP) PO SCH (10:03)
[2021-08-07] MEDS: FLUoxetine HCL 20 MG CAPSULE PO SCH (10:04)
[2021-08-07] MEDS: hydrOXYzine PAMOATE 50 MG CAPSULE (FP) PO PRN ×3 (10:04→21:41)
[2021-08-07] MEDS: guaiFENesin 600 MG TABLET.ER (FP) PO SCH ×2 (10:04→21:37)
[2021-08-07] MEDS: LACTOBACILLUS ACIDOPHILUS 1 TABLET PO SCH (10:04)
[2021-08-07] MEDS: METHOCARBAMOL 500 MG TABLET PO PRN ×2 (10:04→21:38)
[2021-08-07] MEDS: NICOTINE 10 MG CARTRIDGE (INHALER) IH PRN ×2 (13:03→21:39)
[2021-08-07] MEDS: cloNIDine HCL 0.1 MG TABLET PO PRN (18:17)
[2021-08-07] MEDS: THIAMINE HCL 100 MG TABLET (FP) PO SCH (21:36)
[2021-08-07] MEDS: LIDOCAINE PATCH REMOVAL MC SCH (21:37)
[2021-08-07] MEDS: QUEtiapine FUMARATE 200 MG TABLET PO SCH (21:37)
[2021-08-07] MEDS: AMITRIPTYLINE HCL 100 MG TABLET PO SCH (21:38)
[2021-08-07] MEDS: SUVOREXANT 10 MG TABLET PO PRN (21:40)
[2021-08-08] MEDS: IBUPROFEN 400 MG TABLET (FP) PO PRN ×2 (07:19→21:52)
[2021-08-08] MEDS: NICOTINE 10 MG CARTRIDGE (INHALER) IH PRN (07:20)
[2021-08-08 07:29] VITALS: PULSE 90
[2021-08-08] MEDS: PRENATAL VITAMINS W/ FOLIC ACID TABLET (FP) PO SCH (10:24)
[2021-08-08] MEDS: hydrOXYzine PAMOATE 50 MG CAPSULE (FP) PO PRN ×2 (10:24→21:52)
[2021-08-08] MEDS: LACTOBACILLUS ACIDOPHILUS 1 TABLET PO SCH (10:24)
[2021-08-08] MEDS: FLUoxetine HCL 20 MG CAPSULE PO SCH (10:24)
[2021-08-08] MEDS: guaiFENesin 600 MG TABLET.ER (FP) PO SCH ×2 (10:24→21:52)
[2021-08-08] MEDS: METHOCARBAMOL 500 MG TABLET PO PRN ×2 (10:24→21:52)
[2021-08-08] MEDS: LIDOCAINE 5% TOPICAL PATCH TP SCH (10:25)
[2021-08-08] MEDS: NICOTINE 21 MG/24 HOURS TOPICAL PATCH TD SCH (10:25)
[2021-08-08] MEDS: SUVOREXANT 10 MG TABLET PO PRN (21:51)
[2021-08-08] MEDS: QUEtiapine FUMARATE 200 MG TABLET PO SCH (21:52)
[2021-08-08] MEDS: AMITRIPTYLINE HCL 100 MG TABLET PO SCH (21:52)
[2021-08-08] MEDS: THIAMINE HCL 100 MG TABLET (FP) PO SCH (21:52)
[2021-08-08] MEDS ORDERED: SUVOREXANT 10 MG TABLET PO PRN (22:00)
[2021-08-08] MEDS: LIDOCAINE PATCH REMOVAL MC SCH (22:39)
[2021-08-09] MEDS: NICOTINE 10 MG CARTRIDGE (INHALER) IH PRN (08:06)
[2021-08-09 08:21] VITALS: BP 121/84; TEMP 98
[2021-08-09] MEDS: PRENATAL VITAMINS W/ FOLIC ACID TABLET (FP) PO SCH (10:11)
[2021-08-09] MEDS: hydrOXYzine PAMOATE 50 MG CAPSULE (FP) PO PRN ×2 (10:11→13:48)
[2021-08-09] MEDS: LIDOCAINE 5% TOPICAL PATCH TP SCH (10:12)
[2021-08-09] MEDS: guaiFENesin 600 MG TABLET.ER (FP) PO SCH (10:12)
[2021-08-09] MEDS: NICOTINE 21 MG/24 HOURS TOPICAL PATCH TD SCH (10:12)
[2021-08-09] MEDS: METHOCARBAMOL 500 MG TABLET PO PRN (10:12)
[2021-08-09] MEDS: FLUoxetine HCL 20 MG CAPSULE PO SCH (10:12)
[2021-08-09] MEDS: LACTOBACILLUS ACIDOPHILUS 1 TABLET PO SCH (10:12)
== END 2021-08-09 15:07 | disposition left against medical advice (07) | DRG 894 ==
LOC: YASAS 11:38 → Y5N 11:40
PROVIDERS: ADMIT Allergy & Immunology; ATTEND Allergy & Immunology
PROC: HZ42ZZZ Group Counseling for Substance Abuse Treatment, Cognitive-Behavioral (ICD-10-PCS; principal; 2021-07-27)
DX: F11.20 Opioid dependence, uncomplicated (principal); F14.20 Cocaine dependence, uncomplicated; F17.213 Nicotine dependence, cigarettes, with withdrawal; F19.282 Other psychoactive substance dependence with psychoactive substance-induced sleep disorder; F19.280 Other psychoactive substance dependence with psychoactive substance-induced anxiety disorder; F31.81 Bipolar II disorder; F10.20 Alcohol dependence, uncomplicated; F31.9 Bipolar disorder, unspecified; F43.10 Post-traumatic stress disorder, unspecified; M54.9 Dorsalgia, unspecified; G89.29 Other chronic pain; M51.27 Other intervertebral disc displacement, lumbosacral region; Z62.810 Personal history of physical and sexual abuse in childhood; Z86.69 Personal history of other diseases of the nervous system and sense organs; Z56.0 Unemployment, unspecified
CPT/HCPCS: 81003; 87086; J0735